=== PATIENT | female | born 1955 | race Caucasian/White ===

== ENCOUNTER 2017-10-01 10:22 | Emergency (ER) | payer OTHER ==
[~2017-10-01] VITALS: Ht 152.4 cm; Wt 68.2 kg
[~2017-10-01 10:22] MED LIST: ALBUAER2 INH; AMOX500C3 PO; GLC500 PO; HYDROCODONE HOMATROPINE PO; LEVO25TA PO
[2017-10-01 10:28] VITALS: TEMP 37.5; Ht 152.4 cm; Wt 68.2 kg
[2017-10-01] MEDS ORDERED: GLC850 PO (10:50)
[2017-10-01] MEDS ORDERED: ATOR10TA82 PO (10:50)
[2017-10-01] MEDS ORDERED: LEVO25TA5 PO (10:50)
[2017-10-01] MEDS ORDERED: KETOROLAC TROMETHAMINE 30 MG/ML VIAL IV STA (11:02)
[2017-10-01] MEDS ORDERED: ALBUTEROL 0.083% NEBU SOLN 3 ML VIAL INH STA (11:02)
--- NOTE | 2017-10-01 11:18 | EMERGENCY ROOM VISIT NOTE ---
History Report prepared by Paul: Jade Soni Under the Supervision of: Dr. Mj Smith M.D. First contact with patient: 10:42 Chief Complaint: FLU LIKE SX Stated Complaint: CHILLS, VOMITING, DAVIS, EXCESSIVE COUGHING History of Present Illness The patient is a 62 year old female who presents to the Emergency Room with complaints of a persistent cough that began night. She also notes that she has a bad headache, chills, URI congestion, and has vomited a couple of times. She describes this as "the worst headache of her life" but it does not hurt her to put her chin to her chest. The patient denies any abdominal pain or muscle aches. She has taken throat spray and Advil and has drank "a little bit of water and ingris anni." The patient states that she had a little bit of juice this morning but she is very thirsty for water. Source of History: patient Onset: 2 days ago Position: chest (respiratory ) Quality: other (cough ) Timing: other (persistent) Associated Symptoms: + headache (worst headache of her life), No abdominal pain Note: Denies muscle aches. Review of Systems See HPI for pertinent positives & negatives. A total of 10 systems reviewed and were otherwise negative. Past Medical & Surgical Medical Problems: (1) Diab Stefanie Wo Compl, Type Ii Or Unspec Type, Not Uncntrld (2) Hypothyroidism (3) Strain of right Achilles tendon Surgical Problems: (1) Hx of dilation and curettage (2) Hx of tonsillectomy Family History Heart disease Social History Smoking Status: Never Smoker Alcohol Use: none Marital Status: Housing Status: lives with family Current/Historical Medications Scheduled Atorvastatin (Lipitor), 10 MG PO DAILY Levothyroxine Sodium (Levothyroxine Sodium), 25 MCG PO DAILY Metformin HCl (Metformin HCl), 850 MG PO DAILY Oseltamivir Phosphate (Tamiflu), 75 MG PO BID Allergies Coded Allergies: Azithromycin (Unverified Allergy, Mild, 02/01/15) Physical Exam Vital Signs Date Time Temp Pulse Resp B/P (MAP) Pulse Ox O2 Delivery O2 Flow Rate FiO2 10/01/17 12:21 108 17 126/64 96 10/01/17 11:48 96 Room Air 10/01/17 11:48 94 Room Air 10/01/17 11:48 108 17 126/64 96 Room Air 10/01/17 10:45 109 10/01/17 10:28 37.5 115 18 138/83 96 Physical Exam GENERAL: Patient is a healthy-appearing well-nourished female HEAD: Normocephalic atraumatic EYES: Ocular movements intact pupils equal and react to light OROPHARYNX mucous membranes are moist no exudates present no erythema or edema present NECK: Supple no nuchal rigidity. No evidence of meningitis encephalitis on exam. CHEST: Good equal expansion LUNGS: Clear and equal to auscultation CARDIAC: Normal S1 and S2 ABDOMEN: Soft nontender no guarding BACK: No CVA tenderness EXTREMITIES: No pain upon palpation normal muscle strength in all groups no clubbing cyanosis or edema NEURO: Patient is following commands and answering questions appropriately. Alert and oriented x3 Cranial Nerves 2-12 grossly intact Medical Decision & Procedures ER Provider Diagnostic Interpretation: Radiology results as stated below per my review and radiologist interpretation: SINGLE VIEW CHEST CLINICAL HISTORY: Dyspnea. FINDINGS: An AP, portable, upright chest radiograph is compared to study dated 02/01/2015. The examination is mildly degraded by portable technique and patient rotation. The cardiomediastinal silhouette is unremarkable. There is mild atherosclerotic calcification of the thoracic aorta. Chronic interstitial thickening is similar to previous. The lungs and pleural spaces are clear. No pneumothorax is seen. The skeletal structures are osteopenic. The bony thorax is grossly intact. Calcific tendinopathy is noted in the left shoulder. IMPRESSION: No active disease in the chest. Electronically signed by: Tobi Lyons M.D. 10/01/2017 11:26 AM Dictated Date/Time: 10/01/2017 11:25 AM Laboratory Results 10/01/17 11:10 Red Blood Count 4.58, Mean Corpuscular Volume 82.5, Mean Corpuscular Hemoglobin 28.6, Mean Corpuscular Hemoglobin Concent 34.7, Mean Platelet Volume 10.3, Neutrophils (%) (Auto) 78.8, Lymphocytes (%) (Auto) 9.1, Monocytes (%) (Auto) 11.6, Eosinophils (%) (Auto) 0.1, Basophils (%) (Auto) 0.1, Neutrophils # (Auto ) 6.09, Lymphocytes # (Auto) 0.70, Monocytes # (Auto) 0.90, Eosinophils # (Auto ) 0.01, Basophils # (Auto) 0.01 10/01/17 11:10 Test 10/01/17 10:40 10/01/17 11:10 Influenza Type A Antigen POS for Influ A (NEG) Influenza Type B Antigen Neg for Influ B (NEG) White Blood Count 7.73 K/uL (4.8-10.8) Red Blood Count 4.58 M/uL (4.2-5.4) Hemoglobin 13.1 g/dL (12.0-16.0) Hematocrit 37.8 % (37-47) Mean Corpuscular Volume 82.5 fL (80-100) Mean Corpuscular Hemoglobin 28.6 pg (25-34) Mean Corpuscular Hemoglobin Concent 34.7 g/dl (32-36) Platelet Count 209 K/uL (130-400) Mean Platelet Volume 10.3 fL (7.4-10.4) Neutrophils (%) (Auto) 78.8 % Lymphocytes (%) (Auto) 9.1 % Monocytes (%) (Auto) 11.6 % Eosinophils (%) (Auto) 0.1 % Basophils (%) (Auto) 0.1 % Neutrophils # (Auto) 6.09 K/uL (1.4-6.5) Lymphocytes # (Auto) 0.70 K/uL (1.2-3.4) Monocytes # (Auto) 0.90 K/uL (0.11-0.59) Eosinophils # (Auto) 0.01 K/uL (0-0.5) Basophils # (Auto) 0.01 K/uL (0-0.2) RDW Standard Deviation 37.3 fL (36.4-46.3) RDW Coefficient of Variation 12.4 % (11.5-14.5) Immature Granulocyte % (Auto) 0.3 % Immature Granulocyte # (Auto) 0.02 K/uL (0.00-0.02) Anion Gap 10.0 mmol/L (3-11) Est Creatinine Clear Calc Drug Dose 77.5 ml/min Estimated GFR () 110.1 Estimated GFR (Non- 95.0 BUN/Creatinine Ratio 20.4 (10-20) Calcium Level 8.8 mg/dl (8.5-10.1) Total Bilirubin 0.6 mg/dl (0.2-1) Aspartate Amino Transf (AST/SGOT) 18 U/L (15-37) Alanine Aminotransferase (ALT/SGPT) 23 U/L (12-78) Alkaline Phosphatase 120 U/L (45-117) Total Protein 7.2 gm/dl (6.4-8.2) Albumin 3.6 gm/dl (3.4-5.0) Globulin 3.6 gm/dl (2.5-4.0) Albumin/Globulin Ratio 1.0 (0.9-2) Labs reviewed by ED physician. Medications Administered Medications (Trade) Dose Ordered Sig/Ian Route Start Time Stop Time Status Last Admin Dose Admin Albuterol Sulfate (Ventolin 0.083% 2.5MG/3ML Neb) 2.5 mg NOW STAT INH 10/01/17 11:02 10/01/17 11:04 DC 10/01/17 11:19 2.5 MG Ketorolac Tromethamine (Toradol Inj) 30 mg NOW STAT IV 10/01/17 11:02 10/01/17 11:04 DC 10/01/17 11:19 30 MG Oseltamivir Phosphate (Tamiflu Cap) 75 mg NOW STAT PO 10/01/17 11:26 10/01/17 11:27 DC 10/01/17 11:48 75 MG Acetaminophen (Tylenol Tab) 1,000 mg NOW STAT PO 10/01/17 11:59 10/01/17 12:00 DC 10/01/17 12:16 1,000 MG ECG Indication: other (Fever) Rate (beats per minute): 103 Rhythm: sinus tachycardia Findings: no acute ischemic change, no ectopy ED Course 1102: Ordered Toradol 30 mg IV, Albuterol Sulfate 2.5 mg INH 1115: Past medical records reviewed. The patient was evaluated in room B6. A complete history and physical examination was performed. 1126 Ordered Tamiflu 75 mg PO. 1159: Ordered Tylenol 1000 mg PO. 1239: Upon reexamination the patient is resting in bed. I discussed results and treatment plan with the patient. She verbalizes agreement and understanding. The patient is ready for discharge. Medical Decision Differential diagnosis: Etiologies such as viral syndrome, otitis, pharyngitis, pneumonia, influenza, meningitis, urinary tract infection, sepsis, bacteremia, as well as others were entertained. -Us is a 62-year-old feel who presents emergency department complaining of headache along with muscle aches and pains. She is positive for the flu. She was given Toradol, seen and Benadryl here in the emergency department. Repeat examination revealed much improvement the patient's symptoms. I do feel that the patient as well as to be discharged home and gave her the pros and cons of starting Tamiflu. The patient wishes to start the Tamiflu using shared medical decision-making and will follow-up with her primary care physician. Blood Pressure Screening Patient's blood pressure: Normal blood pressure Impression Primary Impression: Influenza A Scribe Attestation The scribe's documentation has been prepared under my direction and personally reviewed by me in its entirety. I confirm that the note above accurately reflects all work, treatment, procedures, and medical decision making performed by me. Departure Information Dispostion Home / Self-Care Prescriptions Oseltamivir Phosphate (Tamiflu) 75 Mg Cap 75 MG PO BID, #10 CAP Prov: Mj Smith MD 10/01/17 Referrals Vivi Pena M.D. (PCP) Forms HOME CARE DOCUMENTATION FORM, IMPORTANT VISIT INFORMATION Patient Instructions My [facility] Additional Instructions You have been examined and treated today on an emergency basis only. This is not a substitute for, or an effort to provide, complete comprehensive medical care. It is impossible to recognize and treat all injuries or illnesses in a single emergency department visit. It is therefore important that you follow up closely with DR Pena. Call as soon as possible for an appointment. Thank you for your time and consideration. I look forward to speaking with you again soon. Please don't hesitate to call us if you have any questions.
[2017-10-01 11:23] LABS: INFLUENZA B ANTIGEN Neg for Influ B (NEG)
[2017-10-01] MEDS ORDERED: OSELTAMIVIR PHOSPHATE 75 MG CAP PO STA (11:26)
--- NOTE | 2017-10-01 11:27 | DIAGNOSTIC IMAGING REPORT ---
SINGLE VIEW CHEST CLINICAL HISTORY: Dyspnea. FINDINGS: An AP, portable, upright chest radiograph is compared to study dated 02/01/2015. The examination is mildly degraded by portable technique and patient rotation. The cardiomediastinal silhouette is unremarkable. There is mild atherosclerotic calcification of the thoracic aorta. Chronic interstitial thickening is similar to previous. The lungs and pleural spaces are clear. No pneumothorax is seen. The skeletal structures are osteopenic. The bony thorax is grossly intact. Calcific tendinopathy is noted in the left shoulder. IMPRESSION: No active disease in the chest. Electronically signed by: Tobi Lyons M.D. 10/01/2017 11:26 AM Dictated Date/Time: 10/01/2017 11:25 AM
[2017-10-01 11:47] LABS: BASO % 0.1 %; BASO ABS # 0.01 K/uL (0-0.2); EOS % 0.1 %; EOS ABS # 0.01 K/uL (0-0.5); HEMATOCRIT 37.8 % (37-47); HEMOGLOBIN 13.1 g/dL (12.0-16.0); IG# 0.02 K/uL (0.00-0.02); LYMPH % 9.1 %; MEAN CELL VOLUME 82.5 fL (80-100); MEAN CORPUSCULAR HEMOGLOBIN 28.6 pg (25-34); MEAN CORPUSCULAR HGB CONC 34.7 g/dl (32-36); MEAN PLATELET VOLUME 10.3 fL (7.4-10.4); MONO % 11.6 %; NEUT % 78.8 %; NEUT ABS # 6.09 K/uL (1.4-6.5); PLATELET COUNT 209 K/uL (130-400); RED CELL DISTRIBUTION WIDTH CV 12.4 % (11.5-14.5); RED CELL DISTRIBUTION WIDTH SD 37.3 fL (36.4-46.3); WHITE BLOOD COUNT 7.73 K/uL (4.8-10.8)
[2017-10-01 11:48] VITALS: O2SAT 96
[2017-10-01 11:53] LABS: ALBUMIN 3.6 gm/dl (3.4-5.0); CALCIUM 8.8 mg/dl (8.5-10.1); CREATININE 0.64 mg/dl (0.60-1.20); POTASSIUM 3.8 mmol/L (3.5-5.1)
[2017-10-01 11:56] LABS: TOTAL PROTEIN 7.2 gm/dl (6.4-8.2)
[2017-10-01] MEDS ORDERED: ACETAMINOPHEN 500 MG TAB PO STA (11:59)
[2017-10-01] MEDS ORDERED: OSEL75CA23 PO (12:02)
[2017-10-01 12:21] VITALS: BP 126/64; PULSE 108; O2SAT 96
== END 2017-10-01 12:22 | disposition home or self-care (01) ==
LOC: C.EDB 10:23
DX: J09.X2 Influenza due to identified novel influenza A virus with other respiratory manifestations (principal); E11.9 Type 2 diabetes mellitus without complications; E03.9 Hypothyroidism, unspecified; Z82.49 Family history of ischemic heart disease and other diseases of the circulatory system

== ENCOUNTER 2024-08-25 11:21 | Observation (INO) ==
--- NOTE | 2024-08-25 11:52 | Emergency Department Note ---
Impression & Plan CHF (congestive heart failure), Acute flank pain, Pleural effusion ED Provider Note NAME: JOSEPH BELL AGE: 69 SEX: F : 1955 ARRIVES VIA: Walk-In INFORMANT: Patient ED PROVIDER(S): Sergo De La Cruz DO CHIEF COMPLAINT: Left flank pain HPI: Patient is a 69-year-old female who presents ER for left flank pain. She notes this has been coming going for the past 6 weeks. She denies any headache or change in vision. No chest pain or shortness of breath. No nausea, vomiting, or diarrhea. No dysuria, urgency, or frequency. She was treated for UTI but notes that nothing has changed. She cannot figure out what causes the pain to come and go. Does come and go several times a day. She denies any weakness or numbness in the arms or legs. Pain has been controlled with Motrin and Tylenol. ADDITIONAL HISTORY OBTAINED: Per HPI Chronic Medical/Social Conditions Affecting Care: Per HPI PAST MEDICAL HISTORY:See Below PAST SURGICAL HISTORY:See Below FAMILY HISTORY:See Below SOCIAL HISTORY:See Below HOME MEDICATIONS:See Below ALLERGIES:See Below VITALS:See Below PHYSICAL EXAMINATION: GENERAL: Sitting up in bed, alert, well appearing, well nourished, no distress, non-toxic EYE EXAM: normal conjunctiva. OROPHARYNX: no exudate, no erythema, lips, buccal mucosa, and tongue normal and mucous membranes are moist NECK: supple, no nuchal rigidity, no adenopathy, non-tender LUNGS: Clear to auscultation. Normal chest wall mechanics HEART: no murmurs, S1 normal and S2 normal ABDOMEN: abdomen soft, non-tender, normo-active bowel sounds, no masses, no rebound or guarding. BACK: Back is symmetrical on inspection and there is no deformity, no midline tenderness, no CVA tenderness. SKIN: no rashes and no bruising UPPER EXTREMITIES: upper extremities are grossly normal. LOWER EXTREMITIES: No pitting edema. NEURO EXAM: Normal sensorium, cranial nerves II-XII grossly intact, normal speech, no gross weakness of arms, no gross weakness of legs. Ambulates without difficulty MEDICAL DECISION MAKING: Patient is a 69-year-old female who presents to the ER for the above-stated complaint. IV was established and blood work was obtained. Labs show no significant leukocytosis. Mild anemia 10.6. BMP with a potassium of 3.4. LFTs bilirubin was unremarkable. Troponin was mildly up at 9018. Lipase normal. UA was clean. Chest x-ray with bilateral pleural effusions and CT abdomen pelvis showed large effusions. Patient has no history of CHF. Patient was updated bedside discussed with the hospitalist admitted for further workup. Consults/Care Managements Discussions: Per MDM Triage Nursing notes reviewed. Limited review of prior medical records performed Vital Signs: reviewed and remarkable for HTN Differential diagnosis: Differential diagnoses includes but is not limited to gastritis, peptic ulcer disease, GERD, gallbladder disease, pancreatitis, small bowel obstruction, appendicitis, diverticulitis, hernia, urinary tract infection, torsion, perforation, trauma, infectious. ER treatment provided: See below Diagnostics interpreted by me include EKG and cardiac monitoring as listed below: -Cardiac Monitoring: An order was placed for continuous cardiac monitoring. The monitor shows a rate of 90 with sinus rhythm. -ECG: Sinus rhythm rate of 93 Normal axis No PVCs QTc 450 -Laboratory studies:Interpreted by me as stated above in MDM and shown below. Imaging studies: Xrays: As interpreted by me: Portable AP upright 1 view of the chest shows bilateral effusions CTs show: CT abdomen pelvis shows pleural effusions Procedures:none Critical Care: None Past Med/Surg History Problem List (Updated 08/25/24 @ 17:11 by Sergo De La Cruz DO) Pleural effusion (Acute) Acute flank pain (Acute) CHF (congestive heart failure) (Acute) Upper respiratory infection (Acute) Loose body in knee (Acute) Knee pain, right (Acute) Medical History Arthritis Prediabetes "Not taking anything - PCP monitoring" Surgical History Hx of left cataract extraction Hx of wisdom tooth extraction Hx of colonoscopy "Unsure when" Social History Smoking Status: Never smoker Second Hand Exposure: No; Do You Dip or Chew Tobacco: No; Hx Alcohol Use: Yes Alcohol type: wine Hx Substance Use: No Preferred Language: Albanian Communication Ability: Effective 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 Beliefs That Will Affect Care: None Current Living Situation: Alone Feels Safe at Home: Yes Assistive Devices: Glasses Allergies Allergies Allergy/AdvReac Type Severity Reaction Status Date / Time azithromycin Allergy Mild Unknown Verified 08/25/24 15:17 garlic Allergy Diarrhea Verified 08/25/24 15:17 onion Allergy Diarrhea Verified 08/25/24 15:17 Home Meds Home Medications Medication Instructions Recorded Confirmed acetaminophen 325 mg tablet 325 mg PO QID PRN Pain 08/25/24 08/25/24 benzonatate 200 mg capsule 200 mg PO Q12H 08/25/24 08/25/24 esomeprazole magnesium 40 mg 40 mg PO DAILY 08/25/24 08/25/24 capsule,delayed release ibuprofen 200 mg tablet 200 mg PO Q6H PRN Pain 08/25/24 08/25/24 Results & Data (ED) Vital Signs Vital Signs - 24 hr 08/25/24 11:35 08/25/24 11:51 08/25/24 13:20 Temperature 36.5 C Temperature Source Oral Pulse Rate 95 H 97 H Pulse Rate [Left Finger] 89 Respiratory Rate 15 16 Respiratory Effort / Characteristics Non-Labored Spontaneous Respiratory Depth Normal Respiratory Pattern Regular Blood Pressure 165/82 H Blood Pressure [Left Arm] 155/72 H Blood Pressure Mean 109 Blood Pressure Mean [Left Arm] 99 Pulse Oximetry 98 98 Oxygen Delivery Method Room Air Room Air Sepsis Recent Fever Within 48 Hours No Sepsis New/Unexplained Change in Mental Status N/A Sepsis Action Taken by Nursing No Action Required 08/25/24 14:03 08/25/24 15:28 08/25/24 15:28 Temperature Temperature Source Pulse Rate Pulse Rate [Left Finger] 95 H 92 H Respiratory Rate 16 20 Respiratory Effort / Characteristics Respiratory Depth Respiratory Pattern Blood Pressure Blood Pressure [Left Arm] 176/97 H 191/105 H Blood Pressure Mean Blood Pressure Mean [Left Arm] 123 133 Pulse Oximetry 94 96 96 Oxygen Delivery Method Room Air Sepsis Recent Fever Within 48 Hours Sepsis New/Unexplained Change in Mental Status Sepsis Action Taken by Nursing Laboratory Data 08/25/24 11:57 08/25/24 11:57 Lab Results 08/25/24 08/25/24 08/25/24 Range/Units 11:46 11:57 15:34 WBC 8.27 (4.8-10.8) K/ul RBC 3.71 L (4.20-5.40) M/uL Hgb 10.7 L (12.0-16.0) g/dl Hct 31.4 L (37.0-47.0) % MCV 84.6 (80.0-100.0) fL MCH 28.8 (25.0-34.0) pg MCHC 34.1 (32.0-36.0) g/dL RDW Std Deviation 37.7 (36.4-46.3) fL RDW Coeff of Linette 12.3 (11.5-14.5) % Plt Count 294 (130-400) K/uL MPV 10.2 (9.4-12.4) fL Immature Gran % (Auto) 0.2 % Neut % (Auto) 70.5 % Lymph % (Auto) 21.2 % [place] % (Auto) 5.4 % Eos % (Auto) 2.2 % Baso % (Auto) 0.5 % Neut # (Auto) 5.83 (1.40-6.50) K/uL Lymph # (Auto) 1.75 (1.20-3.40) K/uL [place] # (Auto) 0.45 (0.11-0.59) K/uL Eos # (Auto) 0.18 (0.00-0.50) K/uL Baso # (Auto) 0.04 (0.00-0.20) K/uL Immature Gran # (Auto) 0.02 (0.01-0.20) K/uL Sodium 143 (136-145) mmol/L Potassium 3.4 L (3.5-5.1) mmol/L Chloride 106 (98-107) mmol/L Carbon Dioxide 28 (21-32) mmol/L Anion Gap 9 (3-11) BUN 18 (6-23) mg/dl Creatinine 0.71 (0.6-1.2) mg/dl Est Cr Clr Drug Dosing 63.5 ml/min eGFR 91.41 BUN/Creatinine Ratio 25.4 H (10-20) Glucose 257 H (70-99(Fasting)) mg/dl Estimat Average Glucose 272 mg/dl Hemoglobin A1c 11.1 H (4.5-5.6) % Calcium 9.1 (8.6-10.3) mg/dl Total Bilirubin 0.6 (0.2-1.0) mg/dl AST 14 (13-39) U/L ALT 17 (7-52) U/L Alkaline Phosphatase 94 (34-104) U/L Troponin I High Sens 19.3 H (0-14) pg/ml B-Natriuretic Peptide 703 H (0-100) pg/ml Total Protein 7.1 (6.0-8.3) gm/dl Albumin 4.2 (3.4-5.0) gm/dl Globulin 2.9 (2.5-4.0) gm/dl Albumin/Globulin Ratio 1.4 (0.9-2) Lipase 9 L (11-82) U/L Urine Color Yellow Urine Appearance Clear (Clear) Urine pH 5.5 (4.5-7.5) Ur Specific [place] 1.034 H (1.000-1.030) Urine Protein 4+ H (Negative) Urine Glucose (UA) 3+ H (Negative) Urine Ketones Trace H (Negative) Urine Blood 1+ H (Negative) Urine Nitrite Negative (Negative) Urine Bilirubin Negative (Negative) Urine Urobilinogen Negative (Negative) Ur Leukocyte Esterase Negative (Negative) Urine WBC (Auto) 11-20 H (0-5) /hpf Urine RBC (Auto) 0-2 (0-2) /hpf U Hyaline Cast (Auto) 11-20 H (0-2) /lpf U Epithel Cells (Auto) 6-10 H (0-2) /hpf Urine Bacteria (Auto) None Seen (None Seen) Hyaline Casts Present A (None Presnt) /lpf Administered Medications Discontinued Medications Sodium Chloride (Nss) 1,000 mls @ 999 mls/hr IV .Q1H1M ONE Stop: 08/25/24 12:50 Last Infusion: 08/25/24 13:07 Dose: Infused Documented By: Admin: 08/25/24 12:06 Dose: 999 mls/hr Documented By: RUCHI Ioversol (Optiray 320 100ml) 94 ml IV ONCE ONE Stop: 08/25/24 12:51 Last Admin: 08/25/24 12:50 Dose: 94 ml Documented By: LEAH Imaging Data Radiologist's Impression: Abdomen/Pelvis CT 08/25/24 11:50 CT OF THE ABDOMEN AND PELVIS WITH CONTRAST CLINICAL HISTORY: Left flank pain. COMPARISON STUDY: CT of the abdomen and pelvis July 27, 2024. TECHNIQUE: Following IV administration of 94 mL of Optiray, axial images of the abdomen and pelvis were obtained from the lung bases to the proximal femurs. Images were reviewed in the axial, sagittal, and coronal planes. IV contrast was administered without complication. Automated exposure control was utilized for the study. A dose lowering technique was utilized adhering to the principles of ALARA. CT DOSE: 1027.41 mGy.cm FINDINGS: Moderate to large right and moderate left pleural effusions are partially imaged. These have developed since CT of July 27, 2024. Ground glass opacities with interlobular septal thickening are present. Subpleural opacities favor atelectasis. No pneumatosis, free air or portal venous gas is present liver, spleen, adrenal glands, right kidney and pancreas are unremarkable. Water attenuation 2.3 cm left renal lesion favors a cyst. A few subcentimeter left renal lesions are too small to characterize. There is no biliary or pancreatic ductal dilatation. There are no urinary calculi and there is no hydronephrosis. There is no evidence for a bowel obstruction. The appendix is normal. The caliber and wall thickness of small and large bowel are normal. Intrauterine device is in place. Several fibroids are incidentally noted. IMPRESSION: 1. No acute process within the abdomen or pelvis. 2. No bowel obstruction. No bowel wall thickening. 3. No urinary calculi or hydronephrosis. 4. Interval development of moderate to large right and moderate left pleural effusions with pulmonary edema since CT of July 27, 2024. ACT 112: Negative or not required by law. Electronically signed by: Russ Ferraro M.D. 08/25/2024 2:10 PM Chest X-Ray 08/25/24 14:16 EXAM: Radiograph of the Chest 1 View INDICATION: Shortness of breath. TECHNIQUE: Frontal view of the chest. COMPARISON: No relevant prior studies available. FINDINGS: Lungs and pleural spaces: Family aeration with generalized increased interstitial markings and perihilar and basilar atelectasis. Small pleural effusions present. No pneumothorax.. Heart: Prominent cardiac shadow partially accentuated by technique. Mediastinum: Normal contour. Bones/joints: No fracture, erosion or dislocation. Soft tissues: No abnormality noted. No radiopaque foreign body noted. Upper abdomen: No abnormality noted. IMPRESSION: Abnormalities identified most concerning for CHF. ACT 112: Negative or not required by law. Electronically signed by Karla Cheney 08-25-2024 2:43 PM Discharge Plan Visit Data Chief Complaint: Flank Pain Stated Complaint: PAIN ALONG L SIDE ED Provider: Sergo De La Cruz Discharge Problem: CHF (congestive heart failure), Acute flank pain, Pleural effusion Forms Stand Alone Forms: My [facility] [employer] Prescriptions Prescriptions: No Action acetaminophen 325 mg Tablet 325 mg PO QID PRN (Reason: Pain) benzonatate 200 mg capsule 200 mg PO Q12H esomeprazole magnesium 40 mg capsule,delayed release(DR/EC) 40 mg PO DAILY ibuprofen 200 mg Tablet 200 mg PO Q6H PRN (Reason: Pain) Referrals Referrals: Shelli العراقي MD [Primary Care Provider] - Discharge Problem: CHF (congestive heart failure) Qualifiers: Heart failure type: unspecified Heart failure chronicity: unspecified Qualified Code(s): I50.9 - Heart failure, unspecified
[2024-08-25] MEDS: SODIUM CHLORIDE 0.9% 1,000 ML IV ONE (12:06)
[2024-08-25 12:16] LABS: Appearance Urine Clear (Clear); Bacteria Urine Automated None Seen (None Seen); Bilirubin Urine Negative (Negative); Blood Urine 1+ (Negative); Color Urine Yellow; Glucose Urine UA 3+ (Negative); Hyaline Casts Urine Present /lpf (None Presnt); Ketones Urine Trace (Negative); Leukocyte Esterase Urine Negative (Negative); Nitrite Urine Negative (Negative); Protein Urine 4+ (Negative); RBC Urine Automated 0-2 /hpf (0-2); Specific Gravity Urine 1.034 (1.000-1.030); Urobilinogen Urine Negative (Negative); pH Urine 5.5 (4.5-7.5)
[2024-08-25 12:20] LABS: Basophils # (auto) 0.04 K/uL (0.00-0.20); Basophils % (auto) 0.5 %; Eosinophils # (auto) 0.18 K/uL (0.00-0.50); Eosinophils % (auto) 2.2 %; Hematocrit (blood only) 31.4 % (37.0-47.0); Hemoglobin 10.7 g/dl (12.0-16.0); Immature Granulocytes # (auto) 0.02 K/uL (0.01-0.20); Immature Granulocytes % (auto) 0.2 %; Lymphocytes # (auto) 1.75 K/uL (1.20-3.40); Lymphocytes % (auto) 21.2 %; Mean Corpuscular Hemoglobin 28.8 pg (25.0-34.0); Mean Corpuscular Hgb Conc 34.1 g/dL (32.0-36.0); Mean Corpuscular Volume 84.6 fL (80.0-100.0); Mean Platelet Volume 10.2 fL (9.4-12.4); Monocytes # (auto) 0.45 K/uL (0.11-0.59); Monocytes % (auto) 5.4 %; Neutrophils # (auto) 5.83 K/uL (1.40-6.50); Neutrophils % (auto) 70.5 %; Platelet Count 294 K/uL (130-400); RDW Coefficient of Variation 12.3 % (11.5-14.5); RDW Standard Deviation 37.7 fL (36.4-46.3); Red Blood Count 3.71 M/uL (4.20-5.40); White Blood Count 8.27 K/ul (4.8-10.8)
[2024-08-25 12:33] LABS: Albumin Globulin Ratio 1.4 (0.9-2); Albumin Level 4.2 gm/dl (3.4-5.0); BUN Creatinine Ratio 25.4 (10-20); Bilirubin,Total 0.6 mg/dl (0.2-1.0); Calcium 9.1 mg/dl (8.6-10.3); Creatinine Clr Calc Pharmacy 63.5 ml/min; Globulin 2.9 gm/dl (2.5-4.0); Potassium 3.4 mmol/L (3.5-5.1); Total Protein 7.1 gm/dl (6.0-8.3)
[2024-08-25] MEDS: OPTIRAY 320 100ml IV ONE (12:50)
--- NOTE | 2024-08-25 14:13 | CT Scan Report ---
CT OF THE ABDOMEN AND PELVIS WITH CONTRAST CLINICAL HISTORY: Left flank pain. COMPARISON STUDY: CT of the abdomen and pelvis July 27, 2024. TECHNIQUE: Following IV administration of 94 mL of Optiray, axial images of the abdomen and pelvis we re obtained from the lung bases to the proximal femurs. Images were reviewed in the axial, sagittal, and coronal planes. IV contrast was administered without complication. Automated exposure control wa s utilized for the study. A dose lowering technique was utilized adhering to the principles of ALARA . CT DOSE: 1027.41 mGy.cm FINDINGS: Moderate to large right and moderate left pleural effusions are partially imaged. These hav e developed since CT of July 27, 2024. Ground glass opacities with interlobular septal thickening are present. Subpleural opacities favor atelectasis. No pneumatosis, free air or portal venous gas i s present liver, spleen, adrenal glands, right kidney and pancreas are unremarkable. Water attenuatio n 2.3 cm left renal lesion favors a cyst. A few subcentimeter left renal lesions are too small to je racterize. There is no biliary or pancreatic ductal dilatation. There are no urinary calculi and ther e is no hydronephrosis. There is no evidence for a bowel obstruction. The appendix is normal. The maritza iber and wall thickness of small and large bowel are normal. Intrauterine device is in place. Several fibroids are incidentally noted. IMPRESSION: 1. No acute process within the abdomen or pelvis. 2. No bowel obstruction. No bowel wall thickening. 3. No urinary calculi or hydronephrosis. 4. Interval development of moderate to large right and moderate left pleural effusions with pulmonary edema since CT of July 27, 2024. ACT 112: Negative or not required by law. Electronically signed by: Russ Ferraro M.D. 08/25/2024 2:10 PM
--- NOTE | 2024-08-25 14:43 | XRay Report ---
EXAM: Radiograph of the Chest 1 View INDICATION: Shortness of breath. TECHNIQUE: Frontal view of the chest. COMPARISON: No relevant prior studies available. FINDINGS: Lungs and pleural spaces: Family aeration with generalized increased interstitial markings and perihilar and basilar atelectasis. Small pleural effusions present. No pneumothorax.. Heart: Prominent cardiac shadow partially accentuated by technique. Mediastinum: Normal contour. Bones/joints: No fracture, erosion or dislocation. Soft tissues: No abnormality noted. No radiopaque foreign body noted. Upper abdomen: No abnormality noted. IMPRESSION: Abnormalities identified most concerning for CHF. ACT 112: Negative or not required by law. Electronically signed by Karla Cheney 08-25-2024 2:43 PM
[2024-08-25 14:55] LABS: Troponin I High Sensitivity 19.3 pg/ml (0-14)
--- NOTE | 2024-08-25 16:47 | Discharge Summary ---
Date of Service August 25, 2024 Admission HPI Per Admitting Provider 69 yo female PMHx T2DM on metformin and subclinical hypothyroidism presents with 4-6 weeks of recurrent LUQ abdominal/flank pain. States that it comes and goes, comes on suddenly, and is like a punch to her side. She was seen for the same one month ago in the ED and was thought to have a UTI at the time, was treated with a course of cefpodoxime. The pain has not changed in the interval. Imaging done during that visit was unremarkable. She does note that she had what seems to have been a viral URI around the time the pain started. More recently she describes some dyspnea on exertion when walking that does not seem related to the pain in her abdomen/flank. At present, she denies Discharge Data Allergies Allergy/AdvReac Type Severity Reaction Status Date / Time azithromycin Allergy Mild Unknown Verified 08/25/24 15:17 garlic Allergy Diarrhea Verified 08/25/24 15:17 onion Allergy Diarrhea Verified 08/25/24 15:17 Consultations 08/25/24 14:40 ED Decision to Admit Stat Ordered Studies 08/25/24 11:50 CT abd pelvis IV con only Stat Discharge Plan Forms Stand Alone Forms: [facility] Prescriptions Prescriptions: No Action acetaminophen 325 mg Tablet 325 mg PO QID PRN (Reason: Pain) benzonatate 200 mg capsule 200 mg PO Q12H esomeprazole magnesium 40 mg capsule,delayed release(DR/EC) 40 mg PO DAILY ibuprofen 200 mg Tablet 200 mg PO Q6H PRN (Reason: Pain) Referrals Referrals: Shelli العراقي MD [Primary Care Provider] -
[2024-08-25 16:53] LABS: Estimated Average Glucose 272 mg/dl; Hemoglobin A1C 11.1 % (4.5-5.6)
--- NOTE | 2024-08-25 17:01 | History & Physical Report ---
Date of Service August 25, 2024 Assessment & Plan (1) Pleural effusion: Plan: Etiology unclear Demonstrated on CTAP as moderate to large on right, moderate on left Associated with pulmonary edema Pulm consulted to evaluate for thoracentesis (2) CHF (congestive heart failure): Plan: No history of CHF/CAD BNP 703, Troponin unremarkable Recheck troponin in am Echo ordered Lasix 40mg IV x1 (3) HTN (hypertension): Plan: No past diagnosis Significantly hypertensive since admission No changes in vision, CP, SOB, abdominal pain, LE edema Will start olmesartan in the setting of T2DM PRN Lopressor for systolic >200 Will give one dose of hydralazine 10mg PO (4) T2DM (type 2 diabetes mellitus): Plan: No documented A1c in [place] or [facility] system A1c ordered Continue metformin 500mg BID (5) Subclinical hypothyroidism: Plan: No treatment in outpatient setting will check TSH (6) GERD (gastroesophageal reflux disease): Plan: Continue PPI Plan FENGI: DM2 Code status: full DVT prophylaxis: lovenox Isolation: none Disposition: med tele History of Present Illness Primary Care Provider: Shelli العراقي MD 69 yo female PMHx T2DM on metformin and subclinical hypothyroidism presents with 4-6 weeks of recurrent LUQ abdominal/flank pain. States that it comes and goes, comes on suddenly, and is like a punch to her side. She was seen for the same one month ago in the ED and was thought to have a UTI at the time, was treated with a course of cefpodoxime. The pain has not changed in the interval. Imaging done during that visit was unremarkable. She does note that she had what seems to have been a viral URI around the time the pain started. More recently she describes some dyspnea on exertion when walking that does not seem related to the pain in her abdomen/flank. At present, she denies CP, SOB, abdominal pain, nausea, vomiting, lightheadedness, dizziness, and diarrhea. Allergies Allergy/AdvReac Type Severity Reaction Status Date / Time azithromycin Allergy Mild Unknown Verified 08/25/24 15:17 garlic Allergy Diarrhea Verified 08/25/24 15:17 onion Allergy Diarrhea Verified 08/25/24 15:17 Home Medications Medication Instructions Recorded Confirmed Type acetaminophen 325 mg tablet 325 mg PO QID PRN Pain 08/25/24 08/25/24 History benzonatate 200 mg capsule 200 mg PO Q12H 08/25/24 08/25/24 History esomeprazole magnesium 40 mg 40 mg PO DAILY 08/25/24 08/25/24 History capsule,delayed release ibuprofen 200 mg tablet 200 mg PO Q6H PRN Pain 08/25/24 08/25/24 History Past Med/Surg History Problem List (Updated 08/25/24 @ 17:25 by Yuniel Williamson DO) GERD (gastroesophageal reflux disease) Subclinical hypothyroidism HTN (hypertension) T2DM (type 2 diabetes mellitus) Pleural effusion (Acute) Acute flank pain (Acute) CHF (congestive heart failure) (Acute) Upper respiratory infection (Acute) Loose body in knee (Acute) Knee pain, right (Acute) Medical History Arthritis Prediabetes "Not taking anything - PCP monitoring" Surgical History Hx of left cataract extraction Hx of wisdom tooth extraction Hx of colonoscopy "Unsure when" Social History Smoking Status: Never smoker Second Hand Exposure: No; Do You Dip or Chew Tobacco: No; Hx Alcohol Use: Yes Alcohol type: wine Hx Substance Use: No Preferred Language: Kenyan Communication Ability: Effective Energy And Conservation Technician Required: No Beliefs That Will Affect Care: None Current Living Situation: Alone Feels Safe at Home: Yes Assistive Devices: Glasses Review of Systems Review of Systems: reviewed, per HPI Physical Exam Physical Exam: Constitutional: well-appearing, no acute distress HEENT: NCAT, no conjunctival injection CV: regular rhythm, no murmur appreciated, extremities well-perfused, no LE edema Resp: breath sounds diminished in b/l lower lung fink R>L GI: nondistended MSK: no gross deformities appreciated Skin: warm, dry, no rash appreciated Neuro: alert, oriented, no focal neurologic deficit appreciated Results & Data Results & Data Vital Signs (Past 12 Hours) Vital Signs Temp Pulse Pulse Resp BP BP Pulse Ox 08/25/24 15:28 92 H 20 191/105 H 96 08/25/24 15:28 96 08/25/24 14:03 95 H 16 176/97 H 94 08/25/24 13:20 89 16 155/72 H 98 08/25/24 11:51 97 H 08/25/24 11:35 36.5 C 95 H 15 165/82 H 98 O2 Del Method 08/25/24 15:28 Room Air 08/25/24 15:28 08/25/24 14:03 08/25/24 13:20 Room Air 08/25/24 11:51 08/25/24 11:35 Room Air Code Status & VTE Plan VTE Prophylaxis Plan VTE Prophylaxis will be ordered: Yes Supervising Physician Co-Signing Physician Notes Attending Physician Supervision Note: I independently interviewed and examined the patient and verified the guerra history and physical, reviewed labs and image studies and agree with findings and care plan noted above. 69 y/o F here with worsening left flank pain over 6 weeks. In the ED she has noted to have moderate to large left pleural effusion. Denied any shortness of breath or substernal chest pain. Did have some flulike symptoms after flu shot but it resolved quickly. She was treated for UTI during this duration. Vitals noted, sitting comfortably in the chair, very emotional about being sick, JVD +, RRR, mild bilateral leg edema , left base decreased breath sounds, a bdomen soft Acute CHF -undifferentiated, likely etiology for pleural effusion. -BNP -700. Check echocardiogram -IV Lasix 40 mg dose now. -Monitor fluid balance, renal function -Mild increase in troponin likely from demand ischemia -EKG reviewed. will do serial checks. Moderate to large left pleural effusion -likely secondary to fluid overload. -Pulse ox 95% on room air. -Anticipate improvement with diuresis -Consider diagnostic thoracentesis on Tuesday based on all testing. Hypertension -reports blood pressure being normal at home. -Readings have been consistently high here since arrival to the ER -Add benicar. DM -recent new diagnosis -A1c ordered -11%. -Blood sugar checks AC at bedtime. -On metformin 500 mg daily at home -Add 10 units Lantus daily. Anemia - Hb 1 mth ago 12. Monitor h/h. -Will need to gather information about colon cancer screening. Grief - Recent of . -consult behavior health liaison UA with 4+ protein - Urine very concentrated. Serum protein level normal. -[facility] reche[facility] Res[facility] Activity Tracking Resident Involvement: Resident Care Provided Care Provided: Adult Hospital Medicine (2) CHF (congestive heart failure) Heart failure chronicity: unspecified Heart failure type: unspecified Qualified Code(s): I50.9 - Heart failure, unspecified
[2024-08-25] MEDS: FUROSEMIDE 40 MG/4 ML VIAL IV ONE (17:55)
[2024-08-25] MEDS: hydrALAZINE 10 MG TAB PO ONE ×2 (18:25→21:14)
[2024-08-25] MEDS: IBUPROFEN 600 MG TAB PO STA (18:25)
[2024-08-25] MEDS ORDERED: METOPROLOL TARTRATE 1 MG/ML VIAL IV PRN (21:12)
[2024-08-25] MEDS ORDERED: ALUMINUM/MAGNESIUM SUSP 30 ML UDC PO PRN (21:12)
[2024-08-25] MEDS ORDERED: MAGNESIUM HYDROXIDE SUSP 30 ML UDC PO PRN (21:12)
[2024-08-25] MEDS ORDERED: POLYETHYLENE (MIRALAX) 17 GM PACK PO PRN (21:12)
[2024-08-25] MEDS ORDERED: MELATONIN 3 MG TAB PO PRN (21:12)
[2024-08-25] MEDS: ENOXAPARIN INJ 40 MG/0.4 ML SYR SQ SCH (22:06)
[2024-08-25] MEDS: LANTUS PER UNIT CHARGE SQ SCH (22:06)
[2024-08-25] MEDS ORDERED: PHARMACY GLYCEMIC MGMT CONSULT PRN (22:44)
[2024-08-25] MEDS: INSULIN ASPART PER UNIT CHARGE SC SCH (23:20)
[2024-08-26 03:38] LABS: Basophils # (auto) 0.04 K/uL (0.00-0.20); Basophils % (auto) 0.5 %; Eosinophils # (auto) 0.22 K/uL (0.00-0.50); Eosinophils % (auto) 2.8 %; Hematocrit (blood only) 27.2 % (37.0-47.0); Hemoglobin 9.3 g/dl (12.0-16.0); Immature Granulocytes # (auto) 0.01 K/uL (0.01-0.20); Immature Granulocytes % (auto) 0.1 %; Lymphocytes # (auto) 2.09 K/uL (1.20-3.40); Lymphocytes % (auto) 26.6 %; Mean Corpuscular Hemoglobin 28.7 pg (25.0-34.0); Mean Corpuscular Hgb Conc 34.2 g/dL (32.0-36.0); Mean Platelet Volume 9.9 fL (9.4-12.4); Monocytes # (auto) 0.59 K/uL (0.11-0.59); Monocytes % (auto) 7.5 %; Neutrophils # (auto) 4.91 K/uL (1.40-6.50); Neutrophils % (auto) 62.5 %; Platelet Count 235 K/uL (130-400); RDW Coefficient of Variation 12.5 % (11.5-14.5); RDW Standard Deviation 38.3 fL (36.4-46.3); Red Blood Count 3.24 M/uL (4.20-5.40); White Blood Count 7.86 K/ul (4.8-10.8)
[2024-08-26 03:56] LABS: Albumin Globulin Ratio 1.5 (0.9-2); Albumin Level 3.4 gm/dl (3.4-5.0); BUN Creatinine Ratio 26.5 (10-20); Bilirubin,Total 0.3 mg/dl (0.2-1.0); Calcium 8.2 mg/dl (8.6-10.3); Creatinine Clr Calc Pharmacy 66.5 ml/min; Globulin 2.3 gm/dl (2.5-4.0); Potassium 3.2 mmol/L (3.5-5.1); Total Protein 5.7 gm/dl (6.0-8.3)
[2024-08-26 04:11] LABS: Thyroid Stimulating Hormone 5.66 uIu/ml (0.300-4.500)
[2024-08-26 04:47] LABS: T4 Free Thyroxine 0.87 ng/dl (0.61-1.60)
[2024-08-26] MEDS: INSULIN ASPART PER UNIT CHARGE SC SCH (05:21)
[2024-08-26] MEDS: metFORMIN HCL 500 MG TAB PO SCH (07:58)
--- NOTE | 2024-08-26 08:03 | Hospitalist Progress Note ---
Date of Service August 26, 2024 Assessment & Plan (1) Pleural effusion: Plan: Etiology unclear - may be cardiac related Demonstrated on CTAP as moderate to large on right, moderate on left Associated with pulmonary edema Consider pulm consult for thoracentesis (2) CHF (congestive heart failure): Plan: No history of CHF/CAD BNP 703 on admission, Troponin unremarkable Echo done - no read yet Daily standing weights Lasix as needed (3) HTN (hypertension): Plan: No past diagnosis BP improving Olmesartan 20mg daily PRN Lopressor for systolic >200 (4) T2DM (type 2 diabetes mellitus): Plan: No documented A1c in [place] or [facility] system A1c this visit 11.1 Previously only on metformin 500mg BID Pharmacy glycemic consult Currently: Lantus 20U daily, NovoLog Would consider rechecking UA in setting of proteinuria and low total serum protein once better glucose control is achieved (5) Hypokalemia: Plan: Low on admission Follow BMP Replete as indicated (6) Anemia: Plan: Appears to be new H&H stable, no signs of bleeding Iron studies ordered, follow up (7) Subclinical hypothyroidism: Plan: TSH 5.66 Free T4 0.87 No need for management in the acute setting, follow up outpatient (8) GERD (gastroesophageal reflux disease): Plan: Continue PPI Plan FENGI: DM2 Code status: full DVT prophylaxis: lovenox Isolation: none Disposition: med tele Admission and Anticipated Discharge Date Admission Date: August 25, 2024 Supervising Physician Co-Signing Physician Notes Attending Physician Supervision Note: I independently interviewed and examined the patient and verified the guerra history and physical, reviewed labs and image studies and agree with findings and care plan noted above. 69 y/o F here with worsening left flank pain over 6 weeks. In the ED she has noted to have moderate to large left pleural effusion. Denied any shortness of breath or substernal chest pain. Feeling comfortable this am. denied any chest pain, shortness of breath. Urinated a lot of receiving lasix. Vitals noted, comfortable in bed, mood better today, JVD +, RRR, bilateral leg edema better, left base decreased breath sounds, abdomen soft Acute HFmrEF - -BNP -700. Echo 40-45% - global hypokinesis. Mild LVH, Left atrial dilation, Mild Pul HTN (likely from fluid overload) -Will need ischemic evaluation. -Lipid profile check in am -Continue diuresis. -Monitor fluid balance, renal function -Add beta ilan. -Add spironolactone to help with BP control as well. -Add Entresto Mild Pul HTN - could be due to fluid overload. -denied snoring but considering mild LVH and atrial dilation - consider sleep study as outpatient. Mild increase in troponin likely from demand ischemia -EKG reviewed. will do serial checks. Moderate to large left pleural effusion -likely secondary to fluid overload. -Pulse ox 95% on room air. -Anticipate improvement with diuresis -Could consider diagnostic thoracentesis on Tuesday. Hypertension -reports blood pressure being normal at home. Possibly fluctuating BP -Readings have been consistently high here since arrival to the ER -Adding entresto, spironolactone, beta ilan -For possible fluctuating BP - Would benefit from counselling/daily mindfulness technique incorporation. DM -recent new diagnosis -A1c ordered -11%. -On metformin 500 mg daily at home -Pharmacy consulted. Anemia - Hb 1 mth ago 12. Monitor h/h. -Anemia workup - retic count, iron studies, b12, folate level. -Will need to gather information about colon cancer screening. Grief - Recent of . -consult [employer]. UA with 4+ protein with pleural and pericardial effusion - Urine very concentrated on admission. Serum protein level lower today. -recheck ordered to be done in am. Michelle Physical Exam Physical Exam: Constitutional: well-appearing, no acute distress HEENT: NCAT, no conjunctival injection CV: regular rhythm, no murmur appreciated, extremities well-perfused, no LE edema Resp: breath sounds diminished in b/l lower lung fink R>L GI: nondistended MSK: no gross deformities appreciated Skin: warm, dry, no rash appreciated Neuro: alert, oriented, no focal neurologic deficit appreciated Results & Data Results & Data Vital Signs (Past 12 Hours) Vital Signs Temp Pulse Pulse Resp BP Pulse Ox O2 Del Method 08/26/24 07:26 89 08/26/24 02:52 36.4 C L 83 18 144/80 H 93 Room Air 08/25/24 22:46 36.3 C L 86 18 160/85 H 94 Room Air 08/25/24 21:45 85 08/25/24 20:25 Room Air 08/25/24 20:25 36.5 C 99 H 17 178/89 H 96 Room Air 08/25/24 20:17 92 H Resident Activity Tracking Resident Involvement: Resident Care Provided Care Provided: Adult Hospital Medicine (2) CHF (congestive heart failure) Heart failure chronicity: unspecified Heart failure type: unspecified Qualified Code(s): I50.9 - Heart failure, unspecified
[2024-08-26] MEDS: POTASSIUM CHLORIDE CRTAB 20 MEQ TABCR PO STA ×2 (08:09→19:30)
--- OUTSIDE RECORDS SUMMARY | 2024-08-26 10:17 | External Medical Summary | Continuity of Care Document ---
Author Name Unknown Organization [facility] [id number] [place] [phone] Care Team Providers Care Lease Operator Name Role Phone JoseMirna pedro Farnaz Primary Care Physician [phone] [id number] Date(s): 08/02/24 - 08/02/24 [facility] [address] [facility] [address] [address] [place] [phone] Encounter Diagnosis Body mass index [BMI] 27.0-27.9, adult(Discharge Diagnosis) - 08/02/24 Left upper quadrant abdominal pain(Discharge Diagnosis) - 08/02/24 Cough(Discharge Diagnosis) - 08/02/24 Discharge Disposition: Home or Self Care Attending Physician: MD Dulce Maria, Shelli Burns Allergies, Adverse Reactions, Alerts Substance Criticality Severity Reaction Reaction Severity Status garlic stomach upset Active onions stomach upset Active Immunizations Given and Recorded Vaccine Date Status Refusal Reason influenza virus vaccine, inactivated 07/02/24 Misael rded influenza virus vaccine, inactivated 1 10/27/23 Gi traci influenza virus vaccine, inactivated 06/15/21 Give n 1Early/Late Reason: Early/Late Reason: Other : N/A Medications Astelin 137 mcg/inh nasal spray Start: 07/17/24 1:53:00 PM EST, 1 spray, each nostril, bid, Disp# 30 mL, PRN: as needed for allergy symptoms, Pharmacy: [facility]/pharmacy #[id number] Start Date: 07/17/24 Stop Date: 08/16/24 Status: Ordered cefpodoxime 200 mg oral tablet TAKE 1 TABLET BY MOUTH TWICE A DAY FOR 7 DAYS MUST ADMINISTER WITH A MEAL/FOOD Start Date: 08/02/24 Status: Ordered clobetasol 0.05% topical ointment Start: 06/11/24 3:19:00 PM EDT, 1 appl, topical, bid, Disp# 60 g, Refills: 1, apply a thin layer to vulva, [id number] Start Date: 06/11/24 Stop Date: 08/10/24 Status: Ordered clotrimazole 1% topical cream Start: 07/17/24 2:03:00 PM EST, 1 appl, topical, bid, Disp# 60 g, apply to external vaginal and groin, Pharmacy: [facility] #[id number] Start Date: 07/17/24 Stop Date: 07/24/24 Status: Ordered Flonase 50 mcg/inh nasal spray Start: 06/09/23 9:08:00 AM EDT, 2 spray, each nostril, Daily, Disp# 16 g, Refills: 1, [id number] Start Date: 06/09/23 Stop Date: 08/08/23 Status: Ordered fluconazole 150 mg oral tablet Start: 07/17/24 2:01:00 PM EST, 1 tab, PO, ONCE, Disp# 2 tab, Repeat dose in 3 days, [id number] Start Date: 07/17/24 Status: Ordered metFORMIN 500 mg oral tablet Start: 08/02/24 11:11:00 AM EST, 1 tab, PO, bid, Disp# 60 tab, Refills: 0, Pharmacy: [facility] #[id number] Start Date: 08/02/24 Status: Ordered NexIUM 40 mg oral delayed release capsule Start: 08/02/24 11:06:00 AM EST, 1 cap, PO, Daily, Disp# 30 cap, Refills: 0, Pharmacy: [facility]/pharmacy#[id number] Start Date: 08/02/24 Status: Ordered Tessalon 200 mg oral capsule Start: 08/02/24 11:08:00 AM EST, 1 cap, PO, q12h, Disp# 30 cap, Refills: 1, Pharmacy: [facility]/pharmacy #[id number] Start Date: 08/02/24 Status: Ordered Mental Status 08/02/24 Barriers to Learning one year None evide nt Mandatory Health Literacy Documentation Yes Health Literacy Communication Barriers N ever Primary Language Slovenian Problem List Condition Confirmation Course Effective Dates Status H ealth Status Informant Acute allergic rhinitis Confirmed Active Vaginitis, atrophic Confirmed Active Chronic insomnia Confirmed Active Generalized OA Confirmed Active Dysfunction of eustachian tube Confirmed Active Grief reaction Confirmed Active Adult hypothyroidism Confirmed Active Type 2 diabetes, HbA1c goal < 7% Confirmed Active Diagnosis Diagnosis Type Effective Dates Health Status Cl inical Service Informant Left upper quadrant abdominal pain Discharge Diagnosis 08/02/24 Non-Specified Cough Discharge Diagnosis 08/02/24 Non-Specified Body mass index [BMI] 27.0-27.9, adult Discharge Diagnosis 08/02/24 Non-Specified Procedures Procedure Date Related Diagnosis Body Site Status Fecal occult blood: negative 1 06/28/23 Completed Chest x-ray 2 06/09/23 Completed Mammogram 3 07/16/21 Completed Colonoscopy 04/15/21 Completed D&C - Dilatation and curettage Completed History of tonsillectomy Completed 1cologuard neg [address] [place] [address] Impression: 1. No active chest disease 3No mammographic evidence of malignancy. 1 year screening is recommended. Vital Signs Most recent to oldest [Reference Range]: 1 Height 153.5 cm (08/02/24 10:00 AM) Patient Weight 65.8 kg (08/02/24 10:00 AM) Body Mass Index 27.93 kg/m2 (08/02/24 10:00 AM) Temperature [36.5-37.9 DegC] 36.7 DegC (08/02/24 10:00 AM) Heart Rate 87 bpm (08/02/24 10:00 AM) Respiratory Rate 12 br/min (08/02/24 10:00 AM) Blood Pressure 184/80mmHg (08/02/24 10:00 AM) Cuff Pulse Pressure 104 mmHg (08/02/24 10:00 AM) Social History Social History Type Response Smoking Status Never smoked cigaret maren Sex Female Sex Representation Female (finding) Patient Care team information Care Team Personnel Name: AMALIA Anderson, Mirna Osei Position: Physician Asst Exmpt - Family Med Member Role: Primary Care Provider Address: [address] [place] [id number]
[2024-08-26] MEDS: LOSARTAN POTASSIUM 50 MG TAB PO SCH (10:20)
[2024-08-26] MEDS: PANTOprazole 40 MG TAB PO SCH (10:20)
[2024-08-26] MEDS: FUROSEMIDE 40 MG/4 ML VIAL IV ONE ×2 (10:34→19:30)
[2024-08-26] MEDS: LANTUS PER UNIT CHARGE SQ SCH (13:23)
--- NOTE | 2024-08-26 13:53 | Pharmacy Report ---
Pharmacy Glycemic Short Note 2 - Date of Service August 26, 2024 - Glycemic Short BSG Results (Last 24 hours): 08/25/24 08/26/24 08/26/24 21:18 03:16 04:36 Glucose 247 H POC Glucose 301 H* 241 H 08/26/24 08/26/24 08:56 11:59 Glucose POC Glucose 106 H 266 H OUTPATIENT ANTIDIABETIC REGIMEN: * metformin 500mg BID * HbA1c 11.1 (08/25/24) ASSESSMENT: * Dinora is a 69 YOF admitted with left flank pain and a history of type 2 diabetes mellitus. Pharmacy has been consulted to assist with glycemic management. * BSGs upon admission not well controlled, trended down overnight with a small dose of Lantus, but back up again at lunch. Will increase Lantus dose to a littlemore than a weight based stress of 2 and give once daily starting now. * NovoLog initiated at a weight based stress of 2, no changes at this time. PLAN FOR INPATIENT GLYCEMIC CONTROL: * Hold outpatient oral diabetes medications * Basal insulin * Lantus 20 units SQ daily * Bolus insulin * NovoLog per scale ACHS or Q6hrs while NPO * Goal Range: Low 110 mg/dL - High 140 mg/dL * Correction Factor: 35 mg/dL/unit * Nutritional / Prandial insulin per carb ratio of 1 unit per 11 grams CHO consumed
[2024-08-26] MEDS: ACETAMINOPHEN 325 MG TAB PO PRN (15:45)
--- NOTE | 2024-08-26 17:26 | XCELERA ---
[id number]
[2024-08-26] MEDS: VALSARTAN/SACUBITRIL 26/24MG TAB PO SCH (20:15)
[2024-08-26] MEDS: IBUPROFEN 600 MG TAB PO PRN (22:10)
--- NOTE | 2024-08-27 06:08 | Electrocardiogram Report ---
Test Reason : Blood Pressure : */* mmHG Vent. Rate : 93 BPM Atrial Rate : 93 BPM P-R Int : 150 ms QRS Dur : 90 ms QT Int : 362 ms P-R-T Axes : 62 67 108 degrees QTcB Int : 450 ms Normal sinus rhythm Possible Anterior infarct , age undetermined Abnormal ECG When compared with ECG of 01-Oct-2017 11:24, No significant change was found Confirmed by Ronan Davis ([id number]) on 08/27/2024 6:08:38 AM Referred By: REFERRED SELF Confirmed By: Ronan Davis
[2024-08-27 06:44] LABS: Reticulocyte % 2.14 % (0.50-2.00); Reticulocytes # 0.08 10^6/uL (0.020-0.100)
--- NOTE | 2024-08-27 06:58 | Hospitalist Progress Note ---
Date of Service August 27, 2024 Assessment & Plan (1) Pleural effusion: Plan: Etiology - may be cardiac related Demonstrated on CTAP as moderate to large on right, moderate on left Associated with pulmonary edema Consider pulm consult for thoracentesis (2) CHF (congestive heart failure): Plan: No history of CHF/CAD BNP 703 on admission, Troponin unremarkable Echo done. Shows global hypokinesis. Ejection fraction of 40 to 45%. Mild left ventricular hypertrophy. Daily standing weights Lasix as needed Cardiac Catheterization planned (3) HTN (hypertension): Plan: No past diagnosis BP improving Olmesartan 20mg daily PRN Lopressor for systolic >200 (4) T2DM (type 2 diabetes mellitus): Plan: No documented A1c in [place] or [facility] system A1c this visit 11.1 Previously only on metformin 500mg BID Pharmacy glycemic consult Currently: Lantus 20U daily, SS NovoLog Would consider rechecking UA in setting of proteinuria and low total serum protein once better glucose control is achieved (5) Hypokalemia: Plan: Low on admission Follow BMP Replete as indicated (6) Anemia: Plan: Appears to be new H&H stable, no signs of bleeding Iron studies ordered, follow up (7) Subclinical hypothyroidism: Plan: TSH 5.66 Free T4 0.87 No need for management in the acute setting, follow up outpatient (8) GERD (gastroesophageal reflux disease): Plan: Continue PPI (9) Left flank pain: Plan: She has been having on and off left flank pain since 6 weeks . Pain is aggravated on coughing. CT abdomen and Pelvis with contrast doesn't show any abnormalities. Pain is most likely musculoskeletal in origin. Plan FENGI: DM2 Code status: full DVT prophylaxis: lovenox Isolation: none Disposition: med tele Admission and Anticipated Discharge Date Admission Date: August 25, 2024 Supervising Physician Co-Signing Physician Notes I personally examined the patient and verified all guerra points of history and exam, discussed case, and agree with decision making with Dr Monika Burns lower rib/flank pain ongoing for about 6wks. hurts like being punched, not always there, sometimes seems to come on spontaneously but definitely triggered by coughing as well vitals noted nad heent nc at mmm breathing unlabored no accessory muscles good effort skin no rashes no pallor or icterus L sided ribs exhaled and paraspinals high tone - balanced ligamentous tension and direct myofascial done with some improvement in tissue texture pt tolerated well L flank pain - exhaled ribs from cough. OMT. voltaren gel. taught stretches chronic cough - ?post nasal drip. already takes flonase daily - increase to bid, give therapeutic trial to afrin x 3 days to look for improvement (and if so then probably need to escalate chronic PND treatment) Acute HFmrEF - -BNP -700. Echo 40-45% - global hypokinesis. Mild LVH, Left atrial dilation, Mild Pul HTN (likely from fluid overload) -Will need ischemic evaluation. appreciate cardiology input -Continue diuresis. -Monitor fluid balance, renal function - beta ilan. -spironolactone to help with BP control as well. -Entresto Mild Pul HTN - could be due to fluid overload. -denied snoring but considering mild LVH and atrial dilation - consider sleep study as outpatient. Mild increase in troponin likely from demand ischemia Moderate to large left pleural effusion -likely secondary to fluid overload. -Pulse ox 95% on room air. -can do diagnostic thoracentesis - fortunately stable - strongly suspect fluid is due to CHF Hypertension -reports blood pressure being normal at home. Possibly fluctuating BP -continue current meds DM -recent new diagnosis -A1c ordered -11%. -On metformin 500 mg daily at home -Pharmacy consulted. -follow sugars Anemia - Hb 1 mth ago 12. Monitor h/h. -Anemia workup - retic count, iron studies, b12, folate level. -Will need to gather information about colon cancer screening. Grief - Recent of . -consulted Comp Field Case Manager. UA with 4+ protein with pleural and pericardial effusion - Urine very concentrated on admission. Lovenox Subjective Seen resting comfortably in bed, No acute events overnight. Still having left flank pain on and off. No dyspnea, No chest pain, feels edema is at baseline Review of Systems Review of Systems: reviewed, per HPI Physical Exam Physical Exam: Constitutional: well-appearing, no acute distress HEENT: NCAT, no conjunctival injection CV: regular rhythm, no murmur appreciated, extremities well-perfused, no LE edema Resp: breath sounds diminished in b/l lower lung fink R>L GI: nondistended MSK: no gross deformities appreciated Skin: warm, dry, no rash appreciated Neuro: alert, oriented, no focal neurologic deficit appreciated Results & Data Results & Data Vital Signs (Past 12 Hours) Vital Signs Temp Pulse Pulse Resp BP Pulse Ox O2 Del Method 08/27/24 02:55 36.6 C 84 16 161/88 H 94 Room Air 08/26/24 22:44 Room Air 08/26/24 22:05 83 08/26/24 21:52 36.5 C 85 18 156/87 H 94 Room Air 08/26/24 19:11 36.8 C 91 H 16 149/81 H 94 Room Air Resident Activity Tracking Resident Involvement: Resident Care Provided Care Provided: Adult Hospital Medicine (2) CHF (congestive heart failure) Heart failure chronicity: unspecified Heart failure type: unspecified Qualified Code(s): I50.9 - Heart failure, unspecified
[2024-08-27 07:04] LABS: BUN Creatinine Ratio 32.1 (10-20); Calcium 8.6 mg/dl (8.6-10.3); Creatinine Clr Calc Pharmacy 57.1 ml/min; Potassium 3.6 mmol/L (3.5-5.1)
[2024-08-27 07:24] LABS: Ferritin 389.3 ng/ml (8-388)
[2024-08-27 07:25] LABS: Folate (Folic Acid),Ser orPlas 17.88 ng/ml (>5.38)
[2024-08-27] MEDS: METOPROLOL SUCC 25MG EXT REL TAB PO SCH (08:06)
[2024-08-27] MEDS: SPIRONOLACTONE 25 MG TAB PO SCH (08:07)
[2024-08-27] MEDS: FUROSEMIDE 40 MG/4 ML VIAL IV SCH (08:14)
[2024-08-27] MEDS: ASPIRIN 81 MG CHEW PO SCH (08:14)
--- NOTE | 2024-08-27 08:21 | Cardiology Consultation ---
Date of Consultation August 27, 2024 Assessment & Plan (1) Heart failure with mildly reduced ejection fraction (HFmrEF, 41-49%): (2) Cardiomyopathy: (3) Dyslipidemia: (4) HTN (hypertension): (5) Pericardial effusion: (6) Pulmonary hypertension: (7) Pleural effusion: Plan ASSESSMENT/PLAN: 1. Cardiomyopathy: Etiology uncertain. Could possibly be related to myocarditis given recent URI. She has multiple risk factors for coronary disease, including uncontrolled diabetes and dyslipidemia. Recommend cardiac catheterization to evaluate for CAD. Risks and benefits of cardiac catheterization were discussed with her in detail. She was made aware that CT surgery is not available at this facility. She was agreeable to proceed. Anticipate cardiac catheterization on 08/28/2024, but not urgently indicated. She has been placed on medical therapy by primary hospitalist service. 2. Heart failure with mildly reduced EF: Had edema and has pleural effusions, with mild pulmonary hypertension on echo. She received intravenous Lasix today with the hospitalist service. Strict I's and O's. Daily weights. Low-sodium diet, less than 2000 mg daily. Avoid NSAIDs. Filling pressures can be evaluated during cardiac catheterization. She is now on mineralocorticoid receptor antagonist, ARNI, beta-ilan. Will consider SGLT2 inhibitor as well. 3. Pulmonary hypertension: Will consider right heart catheterization. 4. Pleural effusion: As per primary hospitalist service. Can consider thoracentesis. 5. Dyslipidemia: Recommend high intensity statin therapy. 6. Type 2 diabetes: Poorly controlled. New diagnosis per patient. Considering SGLT2 inhibitor for her cardiac issues as above later this hospital stay. 7. Flank/abdominal pain: As per primary hospitalist service. 8. Hypertension: Blood pressure had been elevated but better controlled today. Continue medical therapy. 9. Anemia: Seems new compared to 07/27/2024. Per primary hospitalist service. 10. Pericardial effusion: Her effusion does not appear to be hemodynamically significant. It is small. Will monitor with repeat echo, likely later this hospital stay. May be related to recent URI. 11. Disposition: Cardiology will continue to follow. N.p.o. after midnight. Highly complex medical issues. Thank you for allowing me to participate in the care of your patient. Please call for any other questions or concerns. Sincerely, Jovanni Davis M.D. History of Present Illness Reason for Consultation: "small pericardial effusion" Requesting Physician: Dr. Dwyer Attending Physician: Sergo Jackson DO History of Present Illness Ms. Ko is a very pleasant 69-year-old female with a history significant for cardiomyopathy, heart failure, type 2 diabetes, hypertension, and dyslipidemia. She was admitted on 08/25/2024 after presenting with recurrent left upper quadrant abdominal/flank pain. She has had the following studies/procedures: 1. Echo 08/26/2024 [facility]: Top normal LV size. LVEF 40-45%. Global hypokinesis. Mild LVH. Normal RV size and systolic function. Severe left atrial dilation. Mild MR. RVSP 44. Small pericardial effusion without echocardiographic evidence of tamponade physiology. She states that she had a flu shot approximately 6 weeks ago and this was followed by upper respiratory infection. She has been experiencing recurrent left flank/abdominal discomfort without trigger. She noted a cough that was initially productive when experiencing her URI. She has had mild edema noted here by providers and admits that she noted that her boots were not fitting well prior to presentation. She denies chest pain, syncope, near syncope, palpitations, melena, hematochezia, or hematuria. She denies fevers, chills, nausea, or vomiting. While here, she was noted to have pleural effusion and reduced LV systolic f unction. She has been diagnosed with diabetes with her A1c during this visit elevated at 11.1 and her lipid profile demonstrated significantly elevated LDL of 169. When she walked at the mall last week, she felt sluggish but denies shortness of breath. Review of systems: As above. Family history: Mother had ND at the age of 77. Social history: She denies tobacco, alcohol, or drug abuse. Her . She lives alone. She has a daughter in [place]. 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 She was unaccompanied. Allergies Allergy/AdvReac Type Severity Reaction Status Date / Time azithromycin Allergy Mild Unknown Verified 08/25/24 15:17 garlic Allergy Diarrhea Verified 08/25/24 15:17 onion Allergy Diarrhea Verified 08/25/24 15:17 Home Medications Medication Instructions Recorded Confirmed Type acetaminophen 325 mg tablet 325 mg PO QID PRN Pain 08/25/24 08/25/24 History benzonatate 200 mg capsule 200 mg PO Q12H 08/25/24 08/25/24 History esomeprazole magnesium 40 mg 40 mg PO DAILY 08/25/24 08/25/24 History capsule,delayed release ibuprofen 200 mg tablet 200 mg PO Q6H PRN Pain 08/25/24 08/25/24 History Problem List (Updated 08/27/24 @ 22:53 by Ronan Davis MD) Pulmonary hypertension Pericardial effusion Dyslipidemia Cardiomyopathy Heart failure with mildly reduced ejection fraction (HFmrEF, 41-49%) Left flank pain Anemia Hypokalemia GERD (gastroesophageal reflux disease) Subclinical hypothyroidism HTN (hypertension) T2DM (type 2 diabetes mellitus) Pleural effusion (Acute) Acute flank pain (Acute) CHF (congestive heart failure) (Acute) Upper respiratory infection (Acute) Loose body in knee (Acute) Knee pain, right (Acute) Patient History Medical History Arthritis Surgical History Hx of left cataract extraction Hx of wisdom tooth extraction Hx of colonoscopy "Unsure when" Social History Smoking Status: Never smoker Second Hand Exposure: No; Do You Dip or Chew Tobacco: No; Tobacco Cessation Education Requested by Patient: No Hx Alcohol Use: No Hx Substance Use: No Preferred Language: Tajik Communication Ability: Effective Recreation Facility Attendant Required: No Beliefs That Will Affect Care: None Current Living Situation: Alone Current Living Situation Comment: lives home alone Other Information That Helps Us Care for You: No Feels Safe at Home: Yes Assistive Devices: None Physical Exam Physical Exam: Gen.: No acute distress. Alert and oriented. HEENT: Anicteric sclera. Neck: No JVD. No bruits. Normal carotid upstrokes bilaterally. Cardiac: Regular. Normal S1-S2. No murmurs, rubs, or gallops. Pulmonary: Decreased breath sounds at the bases, involving the left more so than the right, otherwise clear to auscultation bilaterally without wheezes, rales, or rhonchi. Abdomen: Soft, nontender, nondistended, with normoactive bowel sounds. No bruits noted. Extremities: 2+ radial pulses bilaterally. 2+ posterior tibialis pulses bilaterally. No edema or cyanosis. Results & Data Vital Signs (Past 12 Hours) Vital Signs Temp Pulse Pulse Resp BP Pulse Ox O2 Del Method 08/27/24 07:27 94 H 08/27/24 02:55 36.6 C 84 16 161/88 H 94 Room Air 08/26/24 22:44 Room Air 08/26/24 22:05 83 08/26/24 21:52 36.5 C 85 18 156/87 H 94 Room Air Intake & Output 08/25/24 08/26/24 08/27/24 08/28/24 06:59 06:59 06:59 06:59 Intake Total 1000 / 1000 1320 / 1320 Output Total 400 / 400 801 / 801 Balance 600 / 600 519 / 519 Weight 151 lb 0.266 oz 146 lb 9.718 oz Laboratory Results Laboratory Results - last 24 hr 08/26/24 08/26/24 08/26/24 08:54 08:56 11:59 Reticulocyte % (Auto) Reticulocyte # Sodium Potassium Chloride Carbon Dioxide Anion Gap BUN Creatinine Est Cr Clr Drug Dosing eGFR BUN/Creatinine Ratio Glucose POC Glucose 106 H 266 H Calcium Iron Transferrin Ferritin Troponin I High Sens 17.9 H Triglycerides Cholesterol LDL Cholesterol, Calc VLDL Cholesterol, Calc HDL Cholesterol Cholesterol/HDL Ratio Vitamin B12 Folate 08/26/24 08/26/24 08/26/24 15:19 17:12 17:57 Reticulocyte % (Auto) Reticulocyte # Sodium Potassium Chloride Carbon Dioxide Anion Gap BUN Creatinine Est Cr Clr Drug Dosing eGFR BUN/Creatinine Ratio Glucose POC Glucose 94 110 H Calcium Iron Transferrin Ferritin Troponin I High Sens 15.5 H Triglycerides Cholesterol LDL Cholesterol, Calc VLDL Cholesterol, Calc HDL Cholesterol Cholesterol/HDL Ratio Vitamin B12 Folate 08/26/24 08/27/24 08/27/24 20:07 06:00 07:57 Reticulocyte % (Auto) 2.14 H Reticulocyte # 0.080 Sodium 141 Potassium 3.6 Chloride 104 Carbon Dioxide 30 Anion Gap 7 BUN 25 H Creatinine 0.78 Est Cr Clr Drug Dosing 57.1 eGFR 81.66 BUN/Creatinine Ratio 32.1 H Glucose 131 H POC Glucose 177 H 125 H Calcium 8.6 Iron 51 Transferrin 174 L Ferritin 389.3 H Troponin I High Sens Triglycerides 236 H Cholesterol 259 H LDL Cholesterol, Calc 169 VLDL Cholesterol, Calc 47 H HDL Cholesterol 43 Cholesterol/HDL Ratio 6.0 H Vitamin B12 219 Folate 17.88 Diagnostic Findings Labs reviewed and notable for elevated BNP, minimally elevated high-sensitivity troponin peaking at 20.7, normal potassium, normal renal function, significantly elevated A1c, nonelevated transaminase levels, elevated TSH, elevated LDL, anemia. Chest x-ray 08/25/2024: Increased interstitial markings. Small pleural effusions. Per radiology. Chest x-ray image personally reviewed and agreeable for increased vascular markings. No obvious infiltrate. CT abdomen/pelvis 08/25/2024: No acute process within the abdomen or pelvis per radiology. Moderate to large right and moderate left pleural effusions with pulmonary edema new since 07/27/2024 study per radiology. Echo 08/26/2024 report reviewed as per HPI. ECG personally reviewed 08/25/2024: Sinus rhythm 93 bpm. Possible anterior infarct. History and physical report reviewed. Telemetry personally reviewed: Sinus rhythm. No arrhythmia. Medications Administered Current Inpatient Medications Acetaminophen (Acetaminophen 325 Mg Tab) 650 mg PO Q4H PRN PRN Reason: pain/fever Stop: 09/24/24 21:11 Last Admin: 08/27/24 03:00 Dose: 650 mg Al Hydrox/Mg Hydrox/Simethicone (Aluminum/Magnesium Susp 30 Ml Udc) 30 ml PO Q6H PRN PRN Reason: Dyspepsia Stop: 09/24/24 21:11 Aspirin (Aspirin 81 Mg Chew) 81 mg PO DAILY TANYA Stop: 09/26/24 08:59 Last Admin: 08/27/24 08:14 Dose: 81 mg Enoxaparin Sodium (Enoxaparin Inj 40 Mg/0.4 Ml Syr) 40 mg SQ Q24H TANYA Stop: 09/24/24 21:29 Last Admin: 08/26/24 20:11 Dose: 40 mg Furosemide (Furosemide 40 Mg/4 Ml Vial) 40 mg IV DAILY TANYA Stop: 09/26/24 08:59 Last Admin: 08/27/24 08:14 Dose: 40 mg Ibuprofen (Ibuprofen 600 Mg Tab) 600 mg PO Q8H PRN PRN Reason: Pain Stop: 09/25/24 15:14 Last Admin: 08/26/24 22:10 Dose: 600 mg Insulin Aspart (Insulin Aspart Per Unit Charge) 0 units SC ACHS [facility] Stop: 09/24/24 22:44 Last Admin: 08/26/24 20:11 Dose: 2 units Insulin Glargine (Lantus Per Unit Charge) 20 units SQ DAILY TANYA Stop: 09/25/24 13:14 Last Admin: 08/26/24 13:23 Dose: 20 units Magnesium Hydroxide (Magnesium Hydroxide Susp 30 Ml Udc) 30 ml PO Q6H PRN PRN Reason: Constipation Stop: 09/24/24 21:11 Melatonin (Melatonin 3 Mg Tab) 3 mg PO HS PRN PRN Reason: Insomnia Stop: 09/24/24 21:11 Metoprolol Succinate (Metoprolol Succ 25mg Ext Rel Tab) 25 mg PO QAM [facility] Stop: 09/26/24 08:59 Last Admin: 08/27/24 08:06 Dose: 25 mg Metoprolol Tartrate (Metoprolol Tartrate 1 Mg/Ml Vial) 5 mg IV Q5M PRN PRN Reason: Blood Pressure systolic >200 Stop: 09/24/24 21:11 Miscellaneous Information (Pharmacy Glycemic Mgmt Consult) 1 each N/A UD PRN; Protocol PRN Reason: Consult Stop: 09/24/24 22:43 Ondansetron HCl (Ondansetron Inj 2 Mg/Ml 2 Ml Vial) 4 mg IV Q6H PRN PRN Reason: Nausea Stop: 09/24/24 21:11 Pantoprazole Sodium (Pantoprazole 40 Mg Tab) 40 mg PO DAILY [facility] Stop: 09/25/24 08:59 Last Admin: 08/27/24 08:07 Dose: 40 mg Polyethylene Glycol (Polyethylene (Miralax) 17 Gm Pack) 17 gm PO DAILY PRN PRN Reason: Constipation Stop: 09/24/24 21:11 Sacubitril/Valsartan (Valsartan/Sacubitril 26/24mg Tab) 1 tab PO BID [facility] Stop: 09/25/24 20:59 Last Admin: 08/27/24 08:06 Dose: 1 tab Spironolactone (Spironolactone 25 Mg Tab) 25 mg PO QAM [facility] Stop: 09/26/24 08:59 Last Admin: 08/27/24 08:07 Dose: 25 mg PG Care Time/CCT Total # of Minutes Spent Total Time Spent with Patient: Total time spent is greater than 50% in coordination of care (as documented) at patient's floor/unit and/or counseling patient: Coding Level of Care Code 87023 INT INP/OBS CARE 3/75MIN Diagnoses Heart failure with mildly reduced ejection fraction (HFmrEF, 41-49%) I50.20 Cardiomyopathy I42.9 Dyslipidemia E78.5 HTN (hypertension) I10 Pericardial effusion I31.39 Pulmonary hypertension I27.20 Pleural effusion J90
--- NOTE | 2024-08-27 09:40 | Hospitalist Progress Note ---
Date of Service August 27, 2024 Assessment & Plan Admission and Anticipated Discharge Date Admission Date: August 25, 2024 Subjective Seen resting comfortably in bed, No acute events overnight. No dyspnea, No chest pain, feels edema is at baseline Review of Systems Review of Systems: reviewed, per HPI Physical Exam Physical Exam: Constitutional: well-appearing, no acute distress HEENT: NCAT, no conjunctival injection CV: regular rhythm, no murmur appreciated, extremities well-perfused, no LE edema Resp: breath sounds diminished in b/l lower lung fink R>L GI: nondistended MSK: no gross deformities appreciated Skin: warm, dry, no rash appreciated Neuro: alert, oriented, no focal neurologic deficit appreciated Results & Data Results & Data Vital Signs (Past 12 Hours) Vital Signs Temp Pulse Pulse Resp BP Pulse Ox O2 Del Method 08/27/24 08:30 36.6 C 87 20 147/81 H 90 Room Air 08/27/24 07:27 94 H 08/27/24 02:55 36.6 C 84 16 161/88 H 94 Room Air 08/26/24 22:44 Room Air 08/26/24 22:05 83 08/26/24 21:52 36.5 C 85 18 156/87 H 94 Room Air
--- NOTE | 2024-08-27 10:47 | Pharmacy Report ---
Pharmacy Glycemic Short Note 2 - Date of Service August 27, 2024 - Glycemic Short BSG Results (Last 24 hours): 08/26/24 08/26/24 08/26/24 11:59 17:12 17:57 Glucose POC Glucose 266 H 94 110 H 08/26/24 08/27/24 08/27/24 20:07 06:00 07:57 Glucose 131 H POC Glucose 177 H 125 H OUTPATIENT ANTIDIABETIC REGIMEN: * metformin 500mg BID * HbA1c 11.1 (08/25/24) ASSESSMENT: 08/27/24 * Patient received 34 units of insulin yesterday, 20 units basal. Fasting BG at goal. No changes in Lantus at this time. * BG improved yesterday and this morning, (breakfast was not covered with NovoLog yesterday resulting in BG of 266mg/dL), continue NovoLog parameters at this time. 08/26/24 * Dinora is a 69 YOF admitted with left flank pain and a history of type 2 diabetes mellitus. Pharmacy has been consulted to assist with glycemic management. * BSGs upon admission not well controlled, trended down overnight with a small dose of Lantus, but back up again at lunch. Will increase Lantus dose to a lit tlemore than a weight based stress of 2 and give once daily starting now. * NovoLog initiated at a weight based stress of 2, no changes at this time. PLAN FOR INPATIENT GLYCEMIC CONTROL: * Hold outpatient oral diabetes medications * Basal insulin * Lantus 20 units SQ daily * Bolus insulin * NovoLog per scale ACHS or Q6hrs while NPO * Goal Range: Low 110 mg/dL - High 140 mg/dL * Correction Factor: 35 mg/dL/unit * Nutritional / Prandial insulin per carb ratio of 1 unit per 11 grams CHO consumed
--- NOTE | 2024-08-27 16:40 | Billing Data ---
Date of Service August 27, 2024 Coding Level of Care Code 99772 SUB INP/OBS CARE MIN
[2024-08-27] MEDS: DICLOFENAC SOD 1% GEL 100 GM TUBE EXT SCH (17:30)
[2024-08-27] MEDS: OXYMETAZOLINE 0.05% 30 ML BTL SCH (20:15)
[2024-08-27] MEDS: FLUTICASONE PROPIONATE NA SPR 16 GM BTL SCH (20:15)
[2024-08-28 08:47] LABS: Hematocrit (blood only) 32.5 % (37.0-47.0); Hemoglobin 10.9 g/dl (12.0-16.0); Mean Corpuscular Hemoglobin 28.2 pg (25.0-34.0); Mean Corpuscular Hgb Conc 33.5 g/dL (32.0-36.0); Mean Corpuscular Volume 84.2 fL (80.0-100.0); Platelet Count 297 K/uL (130-400); RDW Coefficient of Variation 12.4 % (11.5-14.5); RDW Standard Deviation 37.5 fL (36.4-46.3); Red Blood Count 3.86 M/uL (4.20-5.40); White Blood Count 7.61 K/ul (4.8-10.8)
[2024-08-28 09:03] LABS: BUN Creatinine Ratio 36.7 (10-20); Calcium 8.4 mg/dl (8.6-10.3); Creatinine Clr Calc Pharmacy 56.4 ml/min; Potassium 3.5 mmol/L (3.5-5.1)
--- NOTE | 2024-08-28 10:09 | Hospitalist Progress Note ---
Date of Service August 28, 2024 Assessment & Plan (1) Pleural effusion: Plan: Etiology - Most probably due to Congestive Heart Failure Demonstrated on CTAP as moderate to large on right, moderate on left Associated with pulmonary edema Consider thoracentesis if effusion doesn't resolve on it own or she has symptoms of difficulty breathing, increased cough and chest pain. (2) CHF (congestive heart failure): Plan: No history of CHF/CAD BNP 703 on admission, Troponin unremarkable Echo done. Shows global hypokinesis. Ejection fraction of 40 to 45%. Mild left ventricular hypertrophy, left Atrial Dilation Daily standing weights Lasix as needed Cardiac Catheterization performed today. Patient is doing well post catheterization. Plan for discharge tomorrow if there is no any new concerns. (3) HTN (hypertension): Plan: No past diagnosis BP improving Olmesartan 20mg daily PRN Lopressor for systolic >200 (4) T2DM (type 2 diabetes mellitus): Plan: No documented A1c in [place] or [facility] system A1c this visit 11.1 Previously only on metformin 500mg BID Pharmacy glycemic consult Currently: Lantus 20U daily, NovoLog Counseled the patient on the benefits of exercise for insulin resistance. Would consider rechecking UA in setting of proteinuria and low total serum protein once better glucose control is achieved (5) Hypokalemia: Plan: Low on admission Follow BMP Potassium today is 3.5 (6) Anemia: Plan: Appears to be new H&H stable, no signs of bleeding Iron studies done. Reports are Normal. (7) Subclinical hypothyroidism: Plan: TSH 5.66 Free T4 0.87 No need for management in the acute setting, follow up outpatient (8) GERD (gastroesophageal reflux disease): Plan: Continue PPI (9) Left flank pain: Plan: Musculoskeletal in origin Pain is better with Voltaren gel and some stretching. Plan FENGI: DM2 Code status: full DVT prophylaxis: lovenox Isolation: none Disposition: med tele Admission and Anticipated Discharge Date Admission Date: August 25, 2024 Supervising Physician Co-Signing Physician Notes I personally examined the patient and verified all guerra points of history and exam, discussed case, and agree with decision making with Dr Frank Cardiology input appreciated. Extensive discussion with patient in regards to coronary disease, diabetes, etc. vitals noted nad heent nc at mmm breathing unlabored no accessory muscles good effort skin no rashes no pallor or icterus L sided ribs exhaled and paraspinals high tone - balanced ligamentous tension and direct myofascial done with some improvement in tissue texture pt tolerated well L flank pain - exhaled ribs from cough. OMT done very briefly again today. continue voltaren gel. taught stretches chronic cough - ?post nasal drip. already takes flonase daily - increased to bid, give therapeutic trial to afrin x 3 days to look for improvement (and if so then probably need to escalate chronic PND treatment) Acute HFmrEF - and coronary artery disease -BNP -700. Echo 40-45% - global hypokinesis. Mild LVH, Left atrial dilation, Mild Pul HTN (likely from fluid overload) - continue med management, secondary risk reduction, close follow-up in regards to her CHF and coronary disease Mild Pul HTN - could be due to fluid overload. -denied snoring but considering mild LVH and atrial dilation - consider sleep study as outpatient. Mild increase in troponin likely from demand ischemia Moderate to large left pleural effusion -likely secondary to fluid overload. -Pulse ox 95% on room air. -can do diagnostic thoracentesis - fortunately stable - strongly suspect fluid is due to CHF Hypertension -reports blood pressure being normal at home. Possibly fluctuating BP -continue current meds DM -recent new diagnosis -A1c ordered -11%. - extensive discussion on lifestyle as it interfaces with diabetes, and the critical importance of glycemic control in regards to vascular disease Anemia - Hb 1 mth ago 12. Monitor h/h. -Anemia workup - retic count, iron studies, b12, folate level. B12 somewhat lowreplace -Will need to follow-up with PCP about colon cancer screening. Grief - Recent of . -consulted Division Chief. UA with 4+ protein with pleural and pericardial effusion - Urine very concentrated on admission. Lovenox hopefully home tomorrow Subjective Seen resting comfortably in bed, No acute events overnight. Her flank pain is better now. No dyspnea, No chest pain, feels edema is at baseline Review of Systems Review of Systems: reviewed, per HPI Physical Exam Physical Exam: Gen.: No acute distress. Alert and oriented. HEENT: Anicteric sclera. Neck: No JVD. No bruits. Normal carotid upstrokes bilaterally. Cardiac: Regular. Normal S1-S2. No murmurs, rubs, or gallops. Pulmonary: Decreased breath sounds at the bases, involving the left more so than the right, otherwise clear to auscultation bilaterally without wheezes, rales, or rhonchi. Abdomen: Soft, nontender, nondistended, with normoactive bowel sounds. No bruits noted. Extremities: 2+ radial pulses bilaterally. 2+ posterior tibialis pulses bilaterally. No edema or cyanosis. Results & Data Results & Data Vital Signs (Past 12 Hours) Vital Signs Temp Pulse Pulse Resp BP Pulse Ox O2 Del Method 08/28/24 08:30 36.3 C L 72 20 120/84 92 Room Air 08/28/24 07:14 79 08/28/24 02:58 36.5 C 76 18 144/82 H 98 Room Air 08/27/24 22:24 36.3 C L 84 18 136/75 94 Room Air (2) CHF (congestive heart failure) Heart failure chronicity: unspecified Heart failure type: unspecified Qualified Code(s): I50.9 - Heart failure, unspecified
[2024-08-28] MEDS: niCARdipine 2,000 MCG/20 ML SYR ONE (11:45)
[2024-08-28] MEDS: LIDOCAINE 1% LOCAL 20 ML VIAL ONE (11:45)
[2024-08-28 11:49] LABS: iSTAT Arterial Blood Gas HCO3 30 meg/L (19-24); iSTAT Arterial Blood Gas pCO2 50 mmHg (35-46); iSTAT Arterial Blood Gas pH 7.38 (7.35-7.45); iSTAT Arterial Blood Gas pO2 34 mmHg (80-95); iSTAT Carbon Dioxide 31 mmol/L (24-31); iSTAT Hematocrit 30 % (37-47); iSTAT Hemoglobin 10.2 g/dl (12.0-16.0); iSTAT Potassium 3.7 mmol/L (3.3-5.0); iSTAT Sodium 140 mmol/L (135-144)
[2024-08-28] MEDS: OPTIRAY 350 ONE (12:42)
[2024-08-28] MEDS: HEPARIN (PORCINE) 1000 UNIT/ML 10 ML (CATH LAB USE ONLY) ONE (12:42)
[2024-08-28] MEDS: fentaNYL citrate PF 100 MCG/2 ML VIAL ONE (12:42)
[2024-08-28] MEDS: MIDAZOLAM HCL 1 MG/ML 2ML VIAL ONE (12:42)
[2024-08-28] MEDS: NITROGLYCERIN/D5W 100MCG/ML 20ML SYR ONE (12:43)
--- NOTE | 2024-08-28 12:50 | Post Operative Brief Note ---
Cardiology Brief Post Op Date of Surgery August 28, 2024 Pre & Post Diagnosis Operation Date: 08/28/24 10:30 <No data on this case meets the specified criteria> Procedure right and left heart cath with cor angio Ski Patrol Officer Ronan Davis MD Powerhouse Mechanic Apprentice Showers Estimated Blood Loss 25 Findings See Below See full report for details: Severe CAD of the LAD and RCA PL.
--- NOTE | 2024-08-28 13:09 | Post Anesthesia Assessment ---
Date of Service August 28, 2024 Post Sedation Assessment Vital Signs Temp Pulse Pulse Pulse Resp BP Pulse Ox 08/28/24 12:40 08/28/24 10:39 78 14 143/83 H 98 08/28/24 08:30 36.3 C L 72 20 120/84 92 08/28/24 07:14 79 08/28/24 02:58 36.5 C 76 18 144/82 H 98 08/27/24 22:24 36.3 C L 84 18 136/75 94 08/27/24 20:45 08/27/24 19:22 36.6 C 79 18 112/69 90 08/27/24 15:15 36.8 C 73 18 125/76 92 08/27/24 14:08 78 O2 Del Method 08/28/24 12:40 Room Air 08/28/24 10:39 Room Air 08/28/24 08:30 Room Air 08/28/24 07:14 08/28/24 02:58 Room Air 08/27/24 22:24 Room Air 08/27/24 20:45 Room Air 08/27/24 19:22 Room Air 08/27/24 15:15 Room Air 08/27/24 14:08 Recovery Score Activity: Moves 4 extremities Respiration: Deep Breath/Cough Circulation: +/-20% PreAnes Value Consciousness: Fully Awake Oxygen Saturation: > 92% On Room Air Discharge Sedation Level of Care: Fast Track Phase II Post Sedation Plan On clinical assessment, the patient appears to have tolerated the sedation without complications. Patient is recovering as anticipated. Patient will continue to be monitored by nursing and may be discharged when sedation discharge criteria are met per below protocol. Upon Completions of procedure up to 15 minutes continue every 5 minute vital signs and the P.A.R. score; then discharge to a Phase I or Fast Track to Phase II per the following guidelines: * Discharge Patient to appropriate Phase II area if PAR is 8 or greater or return to pre- procedure baseline. The post - procedure orders will be as directed. * If PAR score is less than 8 or not return to pre-procedure baseline then patient will follow Phase I monitoring till PAR is reached for Phase II. The Phase I may be done in procedure room or may call to secure a Phase I area. * If naloxone or flumazenil are used for reversal, hold in Phase I for continued monitoring from when last reversal dose was given for a minimum of 60 minutes or longer pending the nurse and/or physician discretion of patient condition before discharge to Phase II. Please call the Sedation Physician to re-evaluate and complete post-note for discharge to Phase II area. Do NOT discharge from procedure sedation or Phase 1 until post- sedation evaluation note is complete by procedure /sedation MD Sedation Discharge Instructions to be given to the patient at discharge to home.
[2024-08-28 13:43] LABS: iSTAT Arterial Blood Gas HCO3 28 meg/L (19-24); iSTAT Arterial Blood Gas pCO2 49 mmHg (35-46); iSTAT Arterial Blood Gas pH 7.37 (7.35-7.45); iSTAT Arterial Blood Gas pO2 71 mmHg (80-95); iSTAT Carbon Dioxide 30 mmol/L (24-31); iSTAT Hematocrit 29 % (37-47); iSTAT Hemoglobin 9.9 g/dl (12.0-16.0); iSTAT Potassium 3.4 mmol/L (3.3-5.0); iSTAT Sodium 141 mmol/L (135-144)
[2024-08-28 14:03] LABS: iSTAT Arterial Blood Gas HCO3 29 meg/L (19-24); iSTAT Arterial Blood Gas pCO2 50 mmHg (35-46); iSTAT Arterial Blood Gas pH 7.37 (7.35-7.45); iSTAT Arterial Blood Gas pO2 39 mmHg (80-95); iSTAT Carbon Dioxide 31 mmol/L (24-31); iSTAT Hematocrit 30 % (37-47); iSTAT Hemoglobin 10.2 g/dl (12.0-16.0); iSTAT Potassium 3.6 mmol/L (3.3-5.0); iSTAT Sodium 140 mmol/L (135-144)
--- NOTE | 2024-08-28 18:03 | Billing Data ---
Date of Service August 28, 2024 Coding Level of Care Code 00515 SUB INP/OBS CARE MIN
[2024-08-28] MEDS: ATORVASTATIN 40 MG TAB PO SCH (21:28)
[2024-08-28] MEDS: ONDANSETRON INJ 2 MG/ML 2 ML VIAL IV PRN (21:28)
--- NOTE | 2024-08-28 22:13 | Cardiac Catheterization ---
[facility] Data: Seeing Eye Dog Trainer Cardiac Status Clinical evaluation leading to the procedure CAD Presenation: No Sxs, No angina Anginal Classification: No Symptoms Heart Failure: NYHA Class: CCS III Cardiogenic Shock within 24 Hours: No Cardiac Arrest within 24 Hours: No Imaging Studies Past 6 Months: Yes Stress Studies Past 6 Months: No Coronary Anatomy Dominant: Right Diagnostic Physicians Name: Ronan Davis MD Status: Elective Closure Device Percutaneous Entry Location: Radial Closure Device: Radial Band Recommendations: Management Recommendatons Cardiac Cath Procedure Full Procedure Date August 28, 2024 Pre-Procedure Diagnosis Pre-Procedure Diagnosis: CHF and Cardiomyopathy AUC Score AUC Score: 7 Post-Procedure Diagnosis Post-Procedure Diagnosis: Severe CAD Procedure(s) Performed Procedure(s) Performed: Coronary Angiography, Left Heart Cath and Right Heart Cath Product Test Specialist Ronan Davis MD Car Dumper Operator(s) Showers Estimated Blood Loss Estimated Blood Loss: < 30 Medication(s) Medication(s): Fentanyl, Heparin, Lidocaine 1%, Nicardipine and Versed Summary of Findings Procedures: 1. Coronary angiography 2. Left heart catheterization 3. Right heart catheterization 4. Radial artery angiography 5. Moderate sedation Indication: Ms. Ko is a pleasant 69-year-old female with a history significant for cardiomyopathy, heart failure with mildly reduced EF, type 2 diabetes, hypertension, dyslipidemia, and pulmonary hypertension suggested on echo. Coronary angiography: 1. Left main: No significant CAD. 2. Left anterior descending: Significant calcifications noted in the proximal to mid LAD. Ostial to proximal LAD 50-70%. Mid LAD 50-60%. Late mid LAD longer segment of 80% followed by a shorter segment of 80% stenosis. Distally, small caliber vessel. FLY-3 flow. Small D1 with mild CAD diffusely. Medium caliber D2. 3. Circumflex: Proximal circumflex 30%. Mid circumflex diffuse mild CAD. OM 1 very small caliber. OM 2 without significant CAD. 4. Right coronary artery: Large and dominant vessel. Calcifications noted within the proximal RCA. Proximal RCA diffuse mild CAD. Mid PL branch 70-80%. PDA without significant CAD. FLY-3 flow. Left heart catheterization: 1. Left ventriculography was not performed. 2. LVEDP 16 mmHg. 3. No aortic stenosis. Right heart catheterization: 1. Pulmonary capillary wedge pressure: V wave 8; mean 7 mmHg. 2. Pulmonary artery pressure: 20/3 with a mean of 9 mmHg. 3. Right ventricular pressure: 15/0 with RVEDP 2 mmHg. 4. Right atrial pressure: A wave 3; V wave 1; mean 1 mmHg. 5. Cardiac output via thermodilution was 3.6 L/min with a cardiac index of 2.2 L/min/m. 6. PVR 0.6 Wood units. Radial artery angiography: 1. J-tip wire was unable to be advanced throughout the right radial artery. Angiography demonstrated that the catheter and wire wire and a small caliber artery that would have to traverse a full loop to enter central circulation. Decision was made to use the left radial artery. 2. J-tip wire did not advance within the left radial artery. Angiography demonstrated again a small caliber left radial artery with less tortuosity. A Glidewire was successfully advanced through the left radial artery. Moderate sedation: 1. Sedation start time: 11:23 AM 2. Sedation end time: 12:40 PM Impression: 1. Severe CAD involving LAD and PL branch. 2. Otherwise nonobstructive CAD. 3. No aortic stenosis. 4. Nonelevated left-sided filling pressures. 5. No pulmonary hypertension. Plan: 1. Images were reviewed with Dr. Pizano of interventional cardiology. Mid LAD PCI seemed possible but no symptoms to suggest angina. Given findings of LAD with extensive CAD, can pursue nonurgent, outpatient CT surgery evaluation to discuss possibilities. 2. Risk factor modification. 3. Continue GDMT for heart failure with mildly reduced EF. Hemodynamics Rest Ao:: 109/47 Final Ao: 125/52 LV: 126/6/16 Recommendations Recommendations: Management Recommendatons Specimens Specimens: None Radiation Exposure (mGy) 849 mGy. Fluoro time 15.2 min. Contrast (mls) 40 Procedural Complication(s) None Disposition PCU I attest to the content of the Intraoperative Record and any orders documented therein. Any exceptions are noted below. Blink for iPhone and Android Card Cath Procedure Codes Cardiac Catheterization Procedure 1: Cardiovascular Cath Procedures: 63682 Coronaries & LHC (+/-LV) & RHC Moderate Sedation Procedure 1: Sedation/Anesthesia: 98660 Mod Sedation by the same physician;Init15 Min Child Age 5 & Up Procedure 2: Sedation/Anesthesia: 16266 Mod Sedation by the same physician; Ea Additi [id number] Minutes Procedure 3: Sedation/Anesthesia: 61739 Mod Sedation by the same physician; Ea [id number] Minutes Procedure 4: Sedation/Anesthesia: 73330 Mod Sedation by the same physician; Ea [id number] Minutes Procedure 5: Sedation/Anesthesia: 67479 Mod Sedation by the same physician; Ea [id number] Minutes Procedure 6: Sedation/Anesthesia: 43219 Mod Sedation by the same physician; Ea [id number] Minutes PG Care Time/CCT Total # of Minutes Spent Total Time Spent with Patient: Total time spent is greater than 50% in coordination of care (as documented) at patient's floor/unit and/or counseling patient:
--- NOTE | 2024-08-28 22:44 | Cardiology Progress Note ---
Date of Service August 28, 2024 Assessment & Plan (1) CAD (coronary artery disease): (2) Heart failure with mildly reduced ejection fraction (HFmrEF, 41-49%): (3) Cardiomyopathy: (4) Dyslipidemia: (5) HTN (hypertension): (6) Pericardial effusion: (7) Pulmonary hypertension: (8) Pleural effusion: Plan ASSESSMENT/PLAN: 1. CAD: Interventional cardiology recommends evaluation by CT surgery to consider options. This can be done in the outpatient setting nonurgently. She has no angina. Could consider PCI of LAD or PL for angina. Continue antiplatelet therapy, high intensity statin therapy. Risk factor modification. 2. Cardiomyopathy: Etiology uncertain. Could possibly be related to myocarditis given recent URI. As documented CAD but not clearly ischemic in origin given global hypokinesis and predominantly LAD severe CAD. Continue medical therapy. Monitor with surveillance echoes in the outpatient setting. 3. Heart failure with mildly reduced EF: Had edema and has pleural effusions, with mild pulmonary hypertension on echo. Filling pressures were not elevated during right and left heart catheterization today. PA pressure normal on right heart cath on 08/28/2024. Discontinue intravenous Lasix and can start Lasix 20 mg p.o. once daily tomorrow. Strict I's and O's. Daily weights. Low-sodium diet, less than 2000 mg daily. Avoid NSAIDs. She is now on mineralocorticoid receptor antagonist, ARNI, beta-ilan. Will consider SGLT2 inhibitor as well. If renal function stable, SGLT2 inhibitor can be initiated tomorrow. 4. Pulmonary hypertension: Elevated RVSP on echo but no pulmonary hypertension noted on right heart catheterization on 08/28/2024. 5. Pleural effusion: As per primary hospitalist service. 6. Dyslipidemia: Recommend high intensity statin therapy. 7. Type 2 diabetes: Poorly controlled. New diagnosis per patient. Considering SGLT2 inhibitor for her cardiac issues as above later this hospital stay. 8. Flank/abdominal pain: As per primary hospitalist service. Does not appear to be cardiac in nature. 9. Hypertension: Mildly elevated most of today but due to nausea, did not receive all of her medications. Continue medical therapy. 10. Anemia: Seems new compared to 07/27/2024. Per primary hospitalist service. 11. Pericardial effusion: Her effusion does not appear to be hemodynamically significant. It is small. Repeat echo tomorrow. May be related to recent URI. 12. Disposition: Cardiology will continue to follow. Patient communicated with Dr. Jackson of the primary hospitalist service. Heart failure program. Offered to contact patient's family in regards to cath findings but she declined and wished to do so herself. Admission and Anticipated Discharge Date Admission Date: August 25, 2024 Subjective Patient seen this morning. She underwent cardiac catheterization which demonstrated severe CAD involving the LAD and PL branch. She denies chest pain. Her flank pain has improved and is intermittent. She denies shortness of breath, syncope, near syncope, palpitations. She was unaccompanied. Physical Exam Physical Exam: Gen.: No acute distress. Alert and oriented. HEENT: Anicteric sclera. Neck: No JVD. No hepatojugular reflux. Cardiac: Regular. Normal S1-S2. No murmurs, rubs, or gallops. Pulmonary: Clear to auscultation bilaterally without wheezes, rales, or rhonchi. Abdomen: Soft, nontender, nondistended, with normoactive bowel sounds. No bruits noted. Extremities: 2+ radial pulses bilaterally. 2+ posterior tibialis pulses bilaterally. No edema or cyanosis. Results & Data Vital Signs (Past 12 Hours) Vital Signs Temp Pulse Resp BP BP Pulse Ox O2 Del Method 08/28/24 20:00 36.5 C 95 H 18 131/78 95 Room Air 08/28/24 18:05 75 18 124/71 94 Room Air 08/28/24 17:05 76 18 145/83 H 95 Room Air 08/28/24 16:05 81 18 147/79 H 95 Room Air 08/28/24 15:05 36.4 C L 72 18 158/83 H 95 Room Air 08/28/24 14:05 67 18 144/78 H 94 Room Air 08/28/24 13:35 72 18 154/89 H 95 Room Air 08/28/24 13:15 76 14 178/76 H 98 Room Air 08/28/24 12:50 76 14 150/63 H 98 Room Air 08/28/24 12:40 Room Air 08/28/24 10:39 78 14 143/83 H 98 Room Air Intake & Output 08/26/24 08/27/24 08/28/24 08/29/24 06:59 06:59 06:59 06:59 Intake Total 1000 / 1000 1320 / 1320 480 / 480 250 / 250 Output Total 400 / 400 801 / 801 950 / 950 1 / Balance 600 / 600 519 / 519 -470 / -470 249 / 249 Weight 151 lb 0.266 oz 146 lb 9.718 oz 146 lb 9.718 oz Laboratory Results Laboratory Results - last 24 hr 08/28/24 08/28/24 08/28/24 08:10 08:22 11:35 WBC 7.61 RBC 3.86 L Hgb 10.9 L POC Hgb 10.2 L Hct 32.5 L POC Hct 30 L MCV 84.2 MCH 28.2 MCHC 33.5 RDW Std Deviation 37.5 RDW Coeff of Linette 12.4 Plt Count 297 MPV 10.0 POC pH 7.37 POC pCO2 50 H POC pO2 39 L POC HCO3 29 H POC Total CO2 31 POC Base Excess 4.0 H POC ABG O2 Sat 71.0 L POC Sodium 140 Sodium 139 POC Potassium 3.6 Potassium 3.5 Chloride 103 Carbon Dioxide 31 Anion Gap 5 BUN 29 H Creatinine 0.79 Est Cr Clr Drug Dosing 56.4 eGFR 80.42 BUN/Creatinine Ratio 36.7 H Glucose 162 H POC Glucose 161 H Calcium 8.4 L 08/28/24 08/28/24 08/28/24 11:36 11:39 15:53 WBC RBC Hgb POC Hgb 10.2 L 9.9 L Hct POC Hct 30 L 29 L MCV MCH MCHC RDW Std Deviation RDW Coeff of Linette Plt Count MPV POC pH 7.38 7.37 POC pCO2 50 H 49 H POC pO2 34 L 71 L POC HCO3 30 H 28 H POC Total CO2 31 30 POC Base Excess 5.0 H 3.0 H POC ABG O2 Sat 62.0 L 93.0 POC Sodium 140 141 Sodium POC Potassium 3.7 3.4 Potassium Chloride Carbon Dioxide Anion Gap BUN Creatinine Est Cr Clr Drug Dosing eGFR BUN/Creatinine Ratio Glucose POC Glucose 231 H Calcium 08/28/24 20:53 WBC RBC Hgb POC Hgb Hct POC Hct MCV MCH MCHC RDW Std Deviation RDW Coeff of Linette Plt Count MPV POC pH POC pCO2 POC pO2 POC HCO3 POC Total CO2 POC Base Excess POC ABG O2 Sat POC Sodium Sodium POC Potassium Potassium Chloride Carbon Dioxide Anion Gap BUN Creatinine Est Cr Clr Drug Dosing eGFR BUN/Creatinine Ratio Glucose POC Glucose 87 Calcium Diagnostic Findings Cardiac Cath 08/28/24: Coronary angiography: 1. Left main: No significant CAD. 2. Left anterior descending: Significant calcifications noted in the proximal to mid LAD. Ostial to proximal LAD 50-70%. Mid LAD 50-60%. Late mid LAD longer segment of 80% followed by a shorter segment of 80% stenosis. Distally, small caliber vessel. FLY-3 flow. Small D1 with mild CAD diffusely. Medium caliber D2. 3. Circumflex: Proximal circumflex 30%. Mid circumflex diffuse mild CAD. OM 1 very small caliber. OM 2 without significant CAD. 4. Right coronary artery: Large and dominant vessel. Calcifications noted within the proximal RCA. Proximal RCA diffuse mild CAD. Mid PL branch 70-80%. PDA without significant CAD. FLY-3 flow. Left heart catheterization: 1. Left ventriculography was not performed. 2. LVEDP 16 mmHg. 3. No aortic stenosis. Right heart catheterization: 1. Pulmonary capillary wedge pressure: V wave 8; mean 7 mmHg. 2. Pulmonary artery pressure: 20/3 with a mean of 9 mmHg. 3. Right ventricular pressure: 15/0 with RVEDP 2 mmHg. 4. Right atrial pressure: A wave 3; V wave 1; mean 1 mmHg. 5. Cardiac output via thermodilution was 3.6 L/min with a cardiac index of 2.2 L/min/m. 6. PVR 0.6 Wood units. Telemetry personally reviewed: Sinus rhythm. No arrhythmia. Chart reviewed. Labs reviewed and notable for stable renal function, normal potassium, anemia. Medications Administered Current Inpatient Medications Acetaminophen (Acetaminophen 325 Mg Tab) 650 mg PO Q4H PRN PRN Reason: pain/fever Stop: 09/24/24 21:11 Last Admin: 08/28/24 21:28 Dose: 650 mg Al Hydrox/Mg Hydrox/Simethicone (Aluminum/Magnesium Susp 30 Ml Udc) 30 ml PO Q6H PRN PRN Reason: Dyspepsia Stop: 09/24/24 21:11 Aspirin (Aspirin 81 Mg Chew) 81 mg PO DAILY TANYA Stop: 09/26/24 08:59 Last Admin: 08/28/24 08:16 Dose: Not Given Atorvastatin Calcium (Atorvastatin 40 Mg Tab) 80 mg PO HS TANYA Stop: 09/27/24 20:59 Last Admin: 08/28/24 21:28 Dose: 80 mg Diclofenac Sodium (Diclofenac Sod 1% Gel 100 Gm Tube) 4 gm EXT QID [facility]; Protocol Stop: 09/26/24 16:59 Last Admin: 08/28/24 21:27 Dose: 4 gm Enoxaparin Sodium (Enoxaparin Inj 40 Mg/0.4 Ml Syr) 40 mg SQ Q24H [facility] Stop: 09/24/24 21:29 Last Admin: 08/28/24 21:25 Dose: 40 mg Fluticasone Propionate (Fluticasone Propionate Na Spr 16 Gm Btl) 1 sprays NA BID [facility] Stop: 09/26/24 20:59 Last Admin: 08/28/24 21:26 Dose: 1 sprays Furosemide (Furosemide 40 Mg/4 Ml Vial) 40 mg IV DAILY [facility] Stop: 09/26/24 08:59 Last Admin: 08/28/24 08:18 Dose: Not Given Ibuprofen (Ibuprofen 600 Mg Tab) 600 mg PO Q8H PRN PRN Reason: Pain Stop: 09/25/24 15:14 Last Admin: 08/26/24 22:10 Dose: 600 mg Insulin Aspart (Insulin Aspart Per Unit Charge) 0 units SC ACHS [facility] Stop: 09/24/24 22:44 Last Admin: 08/28/24 21:34 Dose: Not Given Insulin Glargine (Lantus Per Unit Charge) 20 units SQ DAILY [facility] Stop: 09/25/24 13:14 Last Admin: 08/28/24 08:26 Dose: 10 units Magnesium Hydroxide (Magnesium Hydroxide Susp 30 Ml Udc) 30 ml PO Q6H PRN PRN Reason: Constipation Stop: 09/24/24 21:11 Melatonin (Melatonin 3 Mg Tab) 3 mg PO HS PRN PRN Reason: Insomnia Stop: 09/24/24 21:11 Metoprolol Succinate (Metoprolol Succ 25mg Ext Rel Tab) 25 mg PO QAM [facility] Stop: 09/26/24 08:59 Last Admin: 08/28/24 08:27 Dose: 25 mg Metoprolol Tartrate (Metoprolol Tartrate 1 Mg/Ml Vial) 5 mg IV Q5M PRN PRN Reason: Blood Pressure systolic >200 Stop: 09/24/24 21:11 Miscellaneous Information (Pharmacy Glycemic Mgmt Consult) 1 each N/A UD PRN; Protocol PRN Reason: Consult Stop: 09/24/24 22:43 Ondansetron HCl (Ondansetron Inj 2 Mg/Ml 2 Ml Vial) 4 mg IV Q6H PRN PRN Reason: Nausea Stop: 09/24/24 21:11 Last Admin: 08/28/24 21:28 Dose: 4 mg Oxymetazoline HCl (Oxymetazoline 0.05% 30 Ml Btl) 1 sprays NA BID [facility] Stop: 09/26/24 20:59 Last Admin: 08/28/24 21:26 Dose: 1 sprays Pantoprazole Sodium (Pantoprazole 40 Mg Tab) 40 mg PO DAILY [facility] Stop: 09/25/24 08:59 Last Admin: 08/28/24 08:18 Dose: Not Given Polyethylene Glycol (Polyethylene (Miralax) 17 Gm Pack) 17 gm PO DAILY PRN PRN Reason: Constipation Stop: 09/24/24 21:11 Sacubitril/Valsartan (Valsartan/Sacubitril 26/24mg Tab) 1 tab PO BID [facility] Stop: 09/25/24 20:59 Last Admin: 08/28/24 21:28 Dose: 1 tab Spironolactone (Spironolactone 25 Mg Tab) 25 mg PO QAM [facility] Stop: 09/26/24 08:59 Last Admin: 08/28/24 08:27 Dose: 25 mg PG Care Time/CCT Total # of Minutes Spent Total Time Spent with Patient: Total time spent is greater than 50% in coordination of care (as documented) at patient's floor/unit and/or counseling patient: Coding Level of Care Code 37731 SUB INP/OBS CARE 3/50MIN Diagnoses CAD (coronary artery disease) I25.10 Heart failure with mildly reduced ejection fraction (HFmrEF, 41-49%) I50.20 Cardiomyopathy I42.9 Dyslipidemia E78.5 HTN (hypertension) I10 Pericardial effusion I31.39 Pulmonary hypertension I27.20 Pleural effusion J90
[2024-08-29 07:26] VITALS: RESP 18; TEMP 97.5
[2024-08-29] MEDS: FUROSEMIDE 20 MG TAB PO SCH (08:09)
[2024-08-29 08:47] LABS: Basophils # (auto) 0.05 K/uL (0.00-0.20); Basophils % (auto) 0.7 %; Eosinophils # (auto) 0.24 K/uL (0.00-0.50); Eosinophils % (auto) 3.1 %; Hematocrit (blood only) 32.9 % (37.0-47.0); Hemoglobin 11.2 g/dl (12.0-16.0); Immature Granulocytes # (auto) 0.02 K/uL (0.01-0.20); Immature Granulocytes % (auto) 0.3 %; Lymphocytes # (auto) 2.02 K/uL (1.20-3.40); Lymphocytes % (auto) 26.5 %; Mean Corpuscular Hemoglobin 28.9 pg (25.0-34.0); Mean Platelet Volume 10.1 fL (9.4-12.4); Monocytes # (auto) 0.64 K/uL (0.11-0.59); Monocytes % (auto) 8.4 %; Neutrophils # (auto) 4.66 K/uL (1.40-6.50); Platelet Count 277 K/uL (130-400); RDW Coefficient of Variation 12.4 % (11.5-14.5); RDW Standard Deviation 38.2 fL (36.4-46.3); Red Blood Count 3.87 M/uL (4.20-5.40); White Blood Count 7.63 K/ul (4.8-10.8)
[2024-08-29 08:58] LABS: Albumin Globulin Ratio 1.2 (0.9-2); Albumin Level 3.3 gm/dl (3.4-5.0); Bilirubin,Total 0.3 mg/dl (0.2-1.0); Calcium 8.5 mg/dl (8.6-10.3); Globulin 2.7 gm/dl (2.5-4.0); Potassium 4.1 mmol/L (3.5-5.1)
--- NOTE | 2024-08-29 09:58 | Discharge Summary ---
Date of Service August 29, 2024 Admission HPI Per Admitting Provider 69 yo female PMHx T2DM on metformin and subclinical hypothyroidism presents with 4-6 weeks of recurrent LUQ abdominal/flank pain. States that it comes and goes, comes on suddenly, and is like a punch to her side. She was seen for the same one month ago in the ED and was thought to have a UTI at the time, was treated with a course of cefpodoxime. The pain has not changed in the interval. Imaging done during that visit was unremarkable. She does note that she had what seems to have been a viral URI around the time the pain started. More recently she describes some dyspnea on exertion when walking that does not seem related to the pain in her abdomen/flank. At present, she denies CP, SOB, abdominal pain, nausea, vomiting, lightheadedness, dizziness, and diarrhea. Admission Exam Per Admitting Provider Gen.: No acute distress. Alert and oriented. HEENT: Anicteric sclera. Neck: No JVD. No bruits. Normal carotid upstrokes bilaterally. Cardiac: Regular. Normal S1-S2. No murmurs, rubs, or gallops. Pulmonary: Decreased breath sounds at the bases, involving the left more so than the right, otherwise clear to auscultation bilaterally without wheezes, rales, or rhonchi. Abdomen: Soft, nontender, nondistended, with normoactive bowel sounds. No bruits noted. Extremities: 2+ radial pulses bilaterally. 2+ posterior tibialis pulses bilat erally. No edema or cyanosis. Principal Diagnosis 1. Congestive Heart Failure, Pleural Effusions 2. Uncontrolled, Type 2 Diabetes Mellitus (A1c > 10) 3. Hyperlipidemia 4. Hypertension Discharge Exam Gen.: No acute distress. Alert and oriented. HEENT: Anicteric sclera. Neck: No JVD. No bruits. Normal carotid upstrokes bilaterally. Cardiac: Regular. Normal S1-S2. No murmurs, rubs, or gallops. Pulmonary: Decreased breath sounds at the bases, involving the left more so than the right, otherwise clear to auscultation bilaterally without wheezes, rales, or rhonchi. Abdomen: Soft, nontender, nondistended, with normoactive bowel sounds. No bruits noted. Extremities: 2+ radial pulses bilaterally. 2+ posterior tibialis pulses bilaterally. No edema or cyanosis. Discharge Data Allergies Allergy/AdvReac Type Severity Reaction Status Date / Time azithromycin Allergy Mild Unknown Verified 08/25/24 15:17 garlic Allergy Diarrhea Verified 08/25/24 15:17 onion Allergy Diarrhea Verified 08/25/24 15:17 Consultations 08/25/24 14:40 ED Decision to Admit Stat 08/26/24 19:23 Consult Cardiology Routine 08/28/24 14:55 [facility] CHF Program Referral Routine Procedures Performed Operation Date: 08/28/24 10:30 Actual Procedures p Cath, Right and Left Heart - Ronan Davis MD s Cineradiography w/Routine Exam - Ronan Davis MD Ordered Studies 08/25/24 11:50 CT abd pelvis IV con only Stat 08/28/24 10:14 CL Cath Imgs for PACS use only Routine Diabetes Follow up Diabetes Follow-up Needed for HgbA1c >9% Hospital Course (1) Pleural effusion: Etiology - Most probably due to Congestive Heart Failure Demonstrated on CTAP as moderate to large on right, moderate on left Associated with pulmonary edema Consider thoracentesis if effusion doesn't resolve on it own in 1 month or she has symptoms of difficulty breathing, increased cough and chest pain. (2) CHF (congestive heart failure): No history of CHF/CAD BNP 703 on admission, Troponin unremarkable Echo done. Shows global hypokinesis. Ejection fraction of 40 to 45%. Mild left ventricular hypertrophy, left Atrial Dilation Cardiac Catheterization performed on 08/28. Patient is doing well post catheterization. Will be discharged home today. Metoprolol, Spironolactone and Entresto addded. Followup with PCP after a week. Check BNP. (3) HTN (hypertension): No past diagnosis BP improving Olmesartan 20mg daily. Follow up with PCP and regular monitoring of BP needed (4) T2DM (type 2 diabetes mellitus): No documented A1c in [place] or [facility] system A1c this visit 11.1 Previously only on metformin 500mg BID at home Managed with SC Insulin Discharge with Insulin Aspart 3 units per meal &Insulin Glargine 15 units per day (at night) Follow up with PCP after a week. (5) Hypokalemia: Resolved now (6) Anemia: Appears to be new H&H stable, no signs of bleeding Iron studies done. Reports are Normal. (7) Subclinical hypothyroidism: TSH 5.66 Free T4 0.87 No need for management in the acute setting, follow up outpatient (8) GERD (gastroesophageal reflux disease): Continue PPI (9) Left flank pain: Musculoskeletal in origin Pain is better with Voltaren gel and some stretching. Continue Voltaren gel PRN Plan FENGI: DM2 Code status: full Isolation: none Disposition: home Total Time Total Time Spent Total Time Spent (In Minutes): <30 Discharge Plan Discharge Items Patient Disposition: Home - Self-Care Reason For Visit: ABDOMINAL/FLANK PAIN Discharge Diagnosis: 1. Congestive Heart Failure, Pleural Effusions 2. Uncontrolled, Type 2 Diabetes Mellitus (A1c > 10) 3. Hyperlipidemia 4. Hypertension Activity: Per Instructions section Non-emergency contact: Primary Care Provider and Business Dean Call non-emergency contact if: you have any medication questions, your symptoms worsen, your pain is not controlled and your pain is worsening Follow-up/Referrals: Shelli العراقي MD [Primary Care Provider] - 09/10/24 2:30 pm (Hospital follow up already scheduled for September 10 at 2:30) Danitza Jang PA-C [Physician Configuration Management Administrator] - 09/04/24 10:00 am Diet: Heart Healthy Addtl Attending Provider Instructions: You presented to the hospital for evaluation of abdominal/flank pain, which ultimately was determined to be musculoskeletal in origin and improved with osteopathic manipulation and Voltaren gel. During your inpatient evaluation it was found that there are other conditions underlying that require treatment. Your A1c was found to be > 11, which is diagnostic for Type 2 Diabetes Mellitus, your glucose levels were managed inpatient with insulin, and you will be discharged with Insulin Aspart 3 units per meal/Insulin Glargine 15 units per day (at night). Furthermore, you were found to have elevations in both blood pressure and cholesterol levels. You were started on a statin medication (Atorvastain) which will help control your cholesterol levels. Furthermore, you were found to have evidence of congestive heart failure which has lead to the development of pleural effusions (fluid in the lungs space, outside of the lungs). The extra fluid was managed inpatient with a diuretic medication, but in order to manage the underlying congestive heart failure, Metoprolol, Spironolactone, and Entresto (Sacubitril/Valsartan) were added. A diuretic medications (Furosemide) will be sent to your pharmacy. Please continue to take this medication one time daily for one week until follow up with your PCP. You will need to follow up with your PCP for a BMP to check your kidney and electrolyte function within 1 week of discharge. A Diabetes Summary: Uncontrolled Type 2 Diabetes: - Fundamentally the main problem with diabetes is that "high sugar clogs arteries" The higher you run, and the longer you run high, the more you are knocking off blood vessels that you cannot get back - Generally, anyone with an A1c above 7.0 is in the range of "high sugars clogging arteries" and your most recent A1c was 11 - To translate an A1c into "high sugars clog arteries" for day to day management: any time your sugar is above about 160, there will be some degree of small blood vessel clogging/damage going on - While right now the main problem you are running into with high sugars clogging arteries is the serious/concerning [x], actually is far more common for uncontrolled diabetes to lead to heart attacks and strokes; when high sugars clog the arteries to our heart or brain, killing heart muscle or brain tissue. - T2DM is heavily driven by the simple/starchy/sugary carbohydrates that we eat - While many of your instructions will pertain to dosing of insulin, the most critically important part of improving your sugars is to start to identify simple/starchy/sugary carbohydrates you are eating and minimize those, so that you minimize "how diabetic" you are Insulins: - What we are trying to do with insulins is basically mimic normal physiology. - A normal pancreas will have a constant slow smolder of insulin when somebody is in a fasting state, to move a little bit of sugar floating around in the bloodstream from when they last ate/the little bit of sugar their liver is dumping out into the bloodstream into their muscles. - When we eat, our pancreas makes a surge of insulin proportionate to the carbs that we take in, to get the meal out of our bloodstream and into our muscles fairly quickly - So, when trying to mimic normal physiology, it requires a few different types of insulin Given that the insulin cannot really work differently based on what your body is doingthe insulin "works how it works" and you learn to "think like a pancreas" in terms of dosing the insulin/controlling the sugar/following your sugars - You have 2 different types of insulin: Lantus, and Log (Humalog/NovoLog) - Lantus acts as a "basal" insulin (slow smolder insulin): it covers your fasting metabolism. When you inject it, it slowly kicks in over about 2 hrs, never peaks activity, and slowly fades between hours 1824. Your basal insulin dose is 15 units daily. - Log insulin acts as a "bolus" insulin (fast surging insulin): it covers your meals It kicks in 15-30 minutes after you inject it, reaches a peak about 90 minutes later, and wears off over 3-4 hours. - 'Grading your work' You can grade the dose of your Lantus based on your fasting sugar (a reasonable goal being between [id number]) You can grade the dose of your Log insulin based off of the sugar about 2 hours after you have eaten/injected it (with a reasonable goal being between 820977) - The main part of the work with this will be learning to adjust your log insulin dosing at meals. Given that each meal will be a bit different and the carbohydrates in it, the "trick" in dosing log insulin will be to try to match up how much log insulin you give yourself with how many carbohydrates you eat. - Since the log insulin reaches a peak at about 90 minutes after you take it, and when you eat your sugars are usually reaches a peak about an hour after you are done eating, checking sugar 2 hours after you have eaten/given your self log insulin becomes a great time to "grade your work" with a goal sugar of about 865063 Your bolus insulin dose is 3 units per meal, adjusted up and down based on carbs. Carb Counting - There are 2 main methods by which people can learn to adjust their log insulin dosing"hard carb counting" and "soft carb counting" - "Hard carb counting" involves weighing and measuring everything that you eat, figuring out how many grams of carbohydrates are in it, and for yougiving yourself 1 unit of insulin for every 4 g of carbohydrates you eat. - "Soft carb counting" works more on educated trial and error and learning from your body. After talking to you, this seems to be what will be the most doable at home (as it would be for me to, if I were on insulin) - With this method, we will have you "center" on about [3 units of log insulin at each meal]. At first, while you are learning from your body, basically everything you eat you will give yourself [3 units], check your sugar 2 hours later, and learn from the results. When you see sugars that are still too high, you will look at what you just ate, try to identify the carbohydrates in it, and either the next time: Eat less carbohydrate/sugar, or give yourself more insulin. If you see sugars that are too low, when you eat the same type of food, you will give yourself less insulin. - Generally, a good target to shoot for with this method is seeing sugars 2 hours after you eat between [id number]. (This is a little bit arbitrary, but figuring that we do not want to have you "bottom out" if we target no lower than 100, it should protect you from serious lows, and given that sugar higher than about 160 is where we start to see "high sugars clog arteries", this 302976 range keep you pretty safe overall) - At first, write down what you eat, how much insulin you give yourself, and what your sugar is 2 hours later, this will help you sort out things that "do not make sense" because in my experience about 99.9% of the time the answer and a confusing question about sugar ends up being a mismatch between the insulin taken and the carbohydrates eaten. - It is also critical to check the sugar after you eat. Grading your work "by feel" with mealtime insulin is a little like driving without a map and hoping you just end up in the right destination. - Typically, we expect people on insulin to have about 50% of their total insulin on the day be the basal insulin (Lantus), and about 50% of their total insulin on the day being the bolus insulin (the total log insulin you have given yourself in that day). If you start to see things getting way out of balance, talk with your regular doctors to help figure out how to best adjust things back to a 50-50 (more or less). The problem if things get way out of balance is typically harder to figure out/harder to control sugars, or low sugars that seem to be a "surprise". Pending Studies at Discharge: No Stand-Alone Forms: My [facility], Smoking Cessation Medications and DC Order Prescriptions: New cyanocobalamin (vitamin B-12) 1,000 mcg tablet 1,000 mcg PO DAILY Qty: 30 3RF atorvastatin 40 mg Tablet 80 mg PO HS Qty: 30 0RF spironolactone 25 mg Tablet 25 mg PO QAM Qty: 30 0RF aspirin [Children's Aspirin] 81 mg Tablet,Chewable 81 mg PO DAILY Qty: 60 0RF metoprolol succinate 25 mg Tablet Extended Release 24 Hr 25 mg PO QAM Qty: 30 0RF fluticasone propionate 50 mcg/actuation [place],Suspension 1 spray NA BID Qty: 1 0RF diclofenac sodium [Voltaren Arthritis Pain] 1 % Gel 4 g EXT QID Qty: 100 0RF sacubitril-valsartan [Entresto] 24-26 mg Tablet 1 tab PO BID Qty: 60 0RF insulin glargine [Lantus U-100 Insulin] 100 unit/mL Solution 15 unit subcut .qhs 30 Days Qty: 10 0RF insulin aspart U-100 [Novolog U-100 Insulin aspart] 100 unit/mL Solution 3 unit SC ACHS 30 Days Qty: 10 0RF furosemide 20 mg Tablet 20 mg PO QAM 7 Days Qty: 7 0RF Continued acetaminophen 325 mg Tablet 325 mg PO QID PRN (Reason: Pain) benzonatate 200 mg capsule 200 mg PO Q12H esomeprazole magnesium 40 mg capsule,delayed release(DR/EC) 40 mg PO DAILY Discontinued ibuprofen 200 mg Tablet 200 mg PO Q6H PRN (Reason: Pain) Discharge Orders: Discharge Order- CHF (Routine); Ordered 08/29/24 Ordered By: Sabine Carmen Admission Data Admit Date/Time: 08/25/24 16:49 Attending Provider: Sergo Jackson Admit Provider: Yuniel Williamson Primary Care Provider: Shelli العراقي Other Providers: Sergo Jackson; Joseph Phillips; Danitza Jang Other Interventions: Discharge Summary Assessment (RN) Last Done: 08/29/24 12:30 Supervising Physician Co-Signing Physician Notes I personally examined the patient and verified all guerra points of history and exam, discussed case, and agree with decision making with Dr Frank for home today, seen at same time as cardiology, both of us outlined plans and next steps vitals noted nad heent nc at mmm breathing unlabored no accessory muscles good effort skin no rashes no pallor or icterus L flank pain - exhaled ribs from cough. OMT done a few times inpatient - may need ongoing OMT as outpt. continue voltaren gel. taught stretches chronic cough - ?post nasal drip. already takes flonase daily - increased to bid, gave therapeutic trial to afrin x 3 days to look for improvement (and if so then probably need to escalate chronic PND treatment) - ?possibly improved - ongoiong outpt f/u in this regard Acute HFmrEF - and coronary artery disease -BNP -700. Echo 40-45% - global hypokinesis. Mild LVH, Left atrial dilation, Mild Pul HTN (likely from fluid overload) - continue med management, secondary risk reduction, close follow-up in regards to her CHF and coronary disease Mild Pul HTN - could be due to fluid overload. -denied snoring but considering mild LVH and atrial dilation - consider sleep study as outpatient. Mild increase in troponin likely from demand ischemia superimposed on now known CAD Moderate to large left pleural effusion -likely secondary to fluid overload. -Pulse ox 95% on room air. -can do diagnostic thoracentesis - fortunately stable - strongly suspect fluid is due to CHF - at this point would follow clinically - if rate limiting dyspnea - then thoracentesis; repeat CXR in 4-6wks, if fluid persists can consider thoracentesis then too Hypertension -reports blood pressure being normal at home. Possibly fluctuating BP -continue current meds DM -recent new diagnosis -A1c ordered -11%. - extensive discussion on lifestyle as it interfaces with diabetes, and the critical importance of glycemic control in regards to vascular disease -diet changes, med management Anemia - Hb 1 mth ago 12. Monitor h/h. -Anemia workup - retic count, iron studies, b12, folate level. B12 somewhat lowreplace PO f/u levels in ~3-4 months to determine if IM will be required -Will need to follow-up with PCP about colon cancer screening. Lovenox utilized for DVT proph safe/stable for home Resident Activity Tracking Resident Involvement: Resident Care Provided Care Provided: Adult [facility] Medicine
[2024-08-29 10:24] VITALS: O2SAT 99
[2024-08-29 12:32] VITALS: BP 178/76; PULSE 72
--- NOTE | 2024-08-29 13:19 | XCELERA ---
[id number] \\[id number]
--- NOTE | 2024-08-29 13:25 | Cardiology Progress Note ---
Date of Service August 29, 2024 Assessment & Plan (1) CAD (coronary artery disease): (2) Heart failure with mildly reduced ejection fraction (HFmrEF, 41-49%): (3) Cardiomyopathy: (4) Dyslipidemia: (5) HTN (hypertension): (6) Pericardial effusion: (7) Pulmonary hypertension: (8) Pleural effusion: Plan ASSESSMENT/PLAN: 1. CAD: Interventional cardiology recommended evaluation by CT surgery to consider options. This can be done in the outpatient setting nonurgently. If she is agreeable to be referred, referral can be placed at her upcoming heart failure appointment. She has no angina. Could consider PCI of LAD or PL for angina. Continue antiplatelet therapy, high intensity statin therapy. Risk factor modification. 2. Cardiomyopathy: Etiology uncertain. Could possibly be related to myocarditis given recent URI. As documented CAD but not clearly ischemic in origin given global hypokinesis and predominantly LAD severe CAD. Continue medical therapy. Monitor with surveillance echoes in the outpatient setting. 3. Heart failure with mildly reduced EF: Had edema and has pleural effusions, with mild pulmonary hypertension on echo. Filling pressures were not elevated during right and left heart catheterization on 08/28/24. PA pressure normal on right heart cath on 08/28/2024. Intravenous diuretics discontinued 08/28/24. Start Lasix 20 mg p.o. once daily. Monitor labs in the outpatient setting. Strict I's and O's. Daily weights. Low-sodium diet, less than 2000 mg daily. Avoid NSAIDs. She is now on mineralocorticoid receptor antagonist, ARNI, beta- ilan. Recommend SGLT2 inhibitor and discussed with primary hospitalist service. 4. Pulmonary hypertension: Elevated RVSP on echo but no pulmonary hypertension noted on right heart catheterization on 08/28/2024. 5. Pleural effusion: As per primary hospitalist service. 6. Dyslipidemia: Recommend high intensity statin therapy. 7. Type 2 diabetes: Poorly controlled. New diagnosis per patient. Considering SGLT2 inhibitor for her cardiac issues as above. 8. Flank/abdominal pain: As per primary hospitalist service. Does not appear to be cardiac in nature. Appears to be musculoskeletal in origin. 9. Hypertension: Blood pressure mostly normotensive to mildly hypertensive. Most recent blood pressure more elevated. Medical therapy as above. Therapy can be further titrated at upcoming appointment with heart failure program. SGLT2 inhibitor recommended to begin today. 10. Anemia: Seems new compared to 07/27/2024. Per primary hospitalist service. 11. Pericardial effusion: Her effusion does not appear to be hemodynamically significant. It is small. Stable findings on today's limited echo. May be related to recent URI. 12. Disposition: Can be discharged home from a cardiology perspective. Patient discussed with Dr. Jackson of the primary hospitalist service. Heart failure program. Admission and Anticipated Discharge Date Admission Date: August 25, 2024 Subjective Patient seen this morning. Dr. Jackson of the hospitalist service presented to the bedside during the meeting. She denies chest pain. She still has left flank plain at times. She denies any significant pain from her access sites from cardiac catheterization yesterday. She denies shortness of breath, orthopnea, syncope, near syncope, palpitations, edema, or bleeding. Physical Exam Physical Exam: Gen.: No acute distress. Alert and oriented. HEENT: Anicteric sclera. Neck: No JVD. Cardiac: Regular. Normal S1-S2. No murmurs, rubs, or gallops. Pulmonary: Clear to auscultation bilaterally without wheezes, rales, or rhonchi. Abdomen: Soft, nontender, nondistended, with normoactive bowel sounds. No bruits noted. Extremities: 1+ right radial pulse. 2+ left radial pulse. Radial access sites appear clean, dry, and intact without erythema or discharge. No hematoma. 2+ posterior tibialis pulses bilaterally. No edema or cyanosis. Chest: Left lateral chest tender to palpation. Results & Data Vital Signs (Past 12 Hours) Vital Signs Temp Pulse Pulse Resp BP BP Pulse Ox 08/29/24 12:30 36.4 C L 83 72 18 178/76 H 140/84 99 08/29/24 10:23 36.4 C L 83 18 140/84 99 08/29/24 07:25 36.4 C L 76 18 146/77 H 98 08/29/24 03:08 36.5 C 83 17 149/74 H 93 O2 Del Method 08/29/24 12:30 08/29/24 10:23 Room Air 08/29/24 07:25 Room Air 08/29/24 03:08 Room Air Intake & Output 08/27/24 08/28/24 08/29/24 08/30/24 06:59 06:59 06:59 06:59 Intake Total 1320 / 1320 480 / 480 350 / 350 Output Total 801 / 801 950 / 950 2 / 2 Balance 519 / 519 -470 / -470 348 / 348 Weight 146 lb 9.718 oz 146 lb 9.718 oz 146 lb 6.191 oz 146 lb 6.191 oz Laboratory Results Laboratory Results - last 24 hr 08/28/24 08/28/24 08/28/24 11:35 11:39 15:53 WBC RBC Hgb POC Hgb 10.2 L 9.9 L Hct POC Hct 30 L 29 L MCV MCH MCHC RDW Std Deviation RDW Coeff of Linette Plt Count MPV Immature Gran % (Auto) Neut % (Auto) Lymph % (Auto) [place] % (Auto) Eos % (Auto) Baso % (Auto) Neut # (Auto) Lymph # (Auto) [place] # (Auto) Eos # (Auto) Baso # (Auto) Immature Gran # (Auto) POC pH 7.37 7.37 POC pCO2 50 H 49 H POC pO2 39 L 71 L POC HCO3 29 H 28 H POC Total CO2 31 30 POC Base Excess 4.0 H 3.0 H POC ABG O2 Sat 71.0 L 93.0 POC Sodium 140 141 Sodium POC Potassium 3.6 3.4 Potassium Chloride Carbon Dioxide Anion Gap BUN Creatinine Est Cr Clr Drug Dosing eGFR BUN/Creatinine Ratio Glucose POC Glucose 231 H Calcium Total Bilirubin AST ALT Alkaline Phosphatase Total Protein Albumin Globulin Albumin/Globulin Ratio 08/28/24 08/29/24 08/29/24 20:53 07:33 08:18 WBC 7.63 RBC 3.87 L Hgb 11.2 L POC Hgb Hct 32.9 L POC Hct MCV 85.0 MCH 28.9 MCHC 34.0 RDW Std Deviation 38.2 RDW Coeff of Linette 12.4 Plt Count 277 MPV 10.1 Immature Gran % (Auto) 0.3 Neut % (Auto) 61.0 Lymph % (Auto) 26.5 [place] % (Auto) 8.4 Eos % (Auto) 3.1 Baso % (Auto) 0.7 Neut # (Auto) 4.66 Lymph # (Auto) 2.02 [place] # (Auto) 0.64 H Eos # (Auto) 0.24 Baso # (Auto) 0.05 Immature Gran # (Auto) 0.02 POC pH POC pCO2 POC pO2 POC HCO3 POC Total CO2 POC Base Excess POC ABG O2 Sat POC Sodium Sodium 138 POC Potassium Potassium 4.1 Chloride 104 Carbon Dioxide 28 Anion Gap 6 BUN 35 H Creatinine 1.06 Est Cr Clr Drug Dosing 42.0 eGFR 56.51 BUN/Creatinine Ratio 33.0 H Glucose 235 H POC Glucose 87 159 H Calcium 8.5 L Total Bilirubin 0.3 AST 37 ALT 33 Alkaline Phosphatase 80 Total Protein 6.0 Albumin 3.3 L Globulin 2.7 Albumin/Globulin Ratio 1.2 08/29/24 11:35 WBC RBC Hgb POC Hgb Hct POC Hct MCV MCH MCHC RDW Std Deviation RDW Coeff of Linette Plt Count MPV Immature Gran % (Auto) Neut % (Auto) Lymph % (Auto) [place] % (Auto) Eos % (Auto) Baso % (Auto) Neut # (Auto) Lymph # (Auto) [place] # (Auto) Eos # (Auto) Baso # (Auto) Immature Gran # (Auto) POC pH POC pCO2 POC pO2 POC HCO3 POC Total CO2 POC Base Excess POC ABG O2 Sat POC Sodium Sodium POC Potassium Potassium Chloride Carbon Dioxide Anion Gap BUN Creatinine Est Cr Clr Drug Dosing eGFR BUN/Creatinine Ratio Glucose POC Glucose 180 H Calcium Total Bilirubin AST ALT Alkaline Phosphatase Total Protein Albumin Globulin Albumin/Globulin Ratio Diagnostic Findings Telemetry personally reviewed: Sinus rhythm. No arrhythmia. Labs from 08/29/2024 demonstrated: Stable renal function but mildly azotemic, normal potassium, stable mild anemia. Medications Administered Current Inpatient Medications Acetaminophen (Acetaminophen 325 Mg Tab) 650 mg PO Q4H PRN PRN Reason: pain/fever Stop: 09/24/24 21:11 Last Admin: 08/29/24 11:31 Dose: 650 mg Al Hydrox/Mg Hydrox/Simethicone (Aluminum/Magnesium Susp 30 Ml Udc) 30 ml PO Q6H PRN PRN Reason: Dyspepsia Stop: 09/24/24 21:11 Aspirin (Aspirin 81 Mg Chew) 81 mg PO DAILY TANYA Stop: 09/26/24 08:59 Last Admin: 08/29/24 08:08 Dose: 81 mg Atorvastatin Calcium (Atorvastatin 40 Mg Tab) 80 mg PO HS TANYA Stop: 09/27/24 20:59 Last Admin: 08/28/24 21:28 Dose: 80 mg Diclofenac Sodium (Diclofenac Sod 1% Gel 100 Gm Tube) 4 gm EXT QID TANYA; Protocol Stop: 09/26/24 16:59 Last Admin: 08/29/24 08:08 Dose: 4 gm Enoxaparin Sodium (Enoxaparin Inj 40 Mg/0.4 Ml Syr) 40 mg SQ Q24H [facility] Stop: 09/24/24 21:29 Last Admin: 08/28/24 21:25 Dose: 40 mg Fluticasone Propionate (Fluticasone Propionate Na Spr 16 Gm Btl) 1 sprays NA BID [facility] Stop: 09/26/24 20:59 Last Admin: 08/29/24 08:09 Dose: 1 sprays Furosemide (Furosemide 20 Mg Tab) 20 mg PO QAM [facility] Stop: 09/28/24 08:59 Last Admin: 08/29/24 08:09 Dose: 20 mg Insulin Aspart (Insulin Aspart Per Unit Charge) 0 units SC ACHS [facility] Stop: 09/24/24 22:44 Last Admin: 08/29/24 12:04 Dose: 3 units Insulin Glargine (Lantus Per Unit Charge) 20 units SQ DAILY [facility] Stop: 09/25/24 13:14 Last Admin: 08/29/24 08:12 Dose: 20 units Magnesium Hydroxide (Magnesium Hydroxide Susp 30 Ml Udc) 30 ml PO Q6H PRN PRN Reason: Constipation Stop: 09/24/24 21:11 Melatonin (Melatonin 3 Mg Tab) 3 mg PO HS PRN PRN Reason: Insomnia Stop: 09/24/24 21:11 Metoprolol Succinate (Metoprolol Succ 25mg Ext Rel Tab) 25 mg PO [facility] Stop: 09/26/24 08:59 Last Admin: 08/29/24 08:09 Dose: 25 mg Metoprolol Tartrate (Metoprolol Tartrate 1 Mg/Ml Vial) 5 mg IV Q5M PRN PRN Reason: Blood Pressure systolic >200 Stop: 09/24/24 21:11 Miscellaneous Information (Pharmacy Glycemic Mgmt Consult) 1 each N/A UD PRN; Protocol PRN Reason: Consult Stop: 09/24/24 22:43 Ondansetron HCl (Ondansetron Inj 2 Mg/Ml 2 Ml Vial) 4 mg IV Q6H PRN PRN Reason: Nausea Stop: 09/24/24 21:11 Last Admin: 08/28/24 21:28 Dose: 4 mg Oxymetazoline HCl (Oxymetazoline 0.05% 30 Ml Btl) 1 sprays NA BID [facility] Stop: 09/26/24 20:59 Last Admin: 08/29/24 08:09 Dose: 1 sprays Pantoprazole Sodium (Pantoprazole 40 Mg Tab) 40 mg PO DAILY [facility] Stop: 09/25/24 08:59 Last Admin: 08/29/24 08:10 Dose: 40 mg Polyethylene Glycol (Polyethylene (Miralax) 17 Gm Pack) 17 gm PO DAILY PRN PRN Reason: Constipation Stop: 09/24/24 21:11 Sacubitril/Valsartan (Valsartan/Sacubitril 26/24mg Tab) 1 tab PO BID [facility] Stop: 09/25/24 20:59 Last Admin: 08/29/24 08:10 Dose: 1 tab Spironolactone (Spironolactone 25 Mg Tab) 25 mg PO QAM [facility] Stop: 09/26/24 08:59 Last Admin: 08/29/24 08:10 Dose: 25 mg PG Care Time/CCT Total # of Minutes Spent Total Time Spent with Patient: Total time spent is greater than 50% in coordination of care (as documented) at patient's floor/unit and/or counseling patient: Coding Level of Care Code 94394 SUB INP/OBS CARE 3/50MIN Diagnoses CAD (coronary artery disease) I25.10 Heart failure with mildly reduced ejection fraction (HFmrEF, 41-49%) I50.20 Cardiomyopathy I42.9 Dyslipidemia E78.5 HTN (hypertension) I10 Pericardial effusion I31.39 Pulmonary hypertension I27.20 Pleural effusion J90
--- NOTE | 2024-08-29 13:39 | Billing Data ---
Date of Service August 29, 2024 Coding Level of Care Code 55562 IN/OBS DISCH 30 MIN/LESS
== END 2024-08-29 13:00 | disposition home or self-care (01) | DRG 286 ==
LOC: SUATTDRO → ED 11:21 → SUATTDRO 16:49 → 2N 16:49 → INTOOBSV 16:49 → 2N 19:43 → 2S 08-28 13:53
DX: E78.5 Hyperlipidemia, unspecified; I42.9 Cardiomyopathy, unspecified; R09.82 Postnasal drip; D64.9 Anemia, unspecified; Z79.84 Long term (current) use of oral hypoglycemic drugs; I50.21 Acute systolic (congestive) heart failure; I31.39 Other pericardial effusion (noninflammatory); R10.32 Left lower quadrant pain; Z88.1 Allergy status to other antibiotic agents; I11.0 Hypertensive heart disease with heart failure; F43.21 Adjustment disorder with depressed mood; K21.9 Gastro-esophageal reflux disease without esophagitis; E87.6 Hypokalemia; I24.89 Other forms of acute ischemic heart disease; I25.10 Atherosclerotic heart disease of native coronary artery without angina pectoris; Z79.899 Other long term (current) drug therapy; E03.8 Other specified hypothyroidism; E11.65 Type 2 diabetes mellitus with hyperglycemia; I27.20 Pulmonary hypertension, unspecified

== ENCOUNTER 2025-04-06 21:35 | Inpatient (IN) ==
[2025-04-06] MEDS: SODIUM CHLORIDE 0.9% 500 ML IV STA (22:01)
[2025-04-06 22:09] LABS: Hematocrit (blood only) 26.2 % (37.0-47.0); Hemoglobin 8.8 g/dl (12.0-16.0); Immature Granulocytes # (auto) 0.08 K/uL (0.01-0.20); Immature Granulocytes % (auto) 0.5 %; Mean Corpuscular Hemoglobin 29.9 pg (25.0-34.0); Mean Corpuscular Volume 89.1 fL (80.0-100.0); Platelet Count 367 K/uL (130-400); RDW Standard Deviation 42.2 fL (36.4-46.3); Red Blood Count 2.94 M/uL (4.20-5.40); White Blood Count 16.70 K/ul (4.8-10.8)
[2025-04-06] MEDS: METOPROLOL TARTRATE 1 MG/ML VIAL IV STA (22:20)
[2025-04-06 22:29] LABS: Alanine Aminotransferase 38 U/L (7-52); Albumin Globulin Ratio 1.0 (0.9-2); Alkaline Phosphatase 245 U/L (34-104); Anion Gap 10 (3-11); Bilirubin,Total 1.0 mg/dl (0.2-1.0); Blood Urea Nitrogen 21 mg/dl (6-23); Calcium 8.9 mg/dl (8.6-10.3); Carbon Dioxide 27 mmol/L (21-32); Chloride 101 mmol/L (98-107); Creatinine Clr Calc Pharmacy 36.9 ml/min; Globulin 2.9 gm/dl (2.5-4.0); Glucose 250 mg/dl (70-99(Fasting)); Lipase 59 U/L (11-82); Magnesium 1.5 mg/dl (1.7-2.4); Sodium 138 mmol/L (136-145); Total Protein 5.9 gm/dl (6.0-8.3)
[2025-04-06 22:34] LABS: INR 1.0 (0.9-1.1); Prothrombin Time 10.8 Seconds (9.0-12.0)
[2025-04-06 22:41] LABS: Thyroid Stimulating Hormone 11.367 uIu/ml (0.300-4.500)
[2025-04-06] MEDS ORDERED: 0.2 MICRON FILTER SET 1 EACH IV STA (22:41)
[2025-04-06] MEDS ORDERED: AMIODARONE IV BOLUS & DRIP IV STA (22:41)
[2025-04-06] MEDS ORDERED: STAT IV Infusion **Titration per Protocol STA (22:41)
--- NOTE | 2025-04-06 22:45 | Emergency Department Note ---
Impression & Plan Atrial fibrillation with rapid ventricular response, Hypotension, Cardiomyopathy, CAD (coronary artery disease), Hypomagnesemia, Status post coronary artery bypass graft ED Provider Note NAME: JOSEPH BELL AGE: 69 SEX: F : 1955 ARRIVES VIA: Ambulance INFORMANT: Patient ED PROVIDER(S): Nimesh Kay MD CHIEF COMPLAINT: Atrial fibrillation with RVR, hypotension PLAN: Disposition: Admit MEDICAL DECISION MAKING: The patient is a 69-year-old woman with a past medical history of CAD, cardiomyopathy the, pulmonary hypertension who presents to the emergency department via EMS from her acute rehab facility at [facility] in the setting of recent discharge from [facility] where she had a CABG on 03/26 and was transferred to rehab on Tuesday. The patient reports she has been feeling ill for the past several days and developed nausea and vomiting today. She reports a had been treating her with medications to "take off fluid". She has been urinating more. She has any fevers. She has had mild cough with clear sputum. On evaluation the patient is fatigued appearing but no acute distress, afebrile with heart in the 160s in atrial fibrillation and low blood pressure in the 80s-90s/50s-60s with MAP 60 and greater. She exhibits dry mucous membranes despite bilateral lower extremity edema in the setting of her CABG. Initial EKG demonstrated atrial fibrillation with RVR without overt acute ischemia. Chest x-ray with bilateral pleural effusions and airspace opacities suspicious for pulmonary edema. Limited bedside cardiac ultrasound demonstrated no overt clinically significant pericardial effusion. WBC 16.7 K with neutrophilia left shift. H/H 8.8/26.2 decreased from September without more recent for comparison. Platelets within normal limits. Chemistry without metabolic acidosis. Creatinine 1.2 increased from January but similar to prior values in the past. Magnesium 1.5 and electrolytes otherwise without significant abnormality. Initial high-sensitivity troponin 125, nonspecific and in the setting of the patient's RVR and recent CABG. TSH 11 with free T4 within normal limits. UA suspicious for infection with 4+ bacteria and WBCs albeit with epithelial cells present. Empiric treatment treated with IV ceftriaxone. Given the patient's RVR with hypotension trial of 5 mg of Lopressor initiated but without significant improvement in rate or pressure. Subsequently patient was treated with amiodarone bolus and drip for better rate control in the setting of her hypotension. Shortly after receiving the 150 mg bolus the patient did spontaneously cardioverted to sinus rhythm. Blood pressure improved and remained stable. Case was discussed with TAVON Coyle hospitalist, who will evaluate the patient for admission. Further management per admitting team. Triage Nursing notes reviewed and agree them. Prior/external medical records reviewed Vital Signs: reviewed Differential diagnosis: Infection, dehydration, metabolic abnormality, hypo/hyperglycemia, electrolyte disturbance, anemia, hypoxia, cardiac sources, intracerebral event, toxicologic, neurologic, as well as other pathologies. ER treatment provided: See below. Diagnostics interpreted by me: ECG: Atrial fibrillation with RVR, no ectopy, no overt ST elevation or depression. Cardiac Monitoring: An order for continuous cardiac monitoring was placed and demonstrated atrial fibrillation with RVR, no ectopy. Laboratory studies: See below Imaging studies: See below Consultation(s): TAVON Coyle hospitalist. HPI: Per MDM. ROS: See above HPI for pertinent positives & negatives. A total of 10 systems reviewed and were otherwise negative. VITALS:See Below PHYSICAL EXAMINATION: GENERAL: Awake, alert, fatigued-appearing, in no distress HENT: Normocephalic, atraumatic. Oropharynx with dry mucous membranes and otherwise unremarkable. EYES: Normal conjunctiva. Sclera non-icteric. NECK: Supple. No nuchal rigidity. FROM. No JVD. RESPIRATORY: Clear to auscultation. CARDIAC: Tachycardic rate, irregular rhythm. Extremities warm and well perfused. Pulses equal. ABDOMEN: Soft, non-distended. No tenderness to palpation. No rebound or guarding. No masses. MUSCULOSKELETAL: Chest with sternal incision site with areas of light redness without overt erythema. The back is symmetrical on inspection without obvious abnormality. There is no CVA tenderness to palpation. No joint edema. LOWER EXTREMITIES: Calves are equal size bilaterally and non-tender. 1+ bilateral lower extremity edema. No discoloration. NEURO: Normal sensorium. No sensory or motor deficits noted. SKIN: No rash or jaundice noted. ED COURSE: Critical Care: I have personally spent greater than 35minutes of critical care time in the direct management of this patient. This includes bedside care, interpretation of diagnostic studies, and testing, discussion with consultants, patient, and family members, and other required patient management activities. This 35 minutes is in excess of all separately billable procedures. Nimesh Kay MD Past Med/Surg History Problem List (Updated 04/07/25 @ 06:08 by Nimesh Kay MD) Status post coronary artery bypass graft (Acute) Hypomagnesemia (Acute) UTI (urinary tract infection) Hypotension (Acute) Atrial fibrillation with rapid ventricular response (Acute) CAD (coronary artery disease) (Acute) Pulmonary hypertension Pericardial effusion Dyslipidemia Cardiomyopathy (Acute) Heart failure with mildly reduced ejection fraction (HFmrEF, 41-49%) GERD (gastroesophageal reflux disease) Subclinical hypothyroidism HTN (hypertension) T2DM (type 2 diabetes mellitus) Pleural effusion (Acute) CHF (congestive heart failure) (Acute) Upper respiratory infection (Acute) Loose body in knee (Acute) Knee pain, right (Acute) Medical History Left flank pain Anemia Hypokalemia Arthritis Surgical History Hx of left cataract extraction Hx of wisdom tooth extraction Hx of colonoscopy "Unsure when" Social History Smoking Status: Never smoker Second Hand Exposure: No; Do You Dip or Chew Tobacco: No; Hx Alcohol Use: No Hx Substance Use: No Preferred Language: Icelandic Communication Ability: Effective 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 Beliefs That Will Affect Care: None Current Living Situation: Alone Current Living Situation Comment: lives home alone Other Information That Helps Us Care for You: No Feels Safe at Home: Yes Safety Concerns: Feels Safe At This Time Assistive Devices: Glasses Allergies Allergies Allergy/AdvReac Type Severity Reaction Status Date / Time azithromycin Allergy Mild Unknown Verified 12/25/24 08:56 garlic Allergy Diarrhea Verified 12/25/24 08:56 morphine Allergy Rash Verified 04/06/25 22:01 onion Allergy Diarrhea Verified 12/25/24 08:56 Home Meds Home Medications Medication Instructions Recorded Confirmed acetaminophen 325 mg tablet 325 mg PO QID PRN Pain 08/25/24 04/06/25 benzonatate 200 mg capsule 200 mg PO Q12H 08/25/24 04/06/25 esomeprazole magnesium 40 mg 40 mg PO DAILY 08/25/24 04/06/25 capsule,delayed release metformin 500 mg tablet 500 mg PO BID 09/25/24 04/06/25 blood sugar diagnostic (OneTouch 11/13/24 01/14/25 Verio test strips) fluticasone propionate 50 1 spray NA PRN Nasal Congestion 01/14/25 mcg/actuation nasal spray,suspension insulin glargine 100 unit/mL (3 10 unit subcut PM 04/06/25 04/06/25 mL) subcutaneous pen (Lantus Solostar U-100 Insulin) Previous Rx's Medication Instructions Recorded aspirin 81 mg chewable tablet 81 mg PO DAILY #60 tabs 08/28/24 (Children's Aspirin) cyanocobalamin (vitamin B-12) 1,000 mcg PO DAILY #30 tabs 08/28/24 1,000 mcg tablet atorvastatin 80 mg tablet 80 mg PO HS #90 tabs 09/25/24 furosemide 20 mg tablet 20 mg PO DAILY PRN 2-3 lb weight 09/25/24 gain, edema, shortness of breath #30 tabs spironolactone 25 mg tablet 25 mg PO QAM #90 tabs 09/25/24 pen needle, diabetic 32 gauge x #100 ea 11/13/24" (BD Ultra-Fine Eda Pen Needle) metoprolol succinate 200 mg 200 mg PO QAM #90 tabs 12/12/24 tablet,extended release 24 hr sacubitril 97 mg-valsartan 103 mg 1 tab PO BID #180 tabs 12/25/24 tablet (Entresto) blood-glucose meter (OneTouch #2 ea 01/29/25 Verio Flex Meter) semaglutide 0.25 mg or 0.5 mg (2 0.5 mg (0.736 mL) subcut Q7D #3 mL 01/29/25 mg/3 mL) subcutaneous pen injector (Ozempic) Results & Data (ED) Vital Signs Vital Signs - 24 hr 04/06/25 21:39 04/06/25 21:45 04/06/25 21:54 Temperature 36.5 C Temperature Source Oral Pulse Rate 167 H 168 H Pulse Rate [Apical] 167 H Pulse Rhythm [Apical] Respiratory Rate 22 18 Respiratory Effort / Characteristics Respiratory Depth Respiratory Pattern Blood Pressure 93/62 L Blood Pressure [Right Arm] 86/51 L Blood Pressure Mean 72 Blood Pressure Mean [Right Arm] 62 Blood Pressure Position Semi-fowlers Blood Pressure Position [Right Arm] Pulse Oximetry 97 97 Oxygen Delivery Method Room Air Room Air Sepsis Recent Fever Within 48 Hours No Sepsis New/Unexplained Change in Mental Status No Sepsis Action Taken by Nursing No Action Required 04/06/25 21:58 04/06/25 22:00 04/06/25 22:11 Temperature Temperature Source Pulse Rate Pulse Rate [Apical] 169 H 159 H Pulse Rhythm [Apical] Respiratory Rate 18 20 Respiratory Effort / Characteristics Respiratory Depth Respiratory Pattern Blood Pressure Blood Pressure [Right Arm] 89/47 L 94/58 L Blood Pressure Mean Blood Pressure Mean [Right Arm] 61 70 Blood Pressure Position Blood Pressure Position [Right Arm] Pulse Oximetry 98 97 96 Oxygen Delivery Method Room Air Room Air Sepsis Recent Fever Within 48 Hours Sepsis New/Unexplained Change in Mental Status Sepsis Action Taken by Nursing 04/06/25 22:20 04/06/25 22:36 04/06/25 22:36 Temperature Temperature Source Pulse Rate 173 H 134 H Pulse Rate [Apical] 139 H Pulse Rhythm [Apical] Respiratory Rate 22 Respiratory Effort / Characteristics Respiratory Depth Respiratory Pattern Blood Pressure 92/54 L 69/55 L Blood Pressure [Right Arm] 75/48 L Blood Pressure Mean Blood Pressure Mean [Right Arm] 57 Blood Pressure Position Blood Pressure Position [Right Arm] Pulse Oximetry 95 Oxygen Delivery Method Room Air Sepsis Recent Fever Within 48 Hours Sepsis New/Unexplained Change in Mental Status Sepsis Action Taken by Nursing 04/06/25 22:40 04/06/25 22:55 04/06/25 23:05 Temperature Temperature Source Pulse Rate Pulse Rate [Apical] 150 H 146 H 129 H Pulse Rhythm [Apical] Irregular Respiratory Rate 22 21 18 Respiratory Effort / Characteristics Non-Labored Spontaneous Non-Labored Spontaneous Respiratory Depth Normal Normal Respiratory Pattern Regular Blood Pressure Blood Pressure [Right Arm] 95/52 L 89/73 L 96/59 L Blood Pressure Mean Blood Pressure Mean [Right Arm] 66 78 71 Blood Pressure Position Blood Pressure Position [Right Arm] Pulse Oximetry 94 93 92 Oxygen Delivery Method Room Air Room Air Room Air Sepsis Recent Fever Within 48 Hours Sepsis New/Unexplained Change in Mental Status Sepsis Action Taken by Nursing 04/06/25 23:05 04/06/25 23:08 04/06/25 23:12 Temperature Temperature Source Pulse Rate 69 Pulse Rate [Apical] 123 H 70 Pulse Rhythm [Apical] Irregular Respiratory Rate 20 18 Respiratory Effort / Characteristics Non-Labored Spontaneous Non-Labored Spontaneous Respiratory Depth Normal Normal Respiratory Pattern Regular Blood Pressure Blood Pressure [Right Arm] 96/59 L 93/51 L Blood Pressure Mean Blood Pressure Mean [Right Arm] 71 65 Blood Pressure Position Blood Pressure Position [Right Arm] Semi-fowlers Pulse Oximetry 92 92 Oxygen Delivery Method Room Air Room Air Sepsis Recent Fever Within 48 Hours Sepsis New/Unexplained Change in Mental Status Sepsis Action Taken by Nursing 04/06/25 23:30 04/07/25 00:00 Temperature Temperature Source Pulse Rate Pulse Rate [Apical] 74 76 Pulse Rhythm [Apical] Regular Regular Respiratory Rate 20 20 Respiratory Effort / Characteristics Non-Labored Spontaneous Non-Labored Spontaneous Respiratory Depth Normal Normal Respiratory Pattern Regular Regular Blood Pressure Blood Pressure [Right Arm] 99/48 L 100/54 L Blood Pressure Mean Blood Pressure Mean [Right Arm] 65 69 Blood Pressure Position Blood Pressure Position [Right Arm] Semi-fowlers Semi-fowlers Pulse Oximetry 95 95 Oxygen Delivery Method Room Air Room Air Sepsis Recent Fever Within 48 Hours Sepsis New/Unexplained Change in Mental Status Sepsis Action Taken by Nursing Laboratory Data Attestation: I reviewed the patient's lab results. 04/06/25 21:50 04/06/25 22:41 Lab Results 04/06/25 04/06/25 04/06/25 Range/Units 21:50 21:55 22:26 WBC 16.70 H (4.8-10.8) K/ul RBC 2.94 L (4.20-5.40) M/uL Hgb 8.8 L (12.0-16.0) g/dl POC Hgb 8.8 L (12.0-16.0) g/dl Hct 26.2 L (37.0-47.0) % POC Hct 26 L (37-47) % MCV 89.1 (80.0-100.0) fL MCH 29.9 (25.0-34.0) pg MCHC 33.6 (32.0-36.0) g/dL RDW Std Deviation 42.2 (36.4-46.3) fL RDW Coeff of Linette 13.2 (11.5-14.5) % Plt Count 367 (130-400) K/uL MPV 9.1 L (9.4-12.4) fL Immature Gran % (Auto) 0.5 % Neut % (Auto) 86.8 % Lymph % (Auto) 7.6 % [place] % (Auto) 4.1 % Eos % (Auto) 0.7 % Baso % (Auto) 0.3 % Neut # (Auto) 14.50 H (1.40-6.50) K/uL Lymph # (Auto) 1.27 (1.20-3.40) K/uL [place] # (Auto) 0.69 H (0.11-0.59) K/uL Eos # (Auto) 0.11 (0.00-0.50) K/uL Baso # (Auto) 0.05 (0.00-0.20) K/uL Immature Gran # (Auto) 0.08 (0.01-0.20) K/uL PT 10.8 (9.0-12.0) Seconds INR 1.0 (0.9-1.1) POC Sodium 139 (135-144) mmol/L Sodium 138 (136-145) mmol/L POC Potassium 4.5 (3.3-5.0) mmol/L Potassium TNP POC Chloride 100 L (101-112) mmol/L Chloride 101 (98-107) mmol/L Carbon Dioxide 27 (21-32) mmol/L POC Total CO2 26 (24-31) mmol/L Anion Gap 10 (3-11) POC Anion Gap 19.0 (16-25) mmol/L POC BUN 20 H (7-18) mg/dl BUN 21 (6-23) mg/dl Creatinine 1.23 H (0.6-1.2) mg/dl POC Creatinine 1.5 H (0.6-1.3) mg/dl Est Cr Clr Drug Dosing 36.9 ml/min eGFR 47.27 BUN/Creatinine Ratio 17.1 (10-20) Glucose 250 H (70-99(Fasting)) mg/dl POC Glucose (other) 239 H (70-99) mg/dl Calcium 8.9 (8.6-10.3) mg/dl POC Ioniz Calcium Bridgett 1.12 (1.12-1.32) mmol/l Phosphorus 4.0 (2.5-4.9) mg/dl Magnesium 1.5 L (1.7-2.4) mg/dl Total Bilirubin 1.0 (0.2-1.0) mg/dl AST TNP ALT 38 (7-52) U/L Alkaline Phosphatase 245 H (34-104) U/L Troponin I High Sens 125.8 H* (0-14) pg/ml Total Protein 5.9 L (6.0-8.3) gm/dl Albumin 3.0 L (3.4-5.0) gm/dl Globulin 2.9 (2.5-4.0) gm/dl Albumin/Globulin Ratio 1.0 (0.9-2) Lipase 59 (11-82) U/L TSH 11.367 H (0.300-4.500) uIu/ml Free T4 1.16 (0.61-1.60) ng/dl Urine Color Dark Yellow Urine Appearance Turbid A (Clear) Urine pH 5.0 (4.5-7.5) Ur Specific Emmett 1.019 (1.000-1.030) Urine Protein 3+ H (Negative) Urine Glucose (UA) Negative (Negative) Urine Ketones Trace H (Negative) Urine Blood 3+ H (Negative) Urine Nitrite Negative (Negative) Urine Bilirubin 1+ H (Negative) Urine Urobilinogen Negative (Negative) Ur Leukocyte Esterase 3+ H (Negative) Urine WBC (Auto) >50 H (0-5) /hpf Urine RBC (Auto) >20 H (0-2) /hpf U Hyaline Cast (Auto) >20 H (0-2) /lpf U Epithel Cells (Auto) 6-10 H (0-2) /hpf Urine Bacteria (Auto) 4+ H (None Seen) Urine Comment 04/06/25 Range/Units 22:41 WBC (4.8-10.8) K/ul RBC (4.20-5.40) M/uL Hgb (12.0-16.0) g/dl POC Hgb (12.0-16.0) g/dl Hct (37.0-47.0) % POC Hct (37-47) % MCV (80.0-100.0) fL MCH (25.0-34.0) pg MCHC (32.0-36.0) g/dL RDW Std Deviation (36.4-46.3) fL RDW Coeff of Linette (11.5-14.5) % Plt Count (130-400) K/uL MPV (9.4-12.4) fL Immature Gran % (Auto) % Neut % (Auto) % Lymph % (Auto) % [place] % (Auto) % Eos % (Auto) % Baso % (Auto) % Neut # (Auto) (1.40-6.50) K/uL Lymph # (Auto) (1.20-3.40) K/uL [place] # (Auto) (0.11-0.59) K/uL Eos # (Auto) (0.00-0.50) K/uL Baso # (Auto) (0.00-0.20) K/uL Immature Gran # (Auto) (0.01-0.20) K/uL PT (9.0-12.0) Seconds INR (0.9-1.1) POC Sodium (135-144) mmol/L Sodium (136-145) mmol/L POC Potassium (3.3-5.0) mmol/L Potassium 4.5 POC Chloride (101-112) mmol/L Chloride (98-107) mmol/L Carbon Dioxide (21-32) mmol/L POC Total CO2 (24-31) mmol/L Anion Gap (3-11) POC Anion Gap (16-25) mmol/L POC BUN (7-18) mg/dl BUN (6-23) mg/dl Creatinine (0.6-1.2) mg/dl POC Creatinine (0.6-1.3) mg/dl Est Cr Clr Drug Dosing ml/min eGFR BUN/Creatinine Ratio (10-20) Glucose (70-99(Fasting)) mg/dl POC Glucose (other) (70-99) mg/dl Calcium (8.6-10.3) mg/dl POC Ioniz Calcium Bridgett (1.12-1.32) mmol/l Phosphorus (2.5-4.9) mg/dl Magnesium (1.7-2.4) mg/dl Total Bilirubin (0.2-1.0) mg/dl AST 19 ALT (7-52) U/L Alkaline Phosphatase (34-104) U/L Troponin I High Sens 173.0 H* D (0-14) pg/ml Total Protein (6.0-8.3) gm/dl Albumin (3.4-5.0) gm/dl Globulin (2.5-4.0) gm/dl Albumin/Globulin Ratio (0.9-2) Lipase (11-82) U/L TSH (0.300-4.500) uIu/ml Free T4 (0.61-1.60) ng/dl Urine Color Urine Appearance (Clear) Urine pH (4.5-7.5) Ur Specific Emmett (1.000-1.030) Urine Protein (Negative) Urine Glucose (UA) (Negative) Urine Ketones (Negative) Urine Blood (Negative) Urine Nitrite (Negative) Urine Bilirubin (Negative) Urine Urobilinogen (Negative) Ur Leukocyte Esterase (Negative) Urine WBC (Auto) (0-5) /hpf Urine RBC (Auto) (0-2) /hpf U Hyaline Cast (Auto) (0-2) /lpf U Epithel Cells (Auto) (0-2) /hpf Urine Bacteria (Auto) (None Seen) Urine Comment Administered Medications Benzonatate (Benzonatate 100 Mg Capsule) 200 mg PO Q12H PRN PRN Reason: cough Stop: 05/07/25 01:48 Last Admin: 04/07/25 02:11 Dose: 200 mg Documented By: DM Insulin Aspart (Insulin Aspart Per Unit Charge) 0 units SC ACHS TANYA Stop: 05/07/25 01:59 Last Admin: 04/07/25 02:21 Dose: 4 units Documented By: DM Co-signed By: BRITANY Discontinued Medications Acetaminophen (Acetaminophen 325 Mg Tab) 325 mg PO QID PRN PRN Reason: Pain Stop: 05/07/25 01:48 Last Admin: 04/07/25 02:11 Dose: 325 mg Documented By: EMILIA Sodium Chloride (Nss) 500 mls @ 999 mls/hr IV .Q31M STA Stop: 04/06/25 22:14 Last Infusion: 04/06/25 22:36 Dose: Infused Documented By: Admin: 04/06/25 22:01 Dose: 999 mls/hr Documented By: HERIBERTO Amiodarone HCl/Dextrose (Nexterone / D5w) 150 mg in 100 mls @ 600 mls/hr IV NOW STA Stop: 04/06/25 22:50 Last Infusion: 04/06/25 23:04 Dose: Infused Documented By: SKOvidio Co-signed By: DARIEN Admin: 04/06/25 22:51 Dose: 600 mls/hr Documented By: HERIBERTO Co-signed By: SHERIDAN Amiodarone HCl/Dextrose (Nexterone / D5w) 360 mg in 200 mls @ 33.333 mls/hr IV ONE ONE Stop: 04/07/25 04:50 Last Infusion: 04/07/25 05:05 Dose: Infused Documented By: EMILIA Co-signed By: AMANDEEP Admin: 04/06/25 23:04 Dose: 1 mg/min, 33.3 mls/hr Documented By: SKS Co-signed By: DARIEN Sodium Chloride (Nss) 500 mls @ 999 mls/hr IV .Q31M ONE Stop: 04/06/25 23:13 Last Infusion: 04/06/25 23:28 Dose: Infused Documented By: AMANDEEP(2) Admin: 04/06/25 22:57 Dose: 999 mls/hr Documented By: HERIBERTO Ceftriaxone Sodium (Rocephin) 2,000 mg in 50 mls @ 100 mls/hr IV NOW STA Stop: 04/07/25 00:19 Last Infusion: 04/07/25 00:50 Dose: Infused Documented By: AMANDEEP(2) Admin: 04/07/25 00:20 Dose: 100 mls/hr Documented By: AMANDEEP(2) Magnesium Sulfate/Dextrose (Magnesium Sulfate / D5w) 1 gm in 100 mls @ 50 mls/hr IV Q2H TANYA Stop: 04/07/25 05:48 Last Admin: 04/07/25 04:11 Dose: 50 mls/hr Documented By: Infusion: 04/07/25 04:11 Dose: Infused Documented By: Admin: 04/07/25 02:11 Dose: 50 mls/hr Documented By: EMILIA Metoprolol Tartrate (Metoprolol Tartrate 1 Mg/Ml Vial) 5 mg IV NOW STA Stop: 04/06/25 22:18 Last Admin: 04/06/25 22:20 Dose: 5 mg Documented By: HERIBERTO Tramadol HCl (Tramadol Hcl 50 Mg Tablet) 25 mg PO NOW STA Stop: 04/07/25 05:06 Last Admin: 04/07/25 05:13 Dose: 25 mg Documented By: EMILIA Imaging Data Radiologist's Impression: Chest X-Ray 04/06/25 21:44 Exam(s): XR CXR 1 VIEW EXAM: XR Chest, 1 View CLINICAL HISTORY: Chest Pain, nonspecific. TECHNIQUE: Frontal view of the chest. COMPARISON: Chest radiograph 11/13/2024 FINDINGS: Lungs: Bilateral airspace opacities are present. Pleural space: Interval development of moderate left and small right pleural effusions. No pneumothorax. Heart: Cardiomegaly. Mediastinum: Unremarkable. Normal mediastinal contour. Bones/joints: There are degenerative changes of the spine. No acute fracture. IMPRESSION: 1. Interval development of moderate left and small right pleural effusions. 2. Bilateral airspace opacities may represent pulmonary edema and/or atypical infection. 3. Cardiomegaly. Electronically signed by: Yasmin Ga MD 04/07/25 00:17 AM Discharge Plan Visit Data Chief Complaint: Tachycardia Stated Complaint: Rapid Afib ED Provider: Nimesh Kay Discharge Problem: Atrial fibrillation with rapid ventricular response, Hypotension, Cardiomyopathy, CAD (coronary artery disease), Hypomagnesemia, Status post coronary artery bypass graft Patient Disposition: Admitted As Inpatient Condition: Serious Discharge Instructions Interventions: ED Discharge Assessment Last Done: 04/07/25 01:23 Discharge Problem: Hypotension Qualifiers: Hypotension type: unspecified hypotension type Qualified Code(s): I95.9 - Hypotension, unspecified Cardiomyopathy Qualifiers: Cardiomyopathy type: unspecified Qualified Code(s): I42.9 - Cardiomyopathy, unspecified CAD (coronary artery disease) Qualifiers: Coronary Disease-Associated Artery/Lesion type: unspecified vessel or lesion type [place] vs. transplanted heart: [place] heart Associated angina: unspecified whether angina present Qualified Code(s): I25.10 - Atherosclerotic heart disease of [place] coronary artery without angina pectoris
[2025-04-06] MEDS: AMIODARONE / D5W 150 MG/100 ML BAG IV STA (22:51)
[2025-04-06] MEDS: SODIUM CHLORIDE 0.9% 500 ML IV ONE (22:57)
[2025-04-06] MEDS: AMIODARONE / D5W 360 MG/200 ML BAG IV ONE (23:04)
[2025-04-06 23:06] LABS: Appearance Urine Turbid (Clear); Bacteria Urine Automated 4+ (None Seen); Cast Urine Automated >20 /lpf (0-2); Glucose Urine UA Negative (Negative); RBC Urine Automated >20 /hpf (0-2); WBC Urine Automated >50 /hpf (0-5)
[2025-04-06 23:21] LABS: Potassium 4.5 mmol/L (3.5-5.1)
--- NOTE | 2025-04-07 00:17 | XRay Report ---
Exam(s): XR CXR 1 VIEW EXAM: XR Chest, 1 View CLINICAL HISTORY: Chest Pain, nonspecific. TECHNIQUE: Frontal view of the chest. COMPARISON: Chest radiograph 11/13/2024 FINDINGS: Lungs: Bilateral airspace opacities are present. Pleural space: Interval development of moderate left and small right pleural effusions. No pneumothorax. Heart: Cardiomegaly. Mediastinum: Unremarkable. Normal mediastinal contour. Bones/joints: There are degenerative changes of the spine. No acute fracture. IMPRESSION: 1. Interval development of moderate left and small right pleural effusions. 2. Bilateral airspace opacities may represent pulmonary edema and/or atypical infection. 3. Cardiomegaly. Electronically signed by: Yasmin Ga MD 04/07/25 00:17 AM
[2025-04-07] MEDS: cefTRIAXone SODIUM 2,000 MG/50 ML BAG IV STA (00:20)
--- NOTE | 2025-04-07 00:22 | History & Physical Report ---
Date of Service April 07, 2025 Assessment & Plan (1) Atrial fibrillation with rapid ventricular response: (2) CAD (coronary artery disease): (3) HTN (hypertension): (4) Dyslipidemia: (5) T2DM (type 2 diabetes mellitus): (6) UTI (urinary tract infection): Plan 69yo female with history of CAD s/p CABG x 3 on 03/26/2025 presenting with dizziness, palpitations, nausea and vomiting. Found to be in atrial fibrillation with RVR, low blood pressure. #Atrial fibrillation with RVR - no history of prior. Patient has converted to NSR following IV Metoprolol and Amiodarone. Blood pressure has improved. Magnesium is mildly low at 1.5 -Admit to PCU -Magnesium x 2gm IV -Will discontinue Amiodarone for now -Continue Metoprolol 200mg PO daily -Will hold off on anticoagulation for now -Cardiology consultation appreciated #CAD/Elevated troponin - suspect secondary to AF with RVR, low blood pressure -Continue ASA, Atorvastatin, Metoprolol -Trend troponin #UTI - patient with leukocytosis WBC=16.7 -Follow culture sent from the ER -Continue Ceftriaxone #Elevated Cr - -Holding Entresto and Spironolactone -Avoid nephrotoxic agents -Renal dosing where needed -Repeat chemistry in AM #CHF -Hold Entresto and Spironolactone for now -Continue Metoprolol #Hypertension -Continue Metoprolol -Monitor BP #Hyperlipidemia -Continue Atorvastatin #Diabetes - last HgbA1C on 01/14/2025 = 8.1 -Hold Metformin -Lantus 5u BID -Insulin sliding scale History of Present Illness Chief Complaint: Atrial fibrillation Primary Care Provider: Shelli العراقي MD Dinora Ko is a 69yo female with history of DM, HTN, GERD, CAD s/p 3V CABG performed at [facility] [place] on March 26, 2025. Surgery was well tolerated with no complications identified. Patient was discharged to [facility] for rehab one week ago on 04/02/25. She reports doing well at rehab until two nights ago when she developed some nausea and constipation. She was given TUMS and a bowel regimen then developed some diarrhea. She reports having a very bad day and restless night that night. This morning she woke and felt better. She ate some dinner around 17:00. Around 19:00 she developed some dizziness and a headache with nausea and vomiting. She had several episodes of nausea and non-bloody/non-bilious vomiting. She was given an anti-emetic but her nausea persisted so she came to the ER. She has occasional sharp chest pain. Was feeling some palpitations tonight. Otherwise no SOB. No fever. In the ER she was found to be in atrial fibrillation with RVR rate of 167bpm and low blood pressure to 70/50's. She was given IV Metoprolol and started on Amiodarone with conversion to NSR and improvement in blood pressure. To patient's knowledge she has no prior history of atrial fibrillation. No arrhythmia around the time of her surgery. ER Course: NSS x 1L Metoprolol 5mg IV Amiodarone 150mg IV then drip Ceftriaxone 2gm Allergies Allergy/AdvReac Type Severity Reaction Status Date / Time azithromycin Allergy Mild Unknown Verified 12/25/24 08:56 garlic Allergy Diarrhea Verified 12/25/24 08:56 morphine Allergy Rash Verified 04/06/25 22:01 onion Allergy Diarrhea Verified 12/25/24 08:56 Home Medications Medication Instructions Recorded Confirmed Type acetaminophen 325 mg tablet 325 mg PO QID PRN Pain 08/25/24 04/06/25 History benzonatate 200 mg capsule 200 mg PO Q12H 08/25/24 04/06/25 History esomeprazole magnesium 40 mg 40 mg PO DAILY 08/25/24 04/06/25 History capsule,delayed release aspirin 81 mg chewable tablet 81 mg PO DAILY #60 tabs 08/28/24 04/06/25 Rx ([facility]'s Aspirin) cyanocobalamin (vitamin B-12) 1,000 mcg PO DAILY #30 tabs 08/28/24 04/06/25 Rx 1,000 mcg tablet atorvastatin 80 mg tablet 80 mg PO HS #90 tabs 09/25/24 04/06/25 Rx furosemide 20 mg tablet 20 mg PO DAILY PRN 2-3 lb weight 09/25/24 04/06/25 Rx gain, edema, shortness of breath #30 tabs metformin 500 mg tablet 500 mg PO BID 09/25/24 04/06/25 History spironolactone 25 mg tablet 25 mg PO QAM #90 tabs 09/25/24 04/06/25 Rx blood sugar diagnostic (OneTouch 11/13/24 01/14/25 History Verio test strips) pen needle, diabetic 32 gauge x #100 ea 11/13/24 01/14/25 Rx 32" (BD Ultra-Fine Eda Pen Needle) metoprolol succinate 200 mg 200 mg PO QAM #90 tabs 12/12/24 04/06/25 Rx tablet,extended release 24 hr sacubitril 97 mg-valsartan 103 mg 1 tab PO BID #180 tabs 12/25/24 04/06/25 Rx tablet (Entresto) fluticasone propionate 50 1 spray NA PRN Nasal Congestion 01/14/25 History mcg/actuation nasal spray,suspension blood-glucose meter (OneTouch #2 ea 01/29/25 01/29/25 Rx Verio Flex Meter) semaglutide 0.25 mg or 0.5 mg (2 0.5 mg (0.736 mL) subcut Q7D #3 mL 01/29/25 04/06/25 Rx mg/3 mL) subcutaneous pen injector (Ozempic) insulin glargine 100 unit/mL (3 10 unit subcut PM 04/06/25 04/06/25 History mL) subcutaneous pen (Lantus Solostar U-100 Insulin) Past Med/Surg History Problem List (Updated 04/07/25 @ 03:37 by Sirisha Webber DO) UTI (urinary tract infection) Hypotension (Acute) Atrial fibrillation with rapid ventricular response (Acute) CAD (coronary artery disease) Pulmonary hypertension Pericardial effusion Dyslipidemia Cardiomyopathy Heart failure with mildly reduced ejection fraction (HFmrEF, 41-49%) GERD (gastroesophageal reflux disease) Subclinical hypothyroidism HTN (hypertension) T2DM (type 2 diabetes mellitus) Pleural effusion (Acute) CHF (congestive heart failure) (Acute) Upper respiratory infection (Acute) Loose body in knee (Acute) Knee pain, right (Acute) Medical History Left flank pain Anemia Hypokalemia Arthritis Surgical History Hx of left cataract extraction Hx of wisdom tooth extraction Hx of colonoscopy "Unsure when" Social History Smoking Status: Never smoker Second Hand Exposure: No; Do You Dip or Chew Tobacco: No; Hx Alcohol Use: No Hx Substance Use: No Preferred Language: Ghanaian Communication Ability: Effective Yolk Spray Drier Required: No Beliefs That Will Affect Care: None Current Living Situation: Alone Current Living Situation Comment: lives home alone Other Information That Helps Us Care for You: No Feels Safe at Home: Yes Safety Concerns: Feels Safe At This Time Assistive Devices: Glasses Review of Systems Review of Systems: All systems reviewed & are unremarkable except as noted in HPI & below Physical Exam Physical Exam: General: patient resting comfortably, NAD, non-toxic in appearance, AA&O x 4 Skin: warm, dry, intact, no rashes or lesions HEENT: NC/AT, PERRL, EOMI, anicteric sclera, conjunctiva without injection, external ear normal to inspection and nontender, nares patent, moist mucus membranes, dentition intact, no oropharyngeal lesions, neck supple, trachea midline, no LAD, no thyromegaly, no JVD Heart: +S1/S2, regular, no m/r/g, sternotomy incision well approximated with no bleeding/drainage/erythema or dehiscence Lungs: equal air entry bilaterally, no rales/rhonchi/wheezes Abd: +BS, soft, NT/ND, no masses/organomegaly/ascites Ext: warm, 2+ pulses in UE/LE bilaterally, no clubbing/cyanosis or edema Neuro: nonfocal, patient AA&O x 4, speech intact, no facial droop, moving all extremities on command with equal strength 5/5 Results & Data Results & Data Vital Signs (Past 12 Hours) Vital Signs Temp Pulse Pulse Resp BP BP Pulse Ox 04/07/25 00:00 76 20 100/54 L 95 04/06/25 23:30 74 20 99/48 L 95 04/06/25 23:12 70 18 93/51 L 92 04/06/25 23:08 69 04/06/25 23:05 123 H 20 96/59 L 92 04/06/25 23:05 129 H 18 96/59 L 92 04/06/25 22:55 146 H 21 89/73 L 93 04/06/25 22:40 150 H 22 95/52 L 94 04/06/25 22:36 139 H 22 75/48 L 95 04/06/25 22:36 134 H 69/55 L 07/26/25 22:20 173 H 92/54 L 04/06/25 22:11 159 H 20 94/58 L 96 04/06/25 22:00 169 H 18 89/47 L 97 04/06/25 21:58 98 04/06/25 21:54 167 H 18 86/51 L 97 04/06/25 21:45 36.5 C 168 H 22 93/62 L 97 04/06/25 21:39 167 H O2 Del Method 04/07/25 00:00 Room Air 04/06/25 23:30 Room Air 04/06/25 23:12 Room Air 04/06/25 23:08 04/06/25 23:05 Room Air 04/06/25 23:05 Room Air 04/06/25 22:55 Room Air 04/06/25 22:40 Room Air 04/06/25 22:36 Room Air 04/06/25 22:36 04/06/25 22:20 04/06/25 22:11 Room Air 04/06/25 22:00 Room Air 04/06/25 21:58 04/06/25 21:54 Room Air 04/06/25 21:45 Room Air 04/06/25 21:39 Laboratory Results Laboratory Results WBC 16.70 K/ul (4.8-10.8) H 04/06/25 21:50 RBC 2.94 M/uL (4.20-5.40) L 04/06/25 21:50 Hgb 8.8 g/dl (12.0-16.0) L 04/06/25 21:50 POC Hgb 8.8 g/dl (12.0-16.0) L 04/06/25 21:55 Hct 26.2 % (37.0-47.0) L 04/06/25 21:50 POC Hct 26 % (37-47) L 04/06/25 21:55 MCV 89.1 fL (80.0-100.0) 04/06/25 21:50 MCH 29.9 pg (25.0-34.0) 04/06/25 21:50 MCHC 33.6 g/dL (32.0-36.0) 04/06/25 21:50 RDW Std Deviation 42.2 fL (36.4-46.3) 04/06/25 21:50 RDW Coeff of Linette 13.2 % (11.5-14.5) 04/06/25 21:50 Plt Count 367 K/uL (130-400) 04/06/25 21:50 MPV 9.1 fL (9.4-12.4) L 04/06/25 21:50 Immature Gran % (Auto) 0.5 % 04/06/25 21:50 Neut % (Auto) 86.8 % 04/06/25 21:50 Lymph % (Auto) 7.6 % 04/06/25 21:50 [place] % (Auto) 4.1 % 04/06/25 21:50 Eos % (Auto) 0.7 % 04/06/25 21:50 Baso % (Auto) 0.3 % 04/06/25 21:50 Neut # (Auto) 14.50 K/uL (1.40-6.50) H 04/06/25 21:50 Lymph # (Auto) 1.27 K/uL (1.20-3.40) 04/06/25 21:50 [place] # (Auto) 0.69 K/uL (0.11-0.59) H 04/06/25 21:50 Eos # (Auto) 0.11 K/uL (0.00-0.50) 04/06/25 21:50 Baso # (Auto) 0.05 K/uL (0.00-0.20) 04/06/25 21:50 Immature Gran # (Auto) 0.08 K/uL (0.01-0.20) 04/06/25 21:50 PT 10.8 Seconds (9.0-12.0) 04/06/25 21:50 INR 1.0 (0.9-1.1) 04/06/25 21:50 POC Sodium 139 mmol/L (135-144) 04/06/25 21:55 Sodium 138 mmol/L (136-145) 04/06/25 21:50 POC Potassium 4.5 mmol/L (3.3-5.0) 04/06/25 21:55 Potassium 4.5 mmol/L (3.5-5.1) 04/06/25 22:41 POC Chloride 100 mmol/L (101-112) L 04/06/25 21:55 Chloride 101 mmol/L (98-107) 04/06/25 21:50 Carbon Dioxide 27 mmol/L (21-32) 04/06/25 21:50 POC Total CO2 26 mmol/L (24-31) 04/06/25 21:55 Anion Gap 10 (3-11) 04/06/25 21:50 POC Anion Gap 19.0 mmol/L (16-25) 04/06/25 21:55 POC BUN 20 mg/dl (7-18) H 04/06/25 21:55 BUN 21 mg/dl (6-23) 04/06/25 21:50 Creatinine 1.23 mg/dl (0.6-1.2) H 04/06/25 21:50 POC Creatinine 1.5 mg/dl (0.6-1.3) H 04/06/25 21:55 Est Cr Clr Drug Dosing 36.9 ml/min 04/06/25 21:50 eGFR 47.27 04/06/25 21:50 BUN/Creatinine Ratio 17.1 (10-20) 04/06/25 21:50 Glucose 250 mg/dl (70-99(Fasting)) H 04/06/25 21:50 POC Glucose 320 mg/dl (70-99) H* 04/07/25 02:08 POC Glucose (other) 239 mg/dl (70-99) H 04/06/25 21:55 Calcium 8.9 mg/dl (8.6-10.3) 04/06/25 21:50 POC Ioniz Calcium [place] 1.12 mmol/l (1.12-1.32) 04/06/25 21:55 Phosphorus 4.0 mg/dl (2.5-4.9) 04/06/25 21:50 Magnesium 1.5 mg/dl (1.7-2.4) L 04/06/25 21:50 Total Bilirubin 1.0 mg/dl (0.2-1.0) 04/06/25 21:50 AST 19 U/L (13-39) 04/06/25 22:41 ALT 38 U/L (7-52) 04/06/25 21:50 Alkaline Phosphatase 245 U/L (34-104) H 04/06/25 21:50 Troponin I High Sens 173.0 pg/ml (0-14) H* D 04/06/25 22:41 Total Protein 5.9 gm/dl (6.0-8.3) L 04/06/25 21:50 Albumin 3.0 gm/dl (3.4-5.0) L 04/06/25 21:50 Globulin 2.9 gm/dl (2.5-4.0) 04/06/25 21:50 Albumin/Globulin Ratio 1.0 (0.9-2) 04/06/25 21:50 Lipase 59 U/L (11-82) 04/06/25 21:50 TSH 11.367 uIu/ml (0.300-4.500) H 04/06/25 21:50 Free T4 1.16 ng/dl (0.61-1.60) 04/06/25 21:50 Urine Color Dark Yellow 04/06/25 22: Urine Appearance Turbid (Clear) A 04/06/25 22: Urine pH 5.0 (4.5-7.5) 04/06/25: Ur Specific [place] 1.019 (1.000-1.030) 04/06/25 22: Urine Protein 3+ (Negative) H 04/06/25 22: Urine Glucose (UA) Negative (Negative) 04/06/25: Urine Ketones Trace (Negative) H 04/06/25: Urine Blood 3+ (Negative) H 04/06/25: Urine Nitrite Negative (Negative) 04/06/25: Urine Bilirubin 1+ (Negative) H 04/06/25: Urine Urobilinogen Negative (Negative) 04/06/25: Ur Leukocyte Esterase 3+ (Negative) H 04/06/25 22: Urine WBC (Auto) >50 /hpf (0-5) H 04/06/25 22: Urine RBC (Auto) >20 /hpf (0-2) H 04/06/25: U Hyaline Cast (Auto) >20 /lpf (0-2) H 04/06/25 22: U Epithel Cells (Auto) 6-10 /hpf (0-2) H 04/06/25 22: Urine Bacteria (Auto) 4+ (None Seen) H 07/26/25 22:26 Urine Comment 04/06/25 22:26 Impressions Chest X-Ray 04/06/25 21:44 Exam(s): XR CXR 1 VIEW EXAM: XR Chest, 1 View CLINICAL HISTORY: Chest Pain, nonspecific. TECHNIQUE: Frontal view of the chest. COMPARISON: Chest radiograph 11/13/2024 FINDINGS: Lungs: Bilateral airspace opacities are present. Pleural space: Interval development of moderate left and small right pleural effusions. No pneumothorax. Heart: Cardiomegaly. Mediastinum: Unremarkable. Normal mediastinal contour. Bones/joints: There are degenerative changes of the spine. No acute fracture. IMPRESSION: 1. Interval development of moderate left and small right pleural effusions. 2. Bilateral airspace opacities may represent pulmonary edema and/or atypical infection. 3. Cardiomegaly. Electronically signed by: Yasmin Ga MD 04/07/25 00:17 AM ECG Additional Comments: EKG with NSR at 70bpm, no acute ischemic changes Code Status & VTE Plan VTE Prophylaxis Plan VTE Prophylaxis will be ordered: Yes PG Care Time/CCT Total # of Minutes Spent Total Time Spent with Patient: Total time spent is greater than 50% in coordination of care (as documented) at patient's floor/unit and/or counseling patient: Coding Level of Care Code 99157 INT INP/OBS CARE 375MIN Diagnoses Atrial fibrillation with rapid ventricular response I48.91 CAD (coronary artery disease) I25.10 Primary hypertension I10 Hypertension type: primary hypertension Dyslipidemia E78.5 Type 2 diabetes mellitus with other circulatory complication, without long-term current use of insulin E11.59 Diabetes mellitus care home insulin use: without termination clerk use Diabetes mellitus complication status: with circulatory complication Diabetes mellitus complication detail: with other circulatory complications UTI (urinary tract infection) N39.0 (3) HTN (hypertension) Hypertension type: primary hypertension Qualified Code(s): I10 - Essential (primary) hypertension (5) T2DM (type 2 diabetes mellitus) Diabetes mellitus termination clerk insulin use: without care home use Diabetes mellitus complication status: with circulatory complication Diabetes mellitus complication detail: with other circulatory complications Qualified Code(s): E11.59 - Type 2 diabetes mellitus with other circulatory complications
[2025-04-07] MEDS ORDERED: GLUCAGON FOR INJ 1 MG VIAL SQ PRN (01:49)
[2025-04-07] MEDS ORDERED: GLUCOSE 40% GEL 15 GM TUBE PO PRN (01:49)
[2025-04-07] MEDS ORDERED: CARBOHYDRATES FOR HYPOGLYCEMIA PO PRN (01:49)
[2025-04-07] MEDS ORDERED: DEXTROSE 50% 50 ML SYRINGE IV PRN (01:49)
[2025-04-07] MEDS ORDERED: GLUCOSE 10 TAB/TUBE PO PRN (01:49)
[2025-04-07] MEDS: MAGNESIUM SULFATE / D5W 1 GM/100 ML BAG IV SCH (02:11)
[2025-04-07] MEDS: BENZONATATE 100 MG CAPSULE PO PRN (02:11)
[2025-04-07] MEDS: ACETAMINOPHEN 325 MG TAB PO PRN (02:11)
[2025-04-07] MEDS: INSULIN ASPART PER UNIT CHARGE SC SCH (02:21)
[2025-04-07] MEDS ORDERED: AMIODARONE / D5W 360 MG/200 ML BAG IV SCH (04:45)
[2025-04-07] MEDS ORDERED: LIDOCAINE 5% 1 PATCH TD PRN (05:07)
[2025-04-07] MEDS: METOPROLOL SUCC 50MG EXT REL TAB PO SCH (07:54)
[2025-04-07] MEDS: ASPIRIN 81 MG ECTAB PO SCH (07:55)
[2025-04-07] MEDS: LANTUS PER UNIT CHARGE SQ SCH (08:06)
[2025-04-07] MEDS: ACETAMINOPHEN 500 MG TAB PO PRN (09:29)
[2025-04-07] MEDS: ONDANSETRON INJ 2 MG/ML 2 ML VIAL IV PRN (09:39)
--- NOTE | 2025-04-07 10:44 | Hospitalist Progress Note ---
Date of Service April 07, 2025 Assessment & Plan (1) Status post coronary artery bypass graft: (2) UTI (urinary tract infection): (3) Hypotension: (4) Atrial fibrillation with rapid ventricular response: (5) CAD (coronary artery disease): Plan 69yo female with history of CAD s/p CABG x 3 on 03/26/2025 presenting with dizziness, palpitations, nausea and vomiting. Found to be in atrial fibrillation with RVR, low blood pressure. #Atrial fibrillation with RVR - no history of prior. Patient has converted to NSR following IV Metoprolol and Amiodarone. Blood pressure has improved. -Admit to PCU -Will discontinue Amiodarone for now -Continue Metoprolol 200mg PO daily -Hgb 8.8 04/06 --> 7.0 04/07 -CT abdomen/pelvis without contrast to evaluate for bleed, unremarkable -1 unit RBCs transfused 04/07, post-transfusion H&H pending -Will hold off on anticoagulation for now due to low Hgb levels -Cardiology consultation appreciated -GI consult appreciated, possible scope 04/08 AM, NPO at midnight 04/07 -Hemoccult stool study ordered, iron studies show elevated TIBC+transferrin, but total iron and %sat WNL #CAD/Elevated troponin - suspect secondary to AF with RVR, low blood pressure -Continue ASA, Atorvastatin, Metoprolol -Trend troponin (125.8, 173, 430, 411), peaked -ECHO shows EF 45-50%, severe L atrial dilation, mild MR #UTI - patient with leukocytosis WBC=16.7 -Follow culture sent from the ER, pending -Continue Ceftriaxone -UA 3+LE, >50 WBC, >20 RBC, 4+UB #Elevated Cr - -Holding Entresto and Spironolactone -Avoid nephrotoxic agents -Renal dosing where needed -Repeat chemistry in AM #CHF -Hold Entresto and Spironolactone for now -Continue Metoprolol #Hypertension -Continue Metoprolol -Monitor BP #Hyperlipidemia -Continue Atorvastatin #Diabetes - last HgbA1C on 01/14/2025 = 8.1 -Hold Metformin -Lantus 5u BID -Insulin sliding scale Diet: heart healthy, NPO at midnight Code status: full VTE Prophylaxis: compression stockings Dispo: admit Admission and Anticipated Discharge Date Admission Date: April 07, 2025 Marika Ko is a 69yo female with history of DM, HTN, GERD, CAD s/p 3V CABG performed at [facility] [place] on March 26, 2025. Patient denies CP, SOB, N/V, fevers, chills, lightheadedness. States she is having some shooting pain in L leg. Reports fatigue. Last BM was yesterday, denies blood in bowel movement, but states she uses diapers at the rehab center and did not see bowel movement herself. Reports catheter use since her procedure on 03/26. Feels like she has to pee but states she is not able to. No blood thinner use. No other acute concerns. Review of Systems Constitutional: as per Subjective / HPI Physical Exam Constitutional: WD/WN, vitals as above Respiratory: normal respiratory effort, lungs clear to auscultation Cardiovascular: RRR, no murmur, no edema Gastrointestinal (Abdomen): normal bowel sounds, soft, nontender, no hepatosplenomegaly Psychiatric: A+Ox3, euthymic affect Results & Data Results & Data Vital Signs (Past 12 Hours) Vital Signs Temp Pulse Pulse Resp BP Pulse Ox O2 Del Method 04/07/25 07:10 36.8 C 69 18 107/65 94 Room Air 04/07/25 04:00 36.8 C 68 16 98/51 L 95 Room Air 04/07/25 01:54 73 04/07/25 01:30 36.9 C 73 18 104/65 95 Room Air 04/07/25 01:24 72 18 100/50 L 96 Room Air 04/07/25 00:30 77 18 101/68 96 Room Air 04/07/25 00:00 76 20 100/54 L 95 Room Air 04/06/25 23:30 74 20 99/48 L 95 Room Air 04/06/25 23:12 70 18 93/51 L 92 Room Air 04/06/25 23:08 69 04/06/25 23:05 123 H 20 96/59 L 92 Room Air 04/06/25 23:05 129 H 18 96/59 L 92 Room Air 04/06/25 22:55 146 H 21 89/73 L 93 Room Air Resident Activity Tracking Resident Involvement: Resident Care Provided Care Provided: Adult Hospital Medicine (3) Hypotension Hypotension type: unspecified hypotension type Qualified Code(s): I95.9 - Hypotension, unspecified (5) CAD (coronary artery disease) Associated angina: unspecified whether angina present Coronary Disease- Associated Artery/Lesion type: unspecified vessel or lesion type [place] vs. transplanted heart: [place] heart Qualified Code(s): I25.10 - Atherosclerotic heart disease of [place] coronary artery without angina pectoris
--- NOTE | 2025-04-07 11:10 | Cardiology Consultation ---
Date of Consultation April 07, 2025 Assessment & Plan (1) Paroxysmal atrial fibrillation: (2) CAD (coronary artery disease): (3) Status post coronary artery bypass graft: (4) Cardiomyopathy: (5) HTN (hypertension): (6) Anemia: (7) Dyslipidemia: Plan ASSESSMENT/PLAN: 1. Paroxysmal atrial fibrillation: Mildly symptomatic with palpitations however significantly hypotensive while in A-fib with RVR. Converted after IV amiodarone. Will initiate oral amiodarone tomorrow morning after reducing metoprolol succinate from 200 mg to 100 mg daily. Monitor TSH and transaminase levels while on amiodarone. This could still be due to postoperative A-fib from CABG or also related to her acute GI presentation. Would recommend anticoagulation therapy if safe/no contraindication, however her hemoglobin is still trending downward and therefore holding off for now. 2. CAD s/p CABG x 3: No angina. LV systolic function stable. Continue to follow-up with CT surgery at [facility] postoperatively. Cardiac rehab when able from a CT surgery standpoint. Continue aspirin 81 mg daily if no contraindication. Continue high intensity statin therapy and beta-ilan. 3. Heart failure with mildly reduced EF: She appears euvolemic. Resume Entresto (currently held by hospitalist service in the setting of worsening anemia and worsening renal function. Resume spironolactone in the near future, if no contraindication. Has used Lasix 20 mg on an as-needed basis in the outpatient setting and currently euvolemic. Continue metoprolol succinate as above. 4. Cardiomyopathy: Has known ischemic heart disease. Cannot exclude myocarditis with URI weeks before her diagnosis. LV systolic function only mildly reduced. Continue to monitor in the outpatient setting. ICD for primary prevention is not indicated. Continue medical therapy. 5. Dyslipidemia: Continue high intensity statin therapy. 6. Anemia: Hemoglobin continues to trend downward. Initially lower value likely secondary to recent CABG but later trended down to 7 while hospitalized here. Heme check stool. GI consult is pending. 7. Hypertension: Blood pressure is well-controlled but was hypotensive while in afib with RVR. Continue low-sodium diet. Plan as above. 8. Disposition: Cardiology will continue to follow. Plan of care discussed with Dr. Dailey of the primary hospitalist service. Thank you. History of Present Illness Reason for Consultation: atrial fibrillation Requesting Physician: Dr. Eddie Webber Attending Physician: Rommel Dailey History of Present Illness Ms. Ko is a very pleasant 69-year-old female with a history significant for CAD s/p CABG x 3, heart failure with mildly reduced EF, CAD, cardiomyopathy, type 2 diabetes, hypertension, and dyslipidemia. She was admitted on 08/25/2024 after presenting with recurrent left upper quadrant abdominal/flank pain. She was diagnosed with heart failure with mildly reduced EF and underwent cardiac catheterization, demonstrating severe CAD involving the LAD and PL branch. Interventional cardiology recommended CT surgery evaluation in the outpatient setting. She was diuresed and started on GDMT. 6 weeks prior to presentation, she had URI. She has had the following studies/procedures: 1. Echo 08/26/2024 [facility]: Top normal LV size. LVEF 40-45%. Global hypokinesis. Mild LVH. Normal RV size and systolic function. Severe left atrial dilation. Mild MR. RVSP 44. Small pericardial effusion without echocardiographic evidence of tamponade physiology. 2. Cardiac cath 08/28/2024 [facility]: Calcifications noted within the proximal to mid LAD. Ostial to proximal LAD 50-70%. Mid LAD 50 -60%. Late mid LAD longer segment of 80% followed by shorter segment of 80%. Small D1 with mild CAD diffusely. Proximal circumflex 30%. Mid circumflex diffuse mild CAD. Dominant RCA. Calcifications noted within the RCA. Proximal RCA diffuse mild CAD. PL mid 70 to 80%. FLY-3 flow. LVEDP 16. PCWP 7; PA 20/3/9; RV 15/0/2; RAP 1; CO via TD 3.6 with CI 2.2; PVR 0.6. Cath performed via left radial artery (right radial artery with significant tortuosity and also small caliber). 3. Limited echo 08/29/2024 [facility]: Mildly dilated LV. EF 40-45%. Global hypokinesis. No LVH. Mild left atrial dilation. Small pericardial effusion without tamponade physiology. 4. CABG x 3 [facility] 03/26/25: QIU to LAD; SVG to PLB; SVG to diag. 5. ECHO 04/07/25 [facility]: Normal LV size with mildly reduced systolic function. EF 45-50%. Mild global hypokinesis. No LVH. Severe left atrial dilation. Mild MR. Normal RVSP. She was admitted on 04/07/2025 after presenting with nausea and vomiting. She had undergone CABG x 3 at [facility] on 03/26/2025. She was at rehab and notes that 2 days prior to presentation, she had nausea and diarrhea. The day before presentation, she also had dizziness and vomiting. Last evening, she felt jabbing sensation in her feet and legs and mild palpitations. This was the first time that she has felt palpitations. She was noted to be in atrial fibrillation with rapid ventricular response and was also hypotensive at that time in the ER with systolic blood pressures as low as 69 but mostly in the 80s to 90s. According to history and physical report, she received IV metoprolol and amiodarone and she converted to sinus rhythm with improvement of her blood pressure. She has not felt any further palpitations. She has occasional sternotomy pain. She denies shortness of breath, orthopnea, syncope, edema, melena, hematochezia, or hematuria. Review of systems: As above. Family history: Mother had IN at the age of 77. Social history: She denies tobacco, alcohol, or drug abuse. Her . She lives alone. She has a daughter in [place]. 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 She was unaccompanied. Allergies Allergy/AdvReac Type Severity Reaction Status Date / Time azithromycin Allergy Mild Unknown Verified 12/25/24 08:56 garlic Allergy Diarrhea Verified 12/25/24 08:56 morphine Allergy Rash Verified 04/06/25 22:01 onion Allergy Diarrhea Verified 12/25/24 08:56 Home Medications Medication Instructions Recorded Confirmed Type acetaminophen 325 mg tablet 325 mg PO QID PRN Pain 08/25/24 04/06/25 History benzonatate 200 mg capsule 200 mg PO Q12H 08/25/24 04/06/25 History esomeprazole magnesium 40 mg 40 mg PO DAILY 08/25/24 04/06/25 History capsule,delayed release aspirin 81 mg chewable tablet 81 mg PO DAILY #60 tabs 08/28/24 04/06/25 Rx ([facility] Aspirin) cyanocobalamin (vitamin B-12) 1,000 mcg PO DAILY #30 tabs 08/28/24 04/06/25 Rx 1,000 mcg tablet atorvastatin 80 mg tablet 80 mg PO HS #90 tabs 09/25/24 04/06/25 Rx furosemide 20 mg tablet 20 mg PO DAILY PRN 2-3 lb weight 09/25/24 04/06/25 Rx gain, edema, shortness of breath #30 tabs metformin 500 mg tablet 500 mg PO BID 09/25/24 04/06/25 History spironolactone 25 mg tablet 25 mg PO QAM #90 tabs 09/25/24 04/06/25 Rx blood sugar diagnostic (OneTouch 11/13/24 01/14/25 History Verio test strips) pen needle, diabetic 32 gauge x #100 ea 11/13/24 01/14/25 Rx 5/32" (BD Ultra-Fine Eda Pen Needle) metoprolol succinate 200 mg 200 mg PO QAM #90 tabs 12/12/24 04/06/25 Rx tablet,extended release 24 hr sacubitril 97 mg-valsartan 103 mg 1 tab PO BID #180 tabs 12/25/24 04/06/25 Rx tablet (Entresto) fluticasone propionate 50 1 spray NA PRN Nasal Congestion 01/14/25 History mcg/actuation nasal spray,suspension blood-glucose meter (OneTouch #2 ea 01/29/25 01/29/25 Rx Verio Flex Meter) semaglutide 0.25 mg or 0.5 mg (2 0.5 mg (0.736 mL) subcut Q7D #3 mL 01/29/25 04/06/25 Rx mg/3 mL) subcutaneous pen injector (Ozempic) insulin glargine 100 unit/mL (3 10 unit subcut PM 04/06/25 04/06/25 History mL) subcutaneous pen (Lantus Solostar U-100 Insulin) Problem List (Updated 04/07/25 @ 20:52 by Ronan Davis MD) Paroxysmal atrial fibrillation Status post coronary artery bypass graft (Acute) Hypomagnesemia (Acute) UTI (urinary tract infection) Hypotension (Acute) Atrial fibrillation with rapid ventricular response (Acute) CAD (coronary artery disease) (Acute) Pulmonary hypertension Pericardial effusion Dyslipidemia Cardiomyopathy (Acute) Heart failure with mildly reduced ejection fraction (HFmrEF, 41-49%) GERD (gastroesophageal reflux disease) Subclinical hypothyroidism HTN (hypertension) T2DM (type 2 diabetes mellitus) Pleural effusion (Acute) CHF (congestive heart failure) (Acute) Upper respiratory infection (Acute) Loose body in knee (Acute) Knee pain, right (Acute) Patient History Medical History Left flank pain Anemia Hypokalemia Arthritis Surgical History Hx of left cataract extraction Hx of wisdom tooth extraction Hx of colonoscopy "Unsure when" Social History Smoking Status: Never smoker Second Hand Exposure: No; Do You Dip or Chew Tobacco: No; Hx Alcohol Use: No Hx Substance Use: No Preferred Language: Tajik Communication Ability: Effective Home Health Nurse Required: No Beliefs That Will Affect Care: None Current Living Situation: Alone Current Living Situation Comment: lives home alone Other Information That Helps Us Care for You: No Feels Safe at Home: Yes Safety Concerns: Feels Safe At This Time Assistive Devices: Glasses Physical Exam 2 Physical Exam: Gen.: No acute distress. Alert and oriented. HEENT: Anicteric sclera. Neck: No JVD. Cardiac: Regular. Heart rate in the 50s. Normal S1-S2. No murmurs, rubs, or gallops. Pulmonary: Clear to auscultation bilaterally without wheezes, rales, or rhonchi. Abdomen: Soft, nontender, nondistended, with normoactive bowel sounds. No bruits noted. Extremities: Right radial pulse nonpalpable. 2+ left radial pulse. 2+ posterior tibialis pulses bilaterally. No edema or cyanosis. s/p bilateral SVG harvest. Chest: Sternotomy site is clean, dry, and intact without erythema or discharge. Results & Data Vital Signs (Past 12 Hours) Vital Signs Temp Pulse Pulse Resp BP Pulse Ox O2 Del Method 04/07/25 07:10 36.8 C 69 18 107/65 94 Room Air 04/07/25 04:00 36.8 C 68 16 98/51 L 95 Room Air 04/07/25 01:54 73 04/07/25 01:30 36.9 C 73 18 104/65 95 Room Air 04/07/25 01:24 72 18 100/50 L 96 Room Air 04/07/25 00:30 77 18 101/68 96 Room Air 04/07/25 00:00 76 20 100/54 L 95 Room Air 04/06/25 23:30 74 20 99/48 L 95 Room Air 04/06/25 23:12 70 18 93/51 L 92 Room Air 04/06/25 23:08 69 04/06/25 23:05 123 H 20 96/59 L 92 Room Air 04/06/25 23:05 129 H 18 96/59 L 92 Room Air Intake & Output 04/05/25 04/06/25 04/07/25 04/08/25 06:59 06:59 06:59 06:59 Intake Total 2250 / 2250 513 / 513 Output Total 50 / 50 150 / 150 Balance 2200 / 2200 363 / 363 Weight 146 lb 6.191 oz Laboratory Results Laboratory Results - last 24 hr 04/06/25 04/06/25 04/06/25 21:50 21:55 22:26 WBC 16.70 H RBC 2.94 L Hgb 8.8 L POC Hgb 8.8 L Hct 26.2 L POC Hct 26 L MCV 89.1 MCH 29.9 MCHC 33.6 RDW Std Deviation 42.2 RDW Coeff of Linette 13.2 Plt Count 367 MPV 9.1 L Immature Gran % (Auto) 0.5 Neut % (Auto) 86.8 Lymph % (Auto) 7.6 [place] % (Auto) 4.1 Eos % (Auto) 0.7 Baso % (Auto) 0.3 Neut # (Auto) 14.50 H Lymph # (Auto) 1.27 [place] # (Auto) 0.69 H Eos # (Auto) 0.11 Baso # (Auto) 0.05 Immature Gran # (Auto) 0.08 PT 10.8 INR 1.0 POC Sodium 139 Sodium 138 POC Potassium 4.5 Potassium TNP POC Chloride 100 L Chloride 101 Carbon Dioxide 27 POC Total CO2 26 Anion Gap 10 POC Anion Gap 19.0 POC BUN 20 H BUN 21 Creatinine 1.23 H POC Creatinine 1.5 H Est Cr Clr Drug Dosing 36.9 eGFR 47.27 BUN/Creatinine Ratio 17.1 Glucose 250 H POC Glucose POC Glucose (other) 239 H Calcium 8.9 POC Ioniz Calcium Bridgett 1.12 Phosphorus 4.0 Magnesium 1.5 L Total Bilirubin 1.0 AST TNP ALT 38 Alkaline Phosphatase 245 H Troponin I High Sens 125.8 H* Total Protein 5.9 L Albumin 3.0 L Globulin 2.9 Albumin/Globulin Ratio 1.0 Lipase 59 TSH 11.367 H Free T4 1.16 Urine Color Dark Yellow Urine Appearance Turbid A Urine pH 5.0 Ur Specific [place] 1.019 Urine Protein 3+ H Urine Glucose (UA) Negative Urine Ketones Trace H Urine Blood 3+ H Urine Nitrite Negative Urine Bilirubin 1+ H Urine Urobilinogen Negative Ur Leukocyte Esterase 3+ H Urine WBC (Auto) >50 H Urine RBC (Auto) >20 H U Hyaline Cast (Auto) >20 H U Epithel Cells (Auto) 6-10 H Urine Bacteria (Auto) 4+ H Urine Comment 04/06/25 04/07/25 04/07/25 22:41 02:04 02:08 WBC RBC Hgb POC Hgb Hct POC Hct MCV MCH MCHC RDW Std Deviation RDW Coeff of Linette Plt Count MPV Immature Gran % (Auto) Neut % (Auto) Lymph % (Auto) [place] % (Auto) Eos % (Auto) Baso % (Auto) Neut # (Auto) Lymph # (Auto) [place] # (Auto) Eos # (Auto) Baso # (Auto) Immature Gran # (Auto) PT INR POC Sodium Sodium POC Potassium Potassium 4.5 POC Chloride Chloride Carbon Dioxide POC Total CO2 Anion Gap POC Anion Gap POC BUN BUN Creatinine POC Creatinine Est Cr Clr Drug Dosing eGFR BUN/Creatinine Ratio Glucose POC Glucose 329 H* 320 H* POC Glucose (other) Calcium POC Ioniz Calcium [place] Phosphorus Magnesium Total Bilirubin AST 19 ALT Alkaline Phosphatase Troponin I High Sens 173.0 H* D Total Protein Albumin Globulin Albumin/Globulin Ratio Lipase TSH Free T4 Urine Color Urine Appearance Urine pH Ur Specific [place] Urine Protein Urine Glucose (UA) Urine Ketones Urine Blood Urine Nitrite Urine Bilirubin Urine Urobilinogen Ur Leukocyte Esterase Urine WBC (Auto) Urine RBC (Auto) U Hyaline Cast (Auto) U Epithel Cells (Auto) Urine Bacteria (Auto) Urine Comment 04/07/25 04/07/25 04/07/25 06:39 07:09 10:41 WBC RBC Hgb POC Hgb Hct POC Hct MCV MCH MCHC RDW Std Deviation RDW Coeff of Linette Plt Count MPV Immature Gran % (Auto) Neut % (Auto) Lymph % (Auto) [place] % (Auto) Eos % (Auto) Baso % (Auto) Neut # (Auto) Lymph # (Auto) [place] # (Auto) Eos # (Auto) Baso # (Auto) Immature Gran # (Auto) PT INR POC Sodium Sodium POC Potassium Potassium POC Chloride Chloride Carbon Dioxide POC Total CO2 Anion Gap POC Anion Gap POC BUN BUN Creatinine POC Creatinine Est Cr Clr Drug Dosing eGFR BUN/Creatinine Ratio Glucose POC Glucose 214 H POC Glucose (other) Calcium POC Ioniz Calcium Bridgett Phosphorus Magnesium Total Bilirubin AST ALT Alkaline Phosphatase Troponin I High Sens 430.2 H* D Pending Total Protein Albumin Globulin Albumin/Globulin Ratio Lipase TSH Free T4 Urine Color Urine Appearance Urine pH Ur Specific [place] Urine Protein Urine Glucose (UA) Urine Ketones Urine Blood Urine Nitrite Urine Bilirubin Urine Urobilinogen Ur Leukocyte Esterase Urine WBC (Auto) Urine RBC (Auto) U Hyaline Cast (Auto) U Epithel Cells (Auto) Urine Bacteria (Auto) Urine Comment Diagnostic Findings When patient seen today, telemetry was not available for review as she was off the unit. Labs reviewed and notable for peak high-sensitivity troponin of 430, normal potassium, mildly abnormal renal function, normal transaminase levels, mildly elevated TSH, mild leukocytosis but improved, worsening anemia. History and physical report reviewed. CABG operative report reviewed as summarized in HPI. Echo report reviewed as noted above in HPI. ECGs personally reviewed: ECG 04/06/2025 at 2141: A-fib with RVR at [address]/T wave abnormality. ECG 04/06/2025 at 2311: Sinus rhythm [address]/T wave abnormalities resolved. CT abdomen/pelvis 04/07/2025: No acute findings per radiology. No hematoma. Chest x-ray 04/06/2025: Moderate left and small right pleural effusions. Bilateral airspace opacities per radiology. Medications Administered Current Inpatient Medications Acetaminophen (Acetaminophen 500 Mg Tab) 1,000 mg PO TID PRN PRN Reason: Pain Stop: 05/07/25 01:48 Last Admin: 04/07/25 09:29 Dose: 1,000 mg Aspirin (Aspirin 81 Mg Ectab) 81 mg PO DAILY TANYA Stop: 05/07/25 08:59 Last Admin: 04/07/25 07:55 Dose: 81 mg Atorvastatin Calcium (Atorvastatin 40 Mg Tab) 80 mg PO HS TANYA Stop: 05/07/25 20:59 Benzonatate (Benzonatate 100 Mg Capsule) 200 mg PO Q12H PRN PRN Reason: cough Stop: 05/07/25 01:48 Last Admin: 04/07/25 02:11 Dose: 200 mg Dextrose (Dextrose 50% 50 Ml Syringe) 25 - 50 ml IV UD PRN; Protocol PRN Reason: Hypoglycemia Protocol Stop: 05/07/25 01:48 Glucagon (Glucagon For Inj 1 Mg Vial) 1 mg SQ UD PRN; Protocol PRN Reason: Hypoglycemia Protocol Stop: 05/07/25 01:48 Glucose (Glucose 40% Gel 15 Gm Tube) 15 - 30 gm PO UD PRN; Protocol PRN Reason: Hypoglycemia Protocol Stop: 05/07/25 01:48 Glucose (Glucose 10 Tab/Tube) 4 - 8 tab PO UD PRN; Protocol PRN Reason: Hypoglycemia Protocol Stop: 05/07/25 01:48 Ceftriaxone Sodium (Rocephin) 1,000 mg in 50 mls @ 100 mls/hr IV Q24H [facility] Stop: 04/12/25 21:59 Insulin Aspart (Insulin Aspart Per Unit Charge) 0 units SC ACHS [facility] Stop: 05/07/25 01:59 Last Admin: 04/07/25 08:07 Dose: 1 units Insulin Glargine (Lantus Per Unit Charge) 5 units SQ BID [facility] Stop: 05/07/25 08:59 Last Admin: 04/07/25 08:06 Dose: 5 units Lidocaine (Lidocaine 5% 1 Patch) 1 patch TD QAM PRN PRN Reason: lower extremity pain Stop: 05/07/25 08:59 Metoprolol Succinate (Metoprolol Succ 50mg Ext Rel Tab) 200 mg PO QAM [facility] Stop: 05/07/25 08:59 Last Admin: 04/07/25 07:54 Dose: 200 mg Miscellaneous (Carbohydrates For Hypoglycemia ) 15 - 30 gm PO UD PRN PRN Reason: Hypoglycemia Protocol Stop: 05/07/25 01:48 Miscellaneous (Remove Lidoderm Patch) 1 each N/A DAILY@2100 [facility] Stop: 05/07/25 20:59 Ondansetron HCl (Ondansetron Inj 2 Mg/Ml 2 Ml Vial) 4 mg IV Q6H PRN PRN Reason: Nausea And Vomiting Stop: 05/07/25 01:48 Last Admin: 04/07/25 09:39 Dose: 4 mg PG Care Time/CCT Total # of Minutes Spent Total Time Spent with Patient: Total time spent is greater than 50% in coordination of care (as documented) at patient's floor/unit and/or counseling patient: Coding Level of Care Code 84511 INT INP/OBS CARE 3/75MIN Diagnoses Paroxysmal atrial fibrillation I48.0 CAD (coronary artery disease) I25.10 Associated angina: unspecified whether angina present Coronary Disease-Associated Artery/Lesion type: unspecified vessel or lesion type [place] vs. transplanted heart: [place] heart Status post coronary artery bypass graft Z95.1 Cardiomyopathy I42.9 Cardiomyopathy type: unspecified Primary hypertension I10 Hypertension type: primary hypertension Anemia D64.9 Dyslipidemia E78.5 (2) CAD (coronary artery disease) Associated angina: unspecified whether angina present Coronary Disease- Associated Artery/Lesion type: unspecified vessel or lesion type [place] vs. transplanted heart: [place] heart Qualified Code(s): I25.10 - Atherosclerotic heart disease of [place] coronary artery without angina pectoris (4) Cardiomyopathy Cardiomyopathy type: unspecified Qualified Code(s): I42.9 - Cardiomyopathy, unspecified (5) HTN (hypertension) Hypertension type: primary hypertension Qualified Code(s): I10 - Essential (primary) hypertension
[2025-04-07 11:42] LABS: Hematocrit (blood only) 21.5 % (37.0-47.0); Hemoglobin 7.0 g/dl (12.0-16.0); Immature Granulocytes # (auto) 0.04 K/uL (0.01-0.20); Immature Granulocytes % (auto) 0.3 %; Mean Corpuscular Hemoglobin 29.9 pg (25.0-34.0); Mean Corpuscular Volume 91.9 fL (80.0-100.0); Platelet Count 353 K/uL (130-400); RDW Standard Deviation 42.7 fL (36.4-46.3); Red Blood Count 2.34 M/uL (4.20-5.40); White Blood Count 11.56 K/ul (4.8-10.8)
[2025-04-07 11:49] LABS: Anion Gap 7.0 (3-11); Blood Urea Nitrogen 26.0 mg/dl (6-23); Calcium 8.6 mg/dl (8.6-10.3); Carbon Dioxide 28.0 mmol/L (21-32); Chloride 102.0 mmol/L (98-107); Creatinine Clr Calc Pharmacy 28.7 ml/min; Glucose 176.0 mg/dl (70-99(Fasting)); Iron 46.0 mcg/dl (35-150); Potassium 4.3 mmol/L (3.5-5.1); Sodium 137.0 mmol/L (136-145); Total Iron Binding Cap Calc 218.0 mcg/dl (250-450); Transferrin 156.0 mg/dl (200-360); Transferrin (FE) Percent Satur 21.0 % (15-50)
[2025-04-07] MEDS ORDERED: SODIUM CHLORIDE 0.9% 100 ML IV PRN (11:58)
[2025-04-07 12:00] LABS: Polychromasia 1+
[2025-04-07] MEDS ORDERED: PANTOPRAZOLE BOLUS/DRIP IV STA (12:03)
[2025-04-07 12:10] LABS: Ferritin 1046.0 ng/ml (8-388)
--- NOTE | 2025-04-07 13:17 | CT Scan Report ---
ABDOMEN AND PELVIS CT WITHOUT CONTRAST CT DOSE: 1123.42 mGy.cm HISTORY: evaluate for bleed TECHNIQUE: Multiaxial CT images of the abdomen and pelvis were performed without contrast. A dose lo wering technique was utilized adhering to the principles of ALARA. COMPARISON STUDY: 08/25/2024 FINDINGS: There is motion artifact. There are small bilateral pleural effusions with adjacent dependent consolidation in the lower lobes, mildly improved. There are diffuse coronary artery calcifications. ABDOMEN: There is trace ascites. There is a possible small amount of gallbladder sludge. Liver, gallb ladder, spleen, pancreas, and adrenal glands otherwise have an unremarkable noncontrast appearance. T here are a few small cysts at the left kidney. There is no hydronephrosis or calculi bilaterally. The re are scattered atherosclerotic calcifications. No abdominal aortic aneurysm. Pelvis: Stable small calcified uterine fibroid. IUD is present in the endometrial cavity, stable. No adnexal mass. Stephenson catheter is present in the urinary bladder is decompressed. There is mild retaine d stool. There is mild colonic diverticulosis. No acute diverticulitis. No bowel inflammation or obst ruction. No free fluid, free air, or abscess. No hematoma seen. Osseous structures: There is moderate lower lumbar degenerative disc disease. No acute osseous findin gs. IMPRESSION: No acute findings seen at the abdomen or pelvis. No hematoma seen. Otherwise as described . ACT 112: Negative or not required by law. The above report was generated using voice recognition software. It may contain grammatical, syntax o r spelling errors. Electronically signed by: Steve Kang M.D. 04/07/2025 1:14 PM
[2025-04-07] MEDS: PANTOprazole 40 MG in DEXTROSE 5% MINI-B 100 ML IV SCH (13:40)
--- NOTE | 2025-04-07 15:56 | XCELERA ---
[id number]
[2025-04-07] MEDS: ATORVASTATIN 40 MG TAB PO SCH (20:35)
[2025-04-07] MEDS: REMOVE LIDODERM PATCH SCH (20:36)
[2025-04-07] MEDS ORDERED: Nursing to Pharmacy Communication SCH (20:45)
[2025-04-07 20:54] LABS: Hematocrit (blood only) 25.9 % (37.0-47.0); Hemoglobin 8.7 g/dl (12.0-16.0)
[2025-04-07] MEDS: cefTRIAXone SODIUM 1,000 MG/50 ML BAG IV SCH (21:10)
[2025-04-08] MEDS: INSULIN ASPART PER UNIT CHARGE SC SCH ×2 (06:00→20:32)
[2025-04-08 08:22] LABS: Hematocrit (blood only) 28.9 % (37.0-47.0); Hemoglobin 9.4 g/dl (12.0-16.0); Mean Corpuscular Hemoglobin 29.8 pg (25.0-34.0); Mean Corpuscular Volume 91.7 fL (80.0-100.0); Platelet Count 398 K/uL (130-400); RDW Standard Deviation 45.9 fL (36.4-46.3); Red Blood Count 3.15 M/uL (4.20-5.40); White Blood Count 10.28 K/ul (4.8-10.8)
[2025-04-08 08:59] LABS: Alanine Aminotransferase 29.0 U/L (7-52); Alkaline Phosphatase 207.0 U/L (34-104); Anion Gap 5.0 (3-11); Bilirubin,Total 0.5 mg/dl (0.2-1.0); Blood Urea Nitrogen 25.0 mg/dl (6-23); Calcium 9.0 mg/dl (8.6-10.3); Carbon Dioxide 31.0 mmol/L (21-32); Chloride 104.0 mmol/L (98-107); Creatinine Clr Calc Pharmacy 33.1 ml/min; Glucose 144.0 mg/dl (70-99(Fasting)); Potassium 4.3 mmol/L (3.5-5.1); Sodium 140.0 mmol/L (136-145); Total Protein 5.6 gm/dl (6.0-8.3)
--- NOTE | 2025-04-08 09:16 | Hospitalist Progress Note ---
Date of Service April 08, 2025 Assessment & Plan (1) Status post coronary artery bypass graft: (2) UTI (urinary tract infection): (3) Hypotension: (4) Atrial fibrillation with rapid ventricular response: (5) CAD (coronary artery disease): Plan 69yo female with history of CAD s/p CABG x 3 on 03/26/2025 presenting with dizziness, palpitations, nausea and vomiting. Found to be in atrial fibrillation with RVR, low blood pressure. #Atrial fibrillation with RVR - no history of prior. Patient has converted to NSR following IV Metoprolol and Amiodarone. Blood pressure has improved. - Could be related to recent CABG procedure -Admit to PCU -Hgb 8.8 04/06 --> 7.0 04/07 -CT abdomen/pelvis without contrast to evaluate for bleed, unremarkable -1 unit RBCs transfused 04/07, post-transfusion H&H 8.6 -Will hold off on anticoagulation for now due to anemia workup/scope -Cardiology consultation appreciated: advised Metoprolol 100mg and Amio 200mg daily -GI consult appreciated, possible scope, NPO at midnight 04/08 -Hemoccult stool study ordered and pending - Iron studies show elevated TIBC+transferrin, but total iron and %sat WNL -CHADS-VASC score 6, will start anticoagulation once GI workup is completed #CAD/Elevated troponin - suspect secondary to AF with RVR, low blood pressure -Continue ASA, Atorvastatin, Metoprolol -Trend troponin (125.8, 173, 430, 411), peaked -ECHO shows EF 45-50%, severe L atrial dilation, mild MR #UTI - patient with leukocytosis WBC=16.7 -Follow culture sent from the ER, prelim culture shows +Klebsiella pneumoniae and +Citrobacter freundi complex -Switch from Ceftriaxone to Cefepime -UA 3+LE, >50 WBC, >20 RBC, 4+UB -WBC downtrended to 10.28 on 04/08 #Elevated Cr - -Holding Entresto and Spironolactone -Avoid nephrotoxic agents -Renal dosing where needed -Repeat chemistry in AM #CHF -Hold Entresto and Spironolactone for now -Continue Metoprolol #Hypertension -Continue Metoprolol -Monitor BP #Hyperlipidemia -Continue Atorvastatin #Diabetes -last HgbA1C on 01/14/2025 = 8.1 -Hold Metformin -Lantus 5u BID -Insulin sliding scale Diet: heart healthy, NPO at midnight Code status: full VTE Prophylaxis: compression stockings Dispo: admit Admission and Anticipated Discharge Date Admission Date: April 07, 2025 Supervising Physician Co-Signing Physician Notes I personally examined the patient and verified all guerra points of history and exam, discussed case, and agree with decision making with Dr Camacho Feeling okay overall, Acutely. Just very weak. Still feels like she has been run over as it relates to her CABG. Upset with her daughter as her daughter wants her to go to a facility and she wants to go home. Right now she will need to go back to rehab anyway. Vitals noted, in general she is awake and alert pleasant no acute distress does appear fatigued. HEENT normocephalic atraumatic mucous membranes moist. Cardio is now sinus rhythm rate of about 60. Breathing unlabored no accessory muscle use good effort. Skin without rashes pallor or icterus. Neuro without focal deficits. Atrial fibrillation with RVRpotentially postoperative A-fib with RVR, complication of care due to recent CABG, but at the same time she has a lot of left atrial enlargement and plenty of reason to have atrial fibrillation just becauseso more than likely the postoperative state and physiologic stress are more the "why now" rather than the true underlying why she had atrial fibrillation to begin with. Continue metoprolol and amiodarone for now, hopefully will be able to maintain rate control just with metoprolol and we can hopefully DC the amiodarone in the near future. Will need anticoagulationbut definitely want a make sure she does not have active bleeding first. Anemiastatus post 1 unit transfusion of packed red cellshemodynamically stable hemoglobin has risen quite a bit. The "easy answer" would be related to her recent rather massive surgerythe only problem there being that it would be unclear why she dropped after admission, other than simple lab variation. Appreciate GI input. Anticipate endoscopic workupif no active bleeding, then can likely start a DOAC. Subjective Denies angina, shortness of breath, syncope, near syncope, palpitations, or bleeding. She received PRBC x 1 on 04/07/2025. Denies nausea, vomiting, chest pain, lightheadedness. States she slept well last night and is not having any pain. Last BM was yesterday evening, non-bloody. She was seen by GI today with possibility of endoscopy. She was unaccompanied. Review of Systems Constitutional: as per Subjective / HPI Physical Exam Constitutional: WD/WN, vitals as above Respiratory: normal respiratory effort, lungs clear to auscultation Cardiovascular: RRR, no murmur, no edema Gastrointestinal (Abdomen): normal bowel sounds, soft, nontender, no hepatosplenomegaly Skin: no rashes, warm and dry Psychiatric: A+Ox3, euthymic affect Results & Data Results & Data Vital Signs (Past 12 Hours) Vital Signs Temp Pulse Pulse Resp BP Pulse Ox O2 Del Method 04/08/25 07:29 36.7 C 59 L 16 138/65 93 Room Air 04/08/25 02:29 36.8 C 60 14 100/55 L 92 Room Air 04/07/25 23:00 36.7 C 60 18 119/53 L 91 Room Air 04/07/25 21:47 60 Resident Activity Tracking Resident Involvement: Resident Care Provided Care Provided: Adult Hospital Medicine (3) Hypotension Hypotension type: unspecified hypotension type Qualified Code(s): I95.9 - Hypotension, unspecified (5) CAD (coronary artery disease) Associated angina: unspecified whether angina present Coronary Disease- Associated Artery/Lesion type: unspecified vessel or lesion type [place] vs. transplanted heart: [place] heart Qualified Code(s): I25.10 - Atherosclerotic heart disease of [place] coronary artery without angina pectoris
[2025-04-08] MEDS: METOPROLOL SUCC 50MG EXT REL TAB PO SCH (10:02)
--- NOTE | 2025-04-08 10:02 | Gastrointestinal Consultation ---
Date of Consultation April 08, 2025 Assessment & Plan (1) Anemia: 69 year old female w/ history of CAD s/p CABG x 3 on 03/26/2025 presenting with dizziness, palpitations, nausea and vomiting admitted w/ atrial fibrillation with RVR - GI was asked to evaluate for anemia w/o signs of active GI bleeding Follow Hemoccult. We discussed EGD/Colonoscopy at bedside. Will discuss timing w/ attending. May continue NPO for now. Trend H&H. Monitor and document output. Transfuse PRN per primary team. May continue PPI. We appreciate assistance in the management of any serological abnormality and corrections to include: hemoglobin >7, INR <2, platelets >50,000, potassium levels >3.5 but <5.3, and sodium levels within 5 points of the reference range prior to endoscopic evaluation. Supervising Physician Co-Signing Physician Notes I saw and examined this patient with our nurse practitioner and agree with her assessment and plan. No evidence of overt bleeding. Awaiting FOBT. Depending upon results may need endoscopy and colonoscopy which can be done as an outpatient. History of Present Illness Reason for Consultation: possible scope, Hgb 7.0 Requesting Physician: Sergo Jackson DO Attending Physician: Sergo Jackson DO History of Present Illness 69 year old female w/ history of CAD s/p CABG x 3 on 03/26/2025 presenting with dizziness, palpitations, nausea and vomiting admitted w/ atrial fibrillation with RVR - GI was asked to evaluate for anemia. Pt was seen and evaluated, chart reviewed. Suggests she has had intermittent reflux for some time. She was using OTC antacids but was seen by her PCP and started on Nexium which has controlled her symptoms well. She denies abd pain, nausea/vomiting. No reflux/regurgitation. Denies dysphagia. Reports her bowels move every few days. Does have constipation from time to time. No black or bloody stools. She does report weight loss to me over the last few months, she suggests 30 lbs or so. She notes a Cologuard was negative a few years ago Had a colonoscopy in the past but suggests this as quite some time ago. HGB 7 --> 1 unit --> 9.4 Allergies Allergy/AdvReac Type Severity Reaction Status Date / Time azithromycin Allergy Mild Unknown Verified 12/25/24 08:56 garlic Allergy Diarrhea Verified 12/25/24 08:56 morphine Allergy Rash Verified 04/06/25 22:01 onion Allergy Diarrhea Verified 12/25/24 08:56 Home Medications Medication Instructions Recorded Confirmed Type acetaminophen 325 mg tablet 325 mg PO QID PRN Pain 08/25/24 04/06/25 History benzonatate 200 mg capsule 200 mg PO Q12H 08/25/24 04/06/25 History esomeprazole magnesium 40 mg 40 mg PO DAILY 08/25/24 04/06/25 History capsule,delayed release aspirin 81 mg chewable tablet 81 mg PO DAILY #60 tabs 08/28/24 04/06/25 Rx (Children's Aspirin) cyanocobalamin (vitamin B-12) 1,000 mcg PO DAILY #30 tabs 08/28/24 04/06/25 Rx 1,000 mcg tablet atorvastatin 80 mg tablet 80 mg PO HS #90 tabs 09/25/24 04/06/25 Rx furosemide 20 mg tablet 20 mg PO DAILY PRN 2-3 lb weight 09/25/24 04/06/25 Rx gain, edema, shortness of breath #30 tabs metformin 500 mg tablet 500 mg PO BID 09/25/24 04/06/25 History spironolactone 25 mg tablet 25 mg PO QAM #90 tabs 09/25/24 04/06/25 Rx blood sugar diagnostic (OneTouch 11/13/24 01/14/25 History Verio test strips) pen needle, diabetic 32 gauge x #100 ea 11/13/24 01/14/25 Rx 5/32" (BD Ultra-Fine Eda Pen Needle) metoprolol succinate 200 mg 200 mg PO QAM #90 tabs 12/12/24 04/06/25 Rx tablet,extended release 24 hr sacubitril 97 mg-valsartan 103 mg 1 tab PO BID #180 tabs 12/25/24 04/06/25 Rx tablet (Entresto) fluticasone propionate 50 1 spray NA PRN Nasal Congestion 01/14/25 History mcg/actuation nasal spray,suspension blood-glucose meter (OneTouch #2 ea 01/29/25 01/29/25 Rx Verio Flex Meter) semaglutide 0.25 mg or 0.5 mg (2 0.5 mg (0.736 mL) subcut Q7D #3 mL 01/29/25 04/06/25 Rx mg/3 mL) subcutaneous pen injector (Ozempic) insulin glargine 100 unit/mL (3 10 unit subcut PM 04/06/25 04/06/25 History mL) subcutaneous pen (Lantus Solostar U-100 Insulin) Patient History Medical History Left flank pain Anemia Hypokalemia Arthritis Surgical History Hx of left cataract extraction Hx of wisdom tooth extraction Hx of colonoscopy "Unsure when" Social History Smoking Status: Never smoker Second Hand Exposure: No; Do You Dip or Chew Tobacco: No; Hx Alcohol Use: No Hx Substance Use: No Preferred Language: [place] Communication Ability: Effective Certified Medication Aide Required: No Beliefs That Will Affect Care: None Current Living Situation: Alone Current Living Situation Comment: lives home alone Other Information That Helps Us Care for You: No Feels Safe at Home: Yes Safety Concerns: Feels Safe At This Time Assistive Devices: None Review of Systems Review of Systems: All other findings negative except as noted in HPI. Physical Exam Constitutional: WD/WN, vitals as above Respiratory: normal respiratory effort Cardiovascular: Rate/Rhythm: regular rate Gastrointestinal (Abdomen): normal bowel sounds, soft, nontender, no hepatosplenomegaly Skin: no rashes, warm and dry Results & Data Vital Signs (Past 12 Hours) Vital Signs Temp Pulse Resp BP Pulse Ox O2 Del Method 04/08/25 07:29 98.1 F 59 L 16 138/65 93 Room Air 04/08/25 02:29 98.2 F 60 14 100/55 L 92 Room Air 04/07/25 23:00 98.1 F 60 18 119/53 L 91 Room Air Laboratory Results 04/08/25 04/08/25 04/07/25 Range/Units 07:33 06:00 20:45 WBC 10.28 (4.8-10.8) K/ul RBC 3.15 L (4.20-5.40) M/uL Hgb 9.4 L (12.0-16.0) g/dl Hct 28.9 L (37.0-47.0) % MCV 91.7 (80.0-100.0) fL MCH 29.8 (25.0-34.0) pg MCHC 32.5 (32.0-36.0) g/dL RDW Std Deviation 45.9 (36.4-46.3) fL RDW Coeff of Linette 13.7 (11.5-14.5) % Plt Count 398 (130-400) K/uL MPV 9.3 L (9.4-12.4) fL Immature Gran % (Auto) % Neut % (Auto) % Lymph % (Auto) % [place] % (Auto) % Eos % (Auto) % Baso % (Auto) % Neut # (Auto) (1.40-6.50) K/uL Lymph # (Auto) (1.20-3.40) K/uL [place] # (Auto) (0.11-0.59) K/uL Eos # (Auto) (0.00-0.50) K/uL Baso # (Auto) (0.00-0.20) K/uL Immature Gran # (Auto) (0.01-0.20) K/uL Polychromasia Sodium 140 (136-145) mmol/L Potassium 4.3 (3.5-5.1) mmol/L Chloride 104 (98-107) mmol/L Carbon Dioxide 31 (21-32) mmol/L Anion Gap 5 (3-11) BUN 25 H (6-23) mg/dl Creatinine 1.34 H (0.6-1.2) mg/dl Est Cr Clr Drug Dosing 33.1 ml/min eGFR 42.66 BUN/Creatinine Ratio 18.7 (10-20) Glucose 144 H (70-99(Fasting)) mg/dl POC Glucose 147 H 217 H (70-99) mg/dl Calcium 9.0 (8.6-10.3) mg/dl Iron (35-150) mcg/dl TIBC (250-450) mcg/dl Transferrin (200-360) mg/dl Transferrin % Sat (15-50) % Ferritin (8-388) ng/ml Total Bilirubin 0.5 D (0.2-1.0) mg/dl Direct Bilirubin 0.1 (0-0.2) mg/dl AST 17 (13-39) U/L ALT 29 (7-52) U/L Alkaline Phosphatase 207 H (34-104) U/L Troponin I High Sens (0-14) pg/ml Total Protein 5.6 L (6.0-8.3) gm/dl Albumin 3.2 L (3.4-5.0) gm/dl Blood Type Blood Type Recheck Antibody Screen Crossmatch 04/07/25 04/07/25 04/07/25 Range/Units 20:20 16:22 11:36 WBC (4.8-10.8) K/ul RBC (4.20-5.40) M/uL Hgb 8.7 L (12.0-16.0) g/dl Hct 25.9 L (37.0-47.0) % MCV (80.0-100.0) fL MCH (25.0-34.0) pg MCHC (32.0-36.0) g/dL RDW Std Deviation (36.4-46.3) fL RDW Coeff of Linette (11.5-14.5) % Plt Count (130-400) K/uL MPV (9.4-12.4) fL Immature Gran % (Auto) % Neut % (Auto) % Lymph % (Auto) % [place] % (Auto) % Eos % (Auto) % Baso % (Auto) % Neut # (Auto) (1.40-6.50) K/uL Lymph # (Auto) (1.20-3.40) K/uL [place] # (Auto) (0.11-0.59) K/uL Eos # (Auto) (0.00-0.50) K/uL Baso # (Auto) (0.00-0.20) K/uL Immature Gran # (Auto) (0.01-0.20) K/uL Polychromasia Sodium (136-145) mmol/L Potassium (3.5-5.1) mmol/L Chloride (98-107) mmol/L Carbon Dioxide (21-32) mmol/L Anion Gap (3-11) BUN (6-23) mg/dl Creatinine (0.6-1.2) mg/dl Est Cr Clr Drug Dosing ml/min eGFR BUN/Creatinine Ratio (10-20) Glucose (70-99(Fasting)) mg/dl POC Glucose 158 H 175 H (70-99) mg/dl Calcium (8.6-10.3) mg/dl Iron (35-150) mcg/dl TIBC (250-450) mcg/dl Transferrin (200-360) mg/dl Transferrin % Sat (15-50) % Ferritin (8-388) ng/ml Total Bilirubin (0.2-1.0) mg/dl Direct Bilirubin (0-0.2) mg/dl AST (13-39) U/L ALT (7-52) U/L Alkaline Phosphatase (34-104) U/L Troponin I High Sens (0-14) pg/ml Total Protein (6.0-8.3) gm/dl Albumin (3.4-5.0) gm/dl Blood Type Blood Type Recheck Antibody Screen Crossmatch 04/07/25 04/06/25 Range/Units 10:41 21:50 WBC 11.56 H (4.8-10.8) K/ul RBC 2.34 L (4.20-5.40) M/uL Hgb 7.0 L (12.0-16.0) g/dl Hct 21.5 L (37.0-47.0) % MCV 91.9 (80.0-100.0) fL MCH 29.9 (25.0-34.0) pg MCHC 32.6 (32.0-36.0) g/dL RDW Std Deviation 42.7 (36.4-46.3) fL RDW Coeff of Linette 13.2 (11.5-14.5) % Plt Count 353 (130-400) K/uL MPV 9.9 (9.4-12.4) fL Immature Gran % (Auto) 0.3 % Neut % (Auto) 74.0 % Lymph % (Auto) 18.3 % [place] % (Auto) 6.1 % Eos % (Auto) 1.0 % Baso % (Auto) 0.3 % Neut # (Auto) 8.56 H (1.40-6.50) K/uL Lymph # (Auto) 2.11 (1.20-3.40) K/uL [place] # (Auto) 0.70 H (0.11-0.59) K/uL Eos # (Auto) 0.11 (0.00-0.50) K/uL Baso # (Auto) 0.04 (0.00-0.20) K/uL Immature Gran # (Auto) 0.04 (0.01-0.20) K/uL Polychromasia 1+ Sodium 137 (136-145) mmol/L Potassium 4.3 (3.5-5.1) mmol/L Chloride 102 (98-107) mmol/L Carbon Dioxide 28 (21-32) mmol/L Anion Gap 7 (3-11) BUN 26 H (6-23) mg/dl Creatinine 1.55 H D (0.6-1.2) mg/dl Est Cr Clr Drug Dosing 28.7 ml/min eGFR 35.82 BUN/Creatinine Ratio 16.8 (10-20) Glucose 176 H (70-99(Fasting)) mg/dl POC Glucose (70-99) mg/dl Calcium 8.6 (8.6-10.3) mg/dl Iron 46 (35-150) mcg/dl TIBC 218 L (250-450) mcg/dl Transferrin 156 L (200-360) mg/dl Transferrin % Sat 21 (15-50) % Ferritin 1046.0 H (8-388) ng/ml Total Bilirubin (0.2-1.0) mg/dl Direct Bilirubin (0-0.2) mg/dl AST (13-39) U/L ALT (7-52) U/L Alkaline Phosphatase (34-104) U/L Troponin I High Sens 411.9 H* (0-14) pg/ml Total Protein (6.0-8.3) gm/dl Albumin (3.4-5.0) gm/dl Blood Type O Negative Blood Type Recheck O Negative Antibody Screen NEGATIVE Crossmatch See Detail PG Care Time/CCT Total # of Minutes Spent Total Time Spent with Patient: Total time spent is greater than 50% in coordination of care (as documented) at patient's floor/unit and/or counseling patient: Coding Level of Care Code 14494 INT INP/OBS CARE 2/55MIN Diagnoses Anemia D64.9
[2025-04-08] MEDS: AMIODARONE 200 MG TAB PO SCH (10:07)
--- NOTE | 2025-04-08 10:43 | Cardiology Progress Note ---
Date of Service April 08, 2025 Assessment & Plan (1) Paroxysmal atrial fibrillation: (2) CAD (coronary artery disease): (3) Status post coronary artery bypass graft: (4) Cardiomyopathy: (5) HTN (hypertension): (6) Anemia: (7) Dyslipidemia: Plan ASSESSMENT/PLAN: 1. Paroxysmal atrial fibrillation: Mildly symptomatic with palpitations however significantly hypotensive while in A-fib with RVR. Converted after IV amiodarone. Amiodarone 200 mg p.o. daily started on 04/08/2025 after reducing metoprolol succinate from 200 mg to 100 mg daily. Monitor TSH and transaminase levels while on amiodarone. This could still be due to postoperative A-fib from CABG or also related to her acute GI presentation. Would recommend anticoagulation therapy if safe/no contraindication, however she is being evaluated for anemia. 2. CAD s/p CABG x 3: No angina. LV systolic function stable. Continue to follow-up with CT surgery at [facility] postoperatively. Cardiac rehab when able from a CT surgery standpoint. Continue aspirin 81 mg daily if no contraindication. Continue high intensity statin therapy and beta-ilan. 3. Heart failure with mildly reduced EF: She appears euvolemic. Resume Entresto (currently held by hospitalist service in the setting of anemia and acute renal insufficiency). Able, would recommend resuming Entresto. Can start at lower dose and titrate upward as tolerated. Can resume spironolactone in the future, if no contraindication. Has used Lasix 20 mg on an as-needed basis in the outpatient setting and currently euvolemic. Continue metoprolol succinate as above. 4. Cardiomyopathy: Has known ischemic heart disease. Cannot exclude myocardit is with URI weeks before her diagnosis. LV systolic function only mildly reduced. Continue to monitor in the outpatient setting. ICD for primary prevention is not indicated. Continue medical therapy. 5. Dyslipidemia: Continue high intensity statin therapy. 6. Anemia: Received PRBC x 1 on 04/07/2025. GI planning for potential endoscopy. 7. Hypertension: Blood pressure is well-controlled but was hypotensive while in afib with RVR. Continue low-sodium diet. Plan as above. 8. Disposition: Cardiology will continue to follow. Admission and Anticipated Discharge Date Admission Date: April 07, 2025 Subjective Denies angina, shortness of breath, syncope, near syncope, palpitations, or bleeding. She received PRBC x 1 on 04/07/2025. She was seen by GI today with possibility of endoscopy. She was unaccompanied. Physical Exam Physical Exam: Gen.: No acute distress. Alert and oriented. HEENT: Anicteric sclera. Neck: No JVD. No hepatojugular reflux. Cardiac: Regular. Heart rate near 60 bpm. Normal S1-S2. No murmurs, rubs, or gallops. Pulmonary: Clear to auscultation bilaterally without wheezes, rales, or rhonchi. Abdomen: Soft, nontender, nondistended, with normoactive bowel sounds. No bruits noted. Extremities: Right radial pulse nonpalpable. 2+ left radial pulse. 2+ posterior tibialis pulses bilaterally. No edema or cyanosis. s/p bilateral SVG harvest. Results & Data Vital Signs (Past 12 Hours) Vital Signs Temp Pulse Resp BP Pulse Ox O2 Del Method 04/08/25 07:29 36.7 C 59 L 16 138/65 93 Room Air 04/08/25 02:29 36.8 C 60 14 100/55 L 92 Room Air 04/07/25 23:00 36.7 C 60 18 119/53 L 91 Room Air Intake & Output 04/06/25 04/07/25 04/08/25 04/09/25 06:59 06:59 06:59 06:59 Intake Total 2250 / 2250 1088 / 1088 100 / 100 Output Total 50 / 50 1475 / 1475 Balance 2200 / 2200 -387 / -387 100 / 100 Weight 146 lb 6.191 oz 145 lb 1.027 oz Laboratory Results Laboratory Results - last 24 hr 04/06/25 04/07/25 04/07/25 21:50 10:41 11:36 WBC 11.56 H RBC 2.34 L Hgb 7.0 L Hct 21.5 L MCV 91.9 MCH 29.9 MCHC 32.6 RDW Std Deviation 42.7 RDW Coeff of Linette 13.2 Plt Count 353 MPV 9.9 Immature Gran % (Auto) 0.3 Neut % (Auto) 74.0 Lymph % (Auto) 18.3 Edwards % (Auto) 6.1 Eos % (Auto) 1.0 Baso % (Auto) 0.3 Neut # (Auto) 8.56 H Lymph # (Auto) 2.11 Edwards # (Auto) 0.70 H Eos # (Auto) 0.11 Baso # (Auto) 0.04 Immature Gran # (Auto) 0.04 Polychromasia 1+ Sodium 137 Potassium 4.3 Chloride 102 Carbon Dioxide 28 Anion Gap 7 BUN 26 H Creatinine 1.55 H D Est Cr Clr Drug Dosing 28.7 eGFR 35.82 BUN/Creatinine Ratio 16.8 Glucose 176 H POC Glucose 175 H Calcium 8.6 Iron 46 TIBC 218 L Transferrin 156 L Transferrin % Sat 21 Ferritin 1046.0 H Total Bilirubin Direct Bilirubin AST ALT Alkaline Phosphatase Troponin I High Sens 411.9 H* Total Protein Albumin Blood Type O Negative Blood Type Recheck O Negative Antibody Screen NEGATIVE Crossmatch See Detail 04/07/25 04/07/25 04/07/25 16:22 20:20 20:45 WBC RBC Hgb 8.7 L Hct 25.9 L MCV MCH MCHC RDW Std Deviation RDW Coeff of Linette Plt Count MPV Immature Gran % (Auto) Neut % (Auto) Lymph % (Auto) Edwards % (Auto) Eos % (Auto) Baso % (Auto) Neut # (Auto) Lymph # (Auto) Edwards # (Auto) Eos # (Auto) Baso # (Auto) Immature Gran # (Auto) Polychromasia Sodium Potassium Chloride Carbon Dioxide Anion Gap BUN Creatinine Est Cr Clr Drug Dosing eGFR BUN/Creatinine Ratio Glucose POC Glucose 158 H 217 H Calcium Iron TIBC Transferrin Transferrin % Sat Ferritin Total Bilirubin Direct Bilirubin AST ALT Alkaline Phosphatase Troponin I High Sens Total Protein Albumin Blood Type Blood Type Recheck Antibody Screen Crossmatch 04/08/25 04/08/25 06:00 07:33 WBC 10.28 RBC 3.15 L Hgb 9.4 L Hct 28.9 L MCV 91.7 MCH 29.8 MCHC 32.5 RDW Std Deviation 45.9 RDW Coeff of Linette 13.7 Plt Count 398 MPV 9.3 L Immature Gran % (Auto) Neut % (Auto) Lymph % (Auto) Edwards % (Auto) Eos % (Auto) Baso % (Auto) Neut # (Auto) Lymph # (Auto) Edwards # (Auto) Eos # (Auto) Baso # (Auto) Immature Gran # (Auto) Polychromasia Sodium 140 Potassium 4.3 Chloride 104 Carbon Dioxide 31 Anion Gap 5 BUN 25 H Creatinine 1.34 H Est Cr Clr Drug Dosing 33.1 eGFR 42.66 BUN/Creatinine Ratio 18.7 Glucose 144 H POC Glucose 147 H Calcium 9.0 Iron TIBC Transferrin Transferrin % Sat Ferritin Total Bilirubin 0.5 D Direct Bilirubin 0.1 AST 17 ALT 29 Alkaline Phosphatase 207 H Troponin I High Sens Total Protein 5.6 L Albumin 3.2 L Blood Type Blood Type Recheck Antibody Screen Crossmatch Diagnostic Findings Labs reviewed and notable for stable renal function, normal potassium, improved hemoglobin following prbc x 1 transfusion. GI consultation report reviewed. Telemetry personally reviewed: Sinus rhythm near 60 bpm. No arrhythmia. Medications Administered Current Inpatient Medications Acetaminophen (Acetaminophen 500 Mg Tab) 1,000 mg PO TID PRN PRN Reason: Pain Stop: 05/07/25 01:48 Last Admin: 04/07/25 20:35 Dose: 1,000 mg Amiodarone HCl (Amiodarone 200 Mg Tab) 200 mg PO QAM TANYA Stop: 05/08/25 08:59 Last Admin: 04/08/25 10:07 Dose: 200 mg Aspirin (Aspirin 81 Mg Ectab) 81 mg PO DAILY TANYA Stop: 05/07/25 08:59 Last Admin: 04/08/25 09:00 Dose: 81 mg Atorvastatin Calcium (Atorvastatin 40 Mg Tab) 80 mg PO HS TANYA Stop: 05/07/25 20:59 Last Admin: 04/07/25 20:35 Dose: 80 mg Benzonatate (Benzonatate 100 Mg Capsule) 200 mg PO Q12H PRN PRN Reason: cough Stop: 05/07/25 01:48 Last Admin: 04/07/25 20:35 Dose: 200 mg Dextrose (Dextrose 50% 50 Ml Syringe) 25 - 50 ml IV UD PRN; Protocol PRN Reason: Hypoglycemia Protocol Stop: 05/07/25 01:48 Glucagon (Glucagon For Inj 1 Mg Vial) 1 mg SQ UD PRN; Protocol PRN Reason: Hypoglycemia Protocol Stop: 05/07/25 01:48 Glucose (Glucose 40% Gel 15 Gm Tube) 15 - 30 gm PO UD PRN; Protocol PRN Reason: Hypoglycemia Protocol Stop: 05/07/25 01:48 Glucose (Glucose 10 Tab/Tube) 4 - 8 tab PO UD PRN; Protocol PRN Reason: Hypoglycemia Protocol Stop: 05/07/25 01:48 Ceftriaxone Sodium (Rocephin) 1,000 mg in 50 mls @ 100 mls/hr IV Q24H [facility] Stop: 04/12/25 21:59 Last Infusion: 04/07/25 21:37 Dose: Infused Pantoprazole Sodium 40 mg/ (Dextrose) 100 mls @ 20 mls/hr IV Q5H [facility] Stop: 05/07/25 12:29 Last Admin: 04/08/25 10:04 Dose: 8 mg/hr, 20 mls/hr Insulin Aspart (Insulin Aspart Per Unit Charge) 0 units SC Q6 [facility] Stop: 05/08/25 05:59 Last Admin: 04/08/25 06:00 Dose: Not Given Insulin Glargine (Lantus Per Unit Charge) 5 units SQ BID [facility] Stop: 05/07/25 08:59 Last Admin: 04/08/25 09:00 Dose: 5 units Lidocaine (Lidocaine 5% 1 Patch) 1 patch TD QAM PRN PRN Reason: lower extremity pain Stop: 05/07/25 08:59 Metoprolol Succinate (Metoprolol Succ 50mg Ext Rel Tab) 100 mg PO QAM [facility] Stop: 05/08/25 08:59 Last Admin: 04/08/25 10:02 Dose: 100 mg Miscellaneous (Carbohydrates For Hypoglycemia ) 15 - 30 gm PO UD PRN PRN Reason: Hypoglycemia Protocol Stop: 05/07/25 01:48 Miscellaneous (Remove Lidoderm Patch) 1 each N/A DAILY@2100 [facility] Stop: 05/07/25 20:59 Last Admin: 04/07/25 20:36 Dose: 1 each Ondansetron HCl (Ondansetron Inj 2 Mg/Ml 2 Ml Vial) 4 mg IV Q6H PRN PRN Reason: Nausea And Vomiting Stop: 05/07/25 01:48 Last Admin: 04/07/25 09:39 Dose: 4 mg PG Care Time/CCT Total # of Minutes Spent Total Time Spent with Patient: Total time spent is greater than 50% in coordination of care (as documented) at patient's floor/unit and/or counseling patient: Coding Level of Care Code 02182 SUB INP/OBS CARE 3/50MIN Diagnoses Paroxysmal atrial fibrillation I48.0 CAD (coronary artery disease) I25.10 Associated angina: unspecified whether angina present Coronary Disease-Associated Artery/Lesion type: unspecified vessel or lesion type [place] vs. transplanted heart: [place] heart Status post coronary artery bypass graft Z95.1 Cardiomyopathy I42.9 Cardiomyopathy type: unspecified Primary hypertension I10 Hypertension type: primary hypertension Anemia D64.9 Dyslipidemia E78.5 (2) CAD (coronary artery disease) Associated angina: unspecified whether angina present Coronary Disease- Associated Artery/Lesion type: unspecified vessel or lesion type [place] vs. transplanted heart: [place] heart Qualified Code(s): I25.10 - Atherosclerotic heart disease of [place] coronary artery without angina pectoris (4) Cardiomyopathy Cardiomyopathy type: unspecified Qualified Code(s): I42.9 - Cardiomyopathy, unspecified (5) HTN (hypertension) Hypertension type: primary hypertension Qualified Code(s): I10 - Essential (primary) hypertension
--- NOTE | 2025-04-08 16:40 | Billing Data ---
Date of Service April 08, 2025 Coding Level of Care Code 28133 SUB INP/OBS CARE MIN
--- NOTE | 2025-04-08 16:42 | Communication Note ---
Date of Service: April 08, 2025 Called patient's daughter, Cherie Ko ([phone]), discussed concerns with patient returning home. Patient states that she lives in an apartment with 2 stories and lives by herself. Daughter is concerned since, after recent admission to her [facility], she had a SLUMS questionnaire done that revealed a score of 19/30 and was told that her mother may have Alzheimer's dementia. Additionally, nurses from acute rehab facility where patient had been staying also noted the patient having some memory trouble and told the daughter that they believe she should be placed in a nursing facility. Patient evaluated at bedside and deemed to have full capacity for decision making, and she expresses preference to return home after she finishes acute rehab. Discussed with daughter that, since patient had just had a surgical intervention (CABG x 3) a few days before the SLUMS questionnaire was done, and therefore was also on opioid pain medications, that the results of this questionnaire may be skewed by possible underlying delirium in the setting of the beforementioned conditions. Discussed with patient's daughter that ideally, this could be repeated when patient is at her baseline mentation, which will probably happen after she is out of the hospital and following up with her PCP. Patient's daughter concerned since she has noted that her mother's home is full of mold, says that her mother hoards, her bed is broken, and does not believe that she is taking her medications as she is meant to, and believes that she should not be safe to return home. Advised that, since patient has decision-making capacity and she wants to return home, that we cannot send it to a nursing facility if that is not her choice. Discussed other options such as home health, nurse aide to visit patient at home, or situation at home is worrisome could contact office of aging. Patient's daughter expressed understanding of what was discussed. All questions answered.
[2025-04-08] MEDS: CEFEPIME 1000MG 1,000 MG/10 ML SYR IV SCH (18:01)
[2025-04-09] MEDS: INSULIN ASPART PER UNIT CHARGE SC SCH ×2 (05:50→17:03)
--- NOTE | 2025-04-09 06:14 | Electrocardiogram Report ---
Test Reason : Blood Pressure : */* mmHG Vent. Rate : 169 BPM Atrial Rate : * BPM P-R Int : * ms QRS Dur : 90 ms QT Int : 280 ms P-R-T Axes : * 26 182 degrees QTcB Int : 469 ms Atrial fibrillation with rapid ventricular response Low voltage QRS Abnormal ECG When compared with ECG of 25-Aug-2024 14:27, Atrial fibrillation has replaced Sinus rhythm Vent. rate has increased by [address] now depressed in Anterolateral leads Nonspecific T wave abnormality now evident in Inferior leads T wave inversion now evident in Anterolateral leads Confirmed by Ronan Davis ([id number]) on 04/09/2025 6:14:18 AM Referred By: REFERRED SELF Confirmed By: Ronan Davis
--- NOTE | 2025-04-09 06:15 | Electrocardiogram Report ---
Test Reason : Blood Pressure : */* mmHG Vent. Rate : 70 BPM Atrial Rate : 70 BPM P-R Int : 144 ms QRS Dur : 90 ms QT Int : 408 ms P-R-T Axes : -19 5 -21 degrees QTcB Int : 440 ms Normal sinus rhythm Low voltage QRS Nonspecific T wave abnormality When compared with ECG of 06-Apr-2025 21:41, Sinus rhythm has replaced Atrial fibrillation Vent. rate has decreased by [address] no longer depressed in Anterolateral leads T wave inversion no longer evident in Anterolateral leads Confirmed by Ronan Davis ([id number]) on 04/09/2025 6:14:48 AM Referred By: REFERRED SELF Confirmed By: Ronan Davis
[2025-04-09 06:26] LABS: Hematocrit (blood only) 27.7 % (37.0-47.0); Hemoglobin 8.9 g/dl (12.0-16.0); Immature Granulocytes # (auto) 0.03 K/uL (0.01-0.20); Immature Granulocytes % (auto) 0.3 %; Mean Corpuscular Hemoglobin 29.4 pg (25.0-34.0); Mean Corpuscular Volume 91.4 fL (80.0-100.0); Platelet Count 392 K/uL (130-400); RDW Standard Deviation 44.4 fL (36.4-46.3); Red Blood Count 3.03 M/uL (4.20-5.40); White Blood Count 9.66 K/ul (4.8-10.8)
[2025-04-09 06:44] LABS: Anion Gap 5.0 (3-11); Blood Urea Nitrogen 25.0 mg/dl (6-23); Calcium 8.7 mg/dl (8.6-10.3); Carbon Dioxide 30.0 mmol/L (21-32); Chloride 104.0 mmol/L (98-107); Creatinine Clr Calc Pharmacy 36.9 ml/min; Glucose 204.0 mg/dl (70-99(Fasting)); Potassium 4.1 mmol/L (3.5-5.1); Sodium 139.0 mmol/L (136-145)
--- NOTE | 2025-04-09 07:56 | Hospitalist Progress Note ---
Date of Service April 09, 2025 Assessment & Plan (1) Status post coronary artery bypass graft: (2) UTI (urinary tract infection): (3) Hypotension: (4) Atrial fibrillation with rapid ventricular response: (5) CAD (coronary artery disease): Plan 69yo female with history of CAD s/p CABG x 3 on 03/26/2025 presenting with dizziness, palpitations, nausea and vomiting. Found to be in atrial fibrillation with RVR, low blood pressure. #Atrial fibrillation with RVR -no history of prior. Patient has converted to NSR following IV Metoprolol and Amiodarone. Blood pressure has improved. -Admit to PCU, transfer to [facility]-surg -CHADS-VASC score 6 -Previously held anticoagulation due to anemia workup, however will start Eliquis 5mg BID while patient is inpatient and observe for signs of bleeding -Cardiology consultation appreciated: advised Metoprolol 100mg and Amio 200mg daily #Anemia -GI consult appreciated, possible scope most likely outpatient -May be related to recent procedure or lab variation -Hgb 8.8 04/06 --> 7.0 04/07 -1 unit RBCs transfused 04/07, post-transfusion H&H 8.6 -Hgb 8.9 04/09 AM -CT abdomen/pelvis without contrast to evaluate for bleed, unremarkable -Hemoccult stool study ordered and pending -No BM since 3 days ago, ordered Colace BID -Iron studies show elevated TIBC+transferrin, but total iron and %sat WNL -Low suspicion for GI bleed -Per case management, will need at least 2-3 days to re-enter rehab facility, will start Eliquis 5mg BID while patient is inpatient and observe for signs of bleeding #CAD/Elevated troponin - suspect secondary to AF with RVR, low blood pressure -Continue ASA, Atorvastatin, Metoprolol -Trend troponin (125.8, 173, 430, 411), peaked -ECHO shows EF 45-50%, severe L atrial dilation, mild MR #UTI - patient with leukocytosis WBC=16.7 -Follow culture sent from the ER, prelim culture shows +Klebsiella pneumoniae and +Citrobacter freundi complex -Switched from Ceftriaxone to Cefepime on 04/08 -UA 3+LE, >50 WBC, >20 RBC, 4+UB -WBC downtrended to 10.28 on 04/08 #Elevated Cr - -Holding Entresto and Spironolactone -Avoid nephrotoxic agents -Renal dosing where needed -Repeat chemistry in AM #CHF -Hold Entresto and Spironolactone for now -Continue Metoprolol #Hypertension -Continue Metoprolol -Monitor BP #Hyperlipidemia -Continue Atorvastatin #Diabetes -last HgbA1C on 01/14/2025 = 8.1 -Hold Metformin -Lantus 5u BID -Insulin sliding scale Diet: heart healthy, NPO at midnight Code status: full VTE Prophylaxis: compression stockings Dispo: admit Admission and Anticipated Discharge Date Admission Date: April 07, 2025 Supervising Physician Co-Signing Physician Notes I personally examined the patient and verified all guerra points of history and exam, discussed case, and agree with decision making with Dr Camacho no new complaints. feeling about the same. still no noted bloody BM (no BM at all). Vitals noted, in general she is awake and alert pleasant no acute distress does appear fatigued. HEENT normocephalic atraumatic mucous membranes moist. Cardio is now sinus rhythm rate of about 60. Breathing unlabored no ac cessory muscle use good effort. Skin without rashes pallor or icterus. Neuro without focal deficits. Atrial fibrillation with RVRpotentially postoperative A-fib with RVR, complication of care due to recent CABG, but at the same time she has a lot of left atrial enlargement and plenty of reason to have atrial fibrillation just becauseso more than likely the postoperative state and physiologic stress are more the "why now" rather than the true underlying why she had atrial fibrillation to begin with. Continue metoprolol and amiodarone for now, hopefully will be able to maintain rate control just with metoprolol and we can hopefully DC the amiodarone in the near future. clinically no active bleeding; GI does not feel acute scopes warranted. since hemoglobin as a lab value does have a lot of inherent variation/she improved more than would be expected wtih the transfusion/has shown us no active bleeding - i'm getting more and more suspicious that her overall anemia picture relates to CABG/recovery and the "acute drop" may have simply been accentuated lab variation. since no active bleed for days/since we have to "start over" for getting back to SNF with insurance auth that will likely take days - d/w pt risk/benefit and we agreed to start eliquis and follow closely. Anemiastatus post 1 unit transfusion of packed red cellshemodynamically stable hemoglobin has risen quite a bit. The "easy answer" would be related to her recent rather massive surgerysee above, starting to seriously doubt if she ever had true bleeding - follow closely. she agrees w risk/benefits as above otherwise as above Subjective Dinora Ko is a 69yo female with history of DM, HTN, GERD, CAD s/p 3V CABG performed at [facility] on March 26, 2025. Patient denies CP, SOB, N/V, fevers, chills, lightheadedness. Last BM was 3 days ago, denies blood in bowel movement. Expressed some concern regarding situation with daughter. No other acute mary rns. Review of Systems Constitutional: as per Subjective / HPI Physical Exam Constitutional: WD/WN, vitals as above Respiratory: normal respiratory effort, lungs clear to auscultation Cardiovascular: RRR, no murmur, no edema Gastrointestinal (Abdomen): normal bowel sounds, soft, nontender, no hepatosplenomegaly Skin: no rashes, warm and dry Psychiatric: A+Ox3, euthymic affect Results & Data Results & Data Vital Signs (Past 12 Hours) Vital Signs Temp Pulse Pulse Resp BP Pulse Ox O2 Del Method 04/09/25 07:27 60 04/09/25 02:39 37.3 C 60 16 112/52 L 93 Room Air 04/08/25 22:50 37.5 C 61 20 126/53 L 93 Room Air 04/08/25 21:48 62 Resident Activity Tracking Resident Involvement: Resident Care Provided Care Provided: Adult Hospital Medicine (3) Hypotension Hypotension type: unspecified hypotension type Qualified Code(s): I95.9 - Hypotension, unspecified (5) CAD (coronary artery disease) Associated angina: unspecified whether angina present Coronary Disease- Associated Artery/Lesion type: unspecified vessel or lesion type [place] vs. transplanted heart: [place] heart Qualified Code(s): I25.10 - Atherosclerotic heart disease of [place] coronary artery without angina pectoris
[2025-04-09] MEDS: POLYETHYLENE (MIRALAX) 17 GM PACK PO SCH (08:37)
[2025-04-09] MEDS ORDERED: POLYETHYLENE (MIRALAX) 17 GM PACK PO SCH (09:00)
--- NOTE | 2025-04-09 10:11 | Gastroenterology Progress Note ---
Date of Service April 09, 2025 Assessment & Plan (1) Anemia: Plan: 69 year old female w/ history of CAD s/p CABG x 3 on 03/26/2025 presenting with dizziness, palpitations, nausea and vomiting admitted w/ atrial fibrillation with RVR - GI was asked to evaluate for anemia w/o signs of active GI bleeding. Yet to move her stools. No signs of active GI bleeding. HGB 8.9 s/p 1 unit RBCs. Follow Hemoccult. We discussed EGD/Colonoscopy at bedside. Will discuss timing w/ attending. Trend H&H. Monitor and document output. Transfuse PRN per primary team. May continue PPI. I spent a total of 40 minutes on the date of service in review of patient's record, and previously obtained information in person and appropriate medical visit, discussion and education of plan, with patient and/or caregiver, placing orders for tests/referral/procedures as medically necessary and documentation of pertinent clinical information in patient's medical records for their visit today. Admission and Anticipated Discharge Date Admission Date: April 07, 2025 Supervising Physician Co-Signing Physician Notes I saw and examined this patient with our nurse practitioner and agree with her assessment and plan. No signs of GI blood loss. Unable to obtain stool sample for FOBT. Will iron studies and lack of evidence of GI bleeding at this point would recommend outpatient follow-up and evaluation. Once discharged we can arrange for her to follow-up with us in the office. Subjective No BM since admission. No abd pain, nausea/vomiting. Review of Systems Review of Systems: All other findings negative except as noted in HPI. Physical Exam Constitutional: WD/WN, vitals as above Respiratory: normal respiratory effort Cardiovascular: Rate/Rhythm: regular rate Gastrointestinal (Abdomen): Inspection/Auscultation: normal bowel sounds Skin: no rashes, warm and dry Results & Data Results & Data Vital Signs (Past 12 Hours) Vital Signs Temp Pulse Pulse Resp BP Pulse Ox O2 Del Method 04/09/25 09:24 98.1 F 60 18 135/74 95 Room Air 04/09/25 07:27 60 04/09/25 02:39 99.1 F 60 16 112/52 L 93 Room Air 04/08/25 22:50 99.5 F 61 20 126/53 L 93 Room Air Laboratory Results 04/09/25 04/09/25 04/08/25 Range/Units 06:05 05:45 20:24 WBC 9.66 (4.8-10.8) K/ul RBC 3.03 L (4.20-5.40) M/uL Hgb 8.9 L (12.0-16.0) g/dl Hct 27.7 L (37.0-47.0) % MCV 91.4 (80.0-100.0) fL MCH 29.4 (25.0-34.0) pg MCHC 32.1 (32.0-36.0) g/dL RDW Std Deviation 44.4 (36.4-46.3) fL RDW Coeff of Lin[place] 13.4 (11.5-14.5) % Plt Count 392 (130-400) K/uL MPV 9.1 L (9.4-12.4) fL Immature Gran % (Auto) 0.3 % Neut % (Auto) 66.8 % Lymph % (Auto) 20.6 % [place] % (Auto) 9.1 % Eos % (Auto) 2.7 % Baso % (Auto) 0.5 % Neut # (Auto) 6.45 (1.40-6.50) K/uL Lymph # (Auto) 1.99 (1.20-3.40) K/uL [place] # (Auto) 0.88 H (0.11-0.59) K/uL Eos # (Auto) 0.26 (0.00-0.50) K/uL Baso # (Auto) 0.05 (0.00-0.20) K/uL Immature Gran # (Auto) 0.03 (0.01-0.20) K/uL Sodium 139 (136-145) mmol/L Potassium 4.1 (3.5-5.1) mmol/L Chloride 104 (98-107) mmol/L Carbon Dioxide 30 (21-32) mmol/L Anion Gap 5 (3-11) BUN 25 H (6-23) mg/dl Creatinine 1.20 (0.6-1.2) mg/dl Est Cr Clr Drug Dosing 36.9 ml/min eGFR 48.70 BUN/Creatinine Ratio 20.8 H (10-20) Glucose 204 H (70-99(Fasting)) mg/dl POC Glucose 185 H 150 H (70-99) mg/dl Calcium 8.7 (8.6-10.3) mg/dl 04/08/25 04/08/25 Range/Units 16:08 11:36 WBC (4.8-10.8) K/ul RBC (4.20-5.40) M/uL Hgb (12.0-16.0) g/dl Hct (37.0-47.0) % MCV (80.0-100.0) fL MCH (25.0-34.0) pg MCHC (32.0-36.0) g/dL RDW Std Deviation (36.4-46.3) fL RDW Coeff of Linette (11.5-14.5) % Plt Count (130-400) K/uL MPV (9.4-12.4) fL Immature Gran % (Auto) % Neut % (Auto) % Lymph % (Auto) % [place] % (Auto) % Eos % (Auto) % Baso % (Auto) % Neut # (Auto) (1.40-6.50) K/uL Lymph # (Auto) (1.20-3.40) K/uL [place] # (Auto) (0.11-0.59) K/uL Eos # (Auto) (0.00-0.50) K/uL Baso # (Auto) (0.00-0.20) K/uL Immature Gran # (Auto) (0.01-0.20) K/uL Sodium (136-145) mmol/L Potassium (3.5-5.1) mmol/L Chloride (98-107) mmol/L Carbon Dioxide (21-32) mmol/L Anion Gap (3-11) BUN (6-23) mg/dl Creatinine (0.6-1.2) mg/dl Est Cr Clr Drug Dosing ml/min eGFR BUN/Creatinine Ratio (10-20) Glucose (70-99(Fasting)) mg/dl POC Glucose 97 132 H (70-99) mg/dl Calcium (8.6-10.3) mg/dl PG Care Time/CCT Total # of Minutes Spent Total Time Spent with Patient: Total time spent is greater than 50% in coordination of care (as documented) at patient's floor/unit and/or counseling patient: Coding Level of Care Code 15973 SUB INP/OBS CARE MIN Diagnoses Anemia D64.9
[2025-04-09] MEDS: DOCUSATE SODIUM SYRUP 100 MG/10 ML UDC PO STA (10:24)
--- NOTE | 2025-04-09 15:08 | Cardiology Progress Note ---
Date of Service April 09, 2025 Assessment & Plan (1) Paroxysmal atrial fibrillation: (2) CAD (coronary artery disease): (3) Status post coronary artery bypass graft: (4) Cardiomyopathy: (5) HTN (hypertension): (6) Anemia: (7) Dyslipidemia: Plan ASSESSMENT/PLAN: 1. Paroxysmal atrial fibrillation: Mildly symptomatic with palpitations however significantly hypotensive while in A-fib with RVR. Converted after IV amiodarone. Amiodarone 200 mg p.o. daily started on 04/08/2025 after reducing metoprolol succinate from 200 mg to 100 mg daily. Monitor TSH and transaminase levels while on amiodarone. This could still be due to postoperative A-fib from CABG or also related to her acute GI presentation. Would recommend anticoagulation therapy if safe/no contraindication, however she is being evaluated for anemia. 2. CAD s/p CABG x 3: No angina. LV systolic function stable. Continue to follow-up with CT surgery at [facility] [place] postoperatively. Cardiac rehab when able from a CT surgery standpoint. Continue aspirin 81 mg daily if no contraindication. Continue high intensity statin therapy and beta-ilan. 3. Heart failure with mildly reduced EF: She appears euvolemic. Resume Entresto (currently held by hospitalist service in the setting of anemia and acute renal insufficiency) when able. Can start at lower dose and titrate upward as tolerated. Can resume spironolactone in the future, if no contraindication. Has used Lasix 20 mg on an as-needed basis in the outpatient setting and currently euvolemic. Continue metoprolol succinate as above. 4. Cardiomyopathy: Has known ischemic heart disease. Cannot exclude myocarditis with URI weeks before her diagnosis. LV systolic function only mildly reduced. Continue to monitor in the outpatient setting. ICD for primary prevention is not indicated. Continue medical therapy. 5. Dyslipidemia: Continue high intensity statin therapy. 6. Anemia: Received PRBC x 1 on 04/07/2025. GI following. 7. Hypertension: Blood pressure is well-controlled but was hypotensive while in afib with RVR. Continue low-sodium diet. Plan as above. 8. Disposition: Plan of care communicated with Dr. Jackson of the primary hospitalist service. Please call with further questions or concerns. Admission and Anticipated Discharge Date Admission Date: April 07, 2025 Subjective She denies chest pain, shortness of breath, palpitations, syncope, near syncope, or bleeding such as melena, hematochezia, or hematuria. She was unaccompanied. Physical Exam Physical Exam: Gen.: No acute distress. Alert and oriented. HEENT: Anicteric sclera. Neck: No JVD. No hepatojugular reflux. Cardiac: Regular. No ectopy. Normal S1-S2. No murmurs, rubs, or gallops. Pulmonary: Clear to auscultation bilaterally without wheezes, rales, or rhonchi. Abdomen: Soft, nontender, nondistended, with normoactive bowel sounds. No bruits noted. Extremities: Right radial pulse nonpalpable. 2+ left radial pulse. 2+ posterior tibialis pulses bilaterally. No edema or cyanosis. s/p bilateral SVG harvest. Results & Data Vital Signs (Past 12 Hours) Vital Signs Temp Pulse Pulse Resp BP Pulse Ox O2 Del Method 04/09/25 12:56 36.6 C 62 18 129/73 95 Room Air 04/09/25 09:24 36.7 C 60 18 135/74 95 Room Air 04/09/25 07:27 60 Intake & Output 04/07/25 04/08/25 04/09/25 04/10/25 06:59 06:59 06:59 06:59 Intake Total 2250 / 2250 1088 / 1088 741.333 / 741.333 93 / 93 Output Total 50 / 50 1475 / 1475 1650 / 1650 725 / 725 Balance 2200 / 2200 -387 / -387 -908.667 / -908.667 -632 / -632 Weight 146 lb 6.191 oz 145 lb 1.027 oz Laboratory Results Laboratory Results - last 24 hr 04/08/25 04/08/25 04/09/25 16:08 20:24 05:45 WBC RBC Hgb Hct MCV MCH MCHC RDW Std Deviation RDW Coeff of Linette Plt Count MPV Immature Gran % (Auto) Neut % (Auto) Lymph % (Auto) [place] % (Auto) Eos % (Auto) Baso % (Auto) Neut # (Auto) Lymph # (Auto) [place] # (Auto) Eos # (Auto) Baso # (Auto) Immature Gran # (Auto) Sodium Potassium Chloride Carbon Dioxide Anion Gap BUN Creatinine Est Cr Clr Drug Dosing eGFR BUN/Creatinine Ratio Glucose POC Glucose 97 150 H 185 H Calcium 04/09/25 04/09/25 06:05 11:28 WBC 9.66 RBC 3.03 L Hgb 8.9 L Hct 27.7 L MCV 91.4 MCH 29.4 MCHC 32.1 RDW Std Deviation 44.4 RDW Coeff of Linette 13.4 Plt Count 392 MPV 9.1 L Immature Gran % (Auto) 0.3 Neut % (Auto) 66.8 Lymph % (Auto) 20.6 [place] % (Auto) 9.1 Eos % (Auto) 2.7 Baso % (Auto) 0.5 Neut # (Auto) 6.45 Lymph # (Auto) 1.99 [place] # (Auto) 0.88 H Eos # (Auto) 0.26 Baso # (Auto) 0.05 Immature Gran # (Auto) 0.03 Sodium 139 Potassium 4.1 Chloride 104 Carbon Dioxide 30 Anion Gap 5 BUN 25 H Creatinine 1.20 Est Cr Clr Drug Dosing 36.9 eGFR 48.70 BUN/Creatinine Ratio 20.8 H Glucose 204 H POC Glucose 190 H Calcium 8.7 Diagnostic Findings Telemetry personally reviewed: Sinus rhythm. 4 beat ventricular run, but not tachycardic. Chart reviewed. Labs reviewed from 04/09/2025: Improved renal function, normal potassium, relatively stable hemoglobin. Medications Administered Current Inpatient Medications Acetaminophen (Acetaminophen 500 Mg Tab) 1,000 mg PO TID PRN PRN Reason: Pain Stop: 05/07/25 01:48 Last Admin: 04/09/25 11:59 Dose: 1,000 mg Amiodarone HCl ([facility] 200 Mg Tab) [facility] Stop: 05/08/25 08:59 Last Admin: 04/09/25 08:46 Dose: 200 mg Aspirin (Aspirin 81 Mg Ectab) 81 mg PO DAILY [facility] Stop: 05/07/25 08:59 Last Admin: 04/09/25 08:37 Dose: Not Given Atorvastatin Calcium (Atorvastatin 40 Mg Tab) 80 mg PO HS [facility] Stop: 05/07/25 20:59 Last Admin: 04/08/25 20:31 Dose: 80 mg Benzonatate (Benzonatate 100 Mg Capsule) 200 mg PO Q12H PRN PRN Reason: cough Stop: 05/07/25 01:48 Last Admin: 04/08/25 20:30 Dose: 200 mg Dextrose (Dextrose 50% 50 Ml Syringe) 25 - 50 ml IV UD PRN; Protocol PRN Reason: Hypoglycemia Protocol Stop: 05/07/25 01:48 Docusate Sodium (Docusate Sodium 100 Mg Cap) 100 mg PO BID [facility] Stop: 05/09/25 20:59 Glucagon (Glucagon For Inj 1 Mg Vial) 1 mg SQ UD PRN; Protocol PRN Reason: Hypoglycemia Protocol Stop: 05/07/25 01:48 Glucose (Glucose 40% Gel 15 Gm Tube) 15 - 30 gm PO UD PRN; Protocol PRN Reason: Hypoglycemia Protocol Stop: 05/07/25 01:48 Glucose (Glucose 10 Tab/Tube) 4 - 8 tab PO UD PRN; Protocol PRN Reason: Hypoglycemia Protocol Stop: 05/07/25 01:48 Pantoprazole Sodium 40 mg/ (Dextrose) 100 mls @ 20 mls/hr IV Q5H [facility] Stop: 05/07/25 12:29 Last Admin: 04/09/25 10:26 Dose: 8 mg/hr, 20 mls/hr Cefepime HCl (Maxipime 2000mg) 1,000 mg in 10 mls @ 5 mls/min IV Q12H TANYA; Protocol Stop: 04/13/25 16:59 Last Admin: 04/09/25 05:47 Dose: 5 mls/min Insulin Aspart (Insulin Aspart Per Unit Charge) 0 units SC Q6 [facility]ANYA Stop: 05/09/25 05:59 Last Admin: 04/09/25 11:59 Dose: 1 units Insulin Glargine (Lantus Per Unit Charge) 5 units SQ BID [facility] Stop: 05/07/25 08:59 Last Admin: 04/09/25 08:45 Dose: 5 units Lidocaine (Lidocaine 5% 1 Patch) 1 patch TD QAM PRN PRN Reason: lower extremity pain Stop: 05/07/25 08:59 Metoprolol Succinate (Metoprolol Succ 50mg Ext Rel Tab) 100 mg PO QAM [facility] Stop: 05/08/25 08:59 Last Admin: 04/09/25 08:45 Dose: 100 mg Miscellaneous (Carbohydrates For Hypoglycemia ) 15 - 30 gm PO UD PRN PRN Reason: Hypoglycemia Protocol Stop: 05/07/25 01:48 Miscellaneous (Remove Lidoderm Patch) 1 each N/A DAILY@2100 [facility]ANY[facility] Stop: 05/07/25 20:59 Last Admin: 04/08/25 20:33 Dose: 1 each Ondansetron HCl (Ondansetron Inj 2 Mg/Ml 2 Ml Vial) 4 mg IV Q6H PRN PRN Reason: Nausea And Vomiting Stop: 05/07/25 01:48 Last Admin: 04/07/25 09:39 Dose: 4 mg PG Care Time/CCT Total # of Minutes Spent Total Time Spent with Patient: Total time spent is greater than 50% in coordination of care (as documented) at patient's floor/unit and/or counseling patient: Coding Level of Care Code 47659 SUB INP/OBS CARE 3/50MIN Diagnoses Paroxysmal atrial fibrillation I48.0 CAD (coronary artery disease) I25.10 Associated angina: unspecified whether angina present Coronary Disease-Associated Artery/Lesion type: unspecified vessel or lesion type [place] vs. transplanted heart: [place] heart Status post coronary artery bypass graft Z95.1 Cardiomyopathy I42.9 Cardiomyopathy type: unspecified Primary hypertension I10 Hypertension type: primary hypertension Anemia D64.9 Dyslipidemia E78.5 (2) CAD (coronary artery disease) Associated angina: unspecified whether angina present Coronary Disease- Associated Artery/Lesion type: unspecified vessel or lesion type [place] vs. transplanted heart: [place] heart Qualified Code(s): I25.10 - Atherosclerotic heart disease of [place] coronary artery without angina pectoris (4) Cardiomyopathy Cardiomyopathy type: unspecified Qualified Code(s): I42.9 - Cardiomyopathy, unspecified (5) HTN (hypertension) Hypertension type: primary hypertension Qualified Code(s): I10 - Essential (primary) hypertension
--- NOTE | 2025-04-09 17:32 | Billing Data ---
Date of Service April 09, 2025 Coding Level of Care Code 41359 SUB INP/OBS CARE MIN
[2025-04-09] MEDS: DOCUSATE SODIUM 100 MG CAP PO SCH (20:33)
[2025-04-09] MEDS: VALSARTAN/SACUBITRIL 26/24MG TAB PO SCH (20:33)
[2025-04-09] MEDS: APIXABAN 5 MG TABLET PO SCH (20:34)
[2025-04-10 06:21] LABS: Hematocrit (blood only) 29.2 % (37.0-47.0); Hemoglobin 9.8 g/dl (12.0-16.0); Immature Granulocytes # (auto) 0.03 K/uL (0.01-0.20); Immature Granulocytes % (auto) 0.4 %; Mean Corpuscular Hemoglobin 30.6 pg (25.0-34.0); Mean Corpuscular Volume 91.3 fL (80.0-100.0); Platelet Count 416 K/uL (130-400); RDW Standard Deviation 43.1 fL (36.4-46.3); Red Blood Count 3.20 M/uL (4.20-5.40); White Blood Count 8.51 K/ul (4.8-10.8)
[2025-04-10 06:41] LABS: Anion Gap 5.0 (3-11); Blood Urea Nitrogen 21.0 mg/dl (6-23); Calcium 8.7 mg/dl (8.6-10.3); Carbon Dioxide 31.0 mmol/L (21-32); Chloride 104.0 mmol/L (98-107); Creatinine Clr Calc Pharmacy 43.8 ml/min; Glucose 191.0 mg/dl (70-99(Fasting)); Potassium 3.8 mmol/L (3.5-5.1); Sodium 140.0 mmol/L (136-145)
--- NOTE | 2025-04-10 07:08 | Gastroenterology Progress Note ---
Date of Service April 10, 2025 Assessment & Plan (1) Anemia: Plan: Rectal exam revealed Hemoccult negative stool brown. With normal iron studies no overt GI bleeding and Hemoccult negative stool nothing to support GI blood loss. Recommend hematology evaluation to rule out other causes for her anemia. Admission and Anticipated Discharge Date Admission Date: April 07, 2025 Subjective Resting comfortably denies chest pain shortness of breath or abdominal pain. No bowel movements since admission. Physical Exam Physical Exam: No acute distress Respiratory rate regular Cardiac rhythm regular Abdomen soft nontender Rectal exam Brown stool heme-negative Results & Data Results & Data Vital Signs (Past 12 Hours) Vital Signs Temp Pulse Resp BP Pulse Ox O2 Del Method 04/09/25 23:04 Room Air 04/09/25 23:04 36.6 C 62 18 113/64 91 Room Air 04/09/25 20:21 37.3 C 62 18 107/76 93 Room Air PG Care Time/CCT Total # of Minutes Spent Total Time Spent with Patient: Total time spent is greater than 50% in coordination of care (as documented) at patient's floor/unit and/or counseling patient: Coding Level of Care Code 48983 SUB INP/OBS CARE 2/35MIN Diagnoses Anemia D64.9
--- NOTE | 2025-04-10 08:45 | Hospitalist Progress Note ---
Date of Service April 10, 2025 Assessment & Plan (1) Status post coronary artery bypass graft: (2) UTI (urinary tract infection): (3) Hypotension: (4) Atrial fibrillation with rapid ventricular response: (5) CAD (coronary artery disease): Plan 69yo female with history of CAD s/p CABG x 3 on 03/26/2025 presenting with dizziness, palpitations, nausea and vomiting. Found to be in atrial fibrillation with RVR, low blood pressure. #Atrial fibrillation with RVR -no history of prior. Patient has converted to NSR following IV Metoprolol and Amiodarone. Blood pressure has improved. -[facility] -CHADS-VASC score 6 - on Eliquis 5mg BID, will observe for signs of bleeding -Cardiology consultation appreciated: advised Metoprolol 100mg and Amio 200mg daily #Anemia -GI consult appreciated, possible scope most likely outpatient -May be related to recent procedure or lab variation -Hgb 8.8 04/06 --> 7.0 04/07 -1 unit RBCs transfused 04/07, post-transfusion H&H 8.6 -Hgb 9.8 04/10 AM -CT abdomen/pelvis without contrast to evaluate for bleed, unremarkable -GI team TERI Hemooccult test negative -No BM since admission, Colace BID -Iron studies show elevated TIBC+transferrin, but total iron and %sat WNL -Low suspicion for GI bleed -Per case management, will need few days to re-enter rehab facility, will start Eliquis 5mg BID while patient is inpatient and observe for signs of bleeding #CAD/Elevated troponin - suspect secondary to AF with RVR, low blood pressure -Continue ASA, Atorvastatin, Metoprolol -Trend troponin (125.8, 173, 430, 411), peaked -ECHO shows EF 45-50%, severe L atrial dilation, mild MR #UTI - patient with leukocytosis WBC=16.7 -Follow culture sent from the ER, prelim culture shows +Klebsiella pneumoniae and +Citrobacter freundi complex -Switched from Ceftriaxone to Cefepime on 04/08 -UA 3+LE, >50 WBC, >20 RBC, 4+UB -WBC downtrended to 8.51 on 04/08 #Elevated Cr - -Holding Entresto and Spironolactone -Avoid nephrotoxic agents -Renal dosing where needed -Repeat chemistry in AM #CHF -Hold Entresto and Spironolactone for now -Continue Metoprolol #Hypertension -Continue Metoprolol -Monitor BP #Hyperlipidemia -Continue Atorvastatin #Diabetes -last HgbA1C on 01/14/2025 = 8.1 -Hold Metformin -Lantus 5u BID -Insulin sliding scale Diet: heart healthy, NPO at midnight Code status: full VTE Prophylaxis: compression stockings Dispo: admit Admission and Anticipated Discharge Date Admission Date: April 07, 2025 Supervising Physician Co-Signing Physician Notes I personally examined the patient and verified all guerra points of history and exam, discussed case, and agree with decision making with Dr Camacho feeling good overall. getting around better. stool was heme negative. Vitals noted, in general she is awake and alert pleasant no acute distress does appear fatigued. HEENT normocephalic atraumatic mucous membranes moist. Cardio is now sinus rhythm rate of about 60. Breathing unlabored no accessory muscle use good effort. Skin without rashes pallor or icterus. Neuro without focal deficits. Atrial fibrillation with RVRpotentially postoperative A-fib with RVR, complication of care due to recent CABG, but at the same time she has a lot of left atrial enlargement and plenty of reason to have atrial fibrillation just becauseso more than likely the postoperative state and physiologic stress are more the "why now" rather than the true underlying why she had atrial fibrillation to begin with. Continue metoprolol and amiodarone for now, hopefully will be able to maintain rate control just with metoprolol and we can hopefully DC the amiodarone in the near future. clinically no active bleeding; GI does not feel acute scopes warranted. stool heme negative. tolerating eliquis well. Anemiastatus post 1 unit transfusion of packed red cellshemodynamically stable hemoglobin has risen quite a bit. The "easy answer" would be related to her recent rather massive surgery doubt if she ever had true bleeding - follow closely. tolerating eliquis well. otherwise as above Subjective Dinora Ko is a 69yo female with history of DM, HTN, GERD, CAD s/p 3V CABG performed at [facility] [place] on [place] 26, 2025. Patient denies CP, SOB, N/V, fevers, chills, lightheadedness. She has not had a BM since admission. No acute concerns. Review of Systems Constitutional: as per Subjective / HPI Physical Exam Constitutional: WD/WN, vitals as above Respiratory: normal respiratory effort, lungs clear to auscultation Cardiovascular: RRR, no murmur, no edema Gastrointestinal (Abdomen): normal bowel sounds, soft, nontender, no hepa tosplenomegaly Skin: no rashes, warm and dry Psychiatric: A+Ox3, euthymic affect Results & Data Results & Data Vital Signs (Past 12 Hours) Vital Signs Temp Pulse Resp BP Pulse Ox O2 Del Method 04/10/25 07:55 36.6 C 60 15 127/77 95 Room Air 04/09/25 23:04 Room Air 04/09/25 23:04 36.6 C 62 18 113/64 91 Room Air Resident Activity Tracking Resident Involvement: Resident Care Provided Care Provided: Adult Hospital Medicine (3) Hypotension Hypotension type: unspecified hypotension type Qualified Code(s): I95.9 - Hypotension, unspecified (5) CAD (coronary artery disease) Associated angina: unspecified whether angina present Coronary Disease- Associated Artery/Lesion type: unspecified vessel or lesion type [place] vs. transplanted heart: [place] heart Qualified Code(s): I25.10 - Atherosclerotic heart disease of [place] coronary artery without angina pectoris
--- NOTE | 2025-04-10 18:03 | Billing Data ---
Date of Service April 10, 2025 Coding Level of Care Code 21552 SUB INP/OBS CARE MIN
[2025-04-10] MEDS: MELATONIN 3 MG TAB PO PRN (21:55)
[2025-04-11 06:16] LABS: Hematocrit (blood only) 28.7 % (37.0-47.0); Hemoglobin 9.6 g/dl (12.0-16.0); Immature Granulocytes # (auto) 0.03 K/uL (0.01-0.20); Immature Granulocytes % (auto) 0.3 %; Mean Corpuscular Hemoglobin 30.1 pg (25.0-34.0); Mean Corpuscular Volume 90.0 fL (80.0-100.0); Platelet Count 467 K/uL (130-400); RDW Standard Deviation 43.5 fL (36.4-46.3); Red Blood Count 3.19 M/uL (4.20-5.40); White Blood Count 9.25 K/ul (4.8-10.8)
[2025-04-11 06:32] LABS: Anion Gap 5.0 (3-11); Blood Urea Nitrogen 19.0 mg/dl (6-23); Calcium 8.7 mg/dl (8.6-10.3); Carbon Dioxide 29.0 mmol/L (21-32); Chloride 106.0 mmol/L (98-107); Creatinine Clr Calc Pharmacy 51.8 ml/min; Glucose 160.0 mg/dl (70-99(Fasting)); Potassium 3.9 mmol/L (3.5-5.1); Sodium 140.0 mmol/L (136-145)
--- NOTE | 2025-04-11 09:23 | Hospitalist Progress Note ---
Date of Service April 11, 2025 Assessment & Plan (1) Status post coronary artery bypass graft: (2) UTI (urinary tract infection): (3) Hypotension: (4) Atrial fibrillation with rapid ventricular response: (5) CAD (coronary artery disease): Plan 69yo female with history of CAD s/p CABG x 3 on 03/26/2025 presenting with dizziness, palpitations, nausea and vomiting. Found to be in atrial fibrillation with RVR, low blood pressure. #Atrial fibrillation with RVR -no history of prior. Patient has converted to NSR following IV Metoprolol and Amiodarone. Blood pressure has improved. -Admit to PCU, transferred to [facility]-surg -CHADS-VASC score 6 - on Eliquis 5mg BID, will observe for signs of bleeding, tolerating well -Cardiology consultation appreciated: advised Metoprolol 100mg and Amio 200mg daily #Anemia -GI consult appreciated, scope most likely outpatient -May be related to recent procedure or lab variation -Hgb 8.8 04/06 --> 7.0 04/07 -1 unit RBCs transfused 04/07, post-transfusion H&H 8.6 -Hgb 9.8 04/10 AM -CT abdomen/pelvis without contrast to evaluate for bleed, unremarkable -GI team TERI Hemooccult test negative -Iron studies show elevated TIBC+transferrin, but total iron and %sat WNL -Low suspicion for GI bleed -Per case management, will need few days to re-enter rehab facility, will start Eliquis 5mg BID while patient is inpatient and observe for signs of bleeding, tolerating well #Constipation - No bowel movement since admission, patient is comfortable - Colace 100mg PO BID - Senokot 17.2 mg PO QAM #CAD/Elevated troponin - suspect secondary to AF with RVR, low blood pressure -Continue ASA, Atorvastatin, Metoprolol -Trend troponin (125.8, 173, 430, 411), peaked -ECHO shows EF 45-50%, severe L atrial dilation, mild MR #UTI - patient with leukocytosis WBC=16.7 -Follow culture sent from the ER, prelim culture shows +Klebsiella pneumoniae and +Citrobacter freundi complex -Switched from Ceftriaxone to Cefepime on 04/08 -UA 3+LE, >50 WBC, >20 RBC, 4+UB -WBC downtrended to 8.51 on 04/08 - D/c templeton catheter 04/11 #Elevated Cr - -Holding Entresto and Spironolactone -Avoid nephrotoxic agents -Renal dosing where needed -Repeat chemistry in AM #CHF -Hold Entresto and Spironolactone for now -Continue Metoprolol #Hypertension -Continue Metoprolol -Monitor BP #Hyperlipidemia -Continue Atorvastatin #Diabetes -last HgbA1C on 01/14/2025 = 8.1 -Hold Metformin -Lantus 5u BID -Insulin sliding scale Diet: heart healthy Code status: full VTE Prophylaxis: compression stockings Dispo: admit Admission and Anticipated Discharge Date Admission Date: April 07, 2025 Supervising Physician Co-Signing Physician Notes I personally examined the patient and verified all guerra points of history and exam, discussed case, and agree with decision making with Dr Camacho feeling good overall. walked halls some wtih PT. Vitals noted, in general she is awake and alert pleasant no acute distress does appear fatigued. HEENT normocephalic atraumatic mucous membranes moist. Cardio is now sinus rhythm rate of about 60. Breathing unlabored no accessory muscle use good effort. Skin without rashes pallor or icterus. Neuro without focal deficits. Atrial fibrillation with RVRpotentially postoperative A-fib with RVR, complication of care due to recent CABG, but at the same time she has a lot of left atrial enlargement and plenty of reason to have atrial fibrillation just becauseso more than likely the postoperative state and physiologic stress are more the "why now" rather than the true underlying why she had atrial fibrillation to begin with. Continue metoprolol and amiodarone for now, hopefully will be able to maintain rate control just with metoprolol and we can hopefully DC the amiodarone in the near future. clinically no active bleeding; GI does not feel acute scopes warranted. stool heme negative. tolerating eliquis well. continue current care Anemiastatus post 1 unit transfusion of packed red cellshemodynamically stable hemoglobin has risen quite a bit. The "easy answer" would be related to her recent rather massive surgery doubt if she ever had true bleeding - follow closely. tolerating eliquis well. Hgb has been stable otherwise as above Subjective Dinora Ko is a 69yo female with history of DM, HTN, GERD, CAD s/p 3V CABG performed at [facility] [place] [place] on March 26, 2025. Denies SOB, CP, AP. She had some trouble sleeping, but otherwise is doing well. No BM since admission. Review of Systems Constitutional: as per Subjective / HPI Physical Exam Constitutional: WD/WN, vitals as above Respiratory: normal respiratory effort, lungs clear to auscultation Cardiovascular: RRR, no murmur, no edema Gastrointestinal (Abdomen): normal bowel sounds, soft, nontender, no hepatosplenomegaly Skin: no rashes, warm and dry Psychiatric: A+Ox3, euthymic affect Results & Data Results & Data Vital Signs (Past 12 Hours) Vital Signs Temp Pulse Resp BP Pulse Ox O2 Del Method 04/11/25 07:48 36.7 C 62 16 125/70 95 Room Air Resident Activity Tracking Resident Involvement: Resident Care Provided Care Provided: Adult Hospital Medicine (3) Hypotension Hypotension type: unspecified hypotension type Qualified Code(s): I95.9 - Hypotension, unspecified (5) CAD (coronary artery disease) Associated angina: unspecified whether angina present Coronary Disease- Associated Artery/Lesion type: unspecified vessel or lesion type [place] vs. transplanted heart: [place] heart Qualified Code(s): I25.10 - Atherosclerotic heart disease of [place] coronary artery without angina pectoris
--- NOTE | 2025-04-11 12:47 | Billing Data ---
Date of Service April 11, 2025 Coding Level of Care Code 72507 SUB INP/OBS CARE
[2025-04-11] MEDS: SENNA 8.6 MG TAB PO SCH (13:03)
[2025-04-12 06:57] LABS: Hematocrit (blood only) 30.1 % (37.0-47.0); Hemoglobin 10.0 g/dl (12.0-16.0); Immature Granulocytes # (auto) 0.02 K/uL (0.01-0.20); Immature Granulocytes % (auto) 0.3 %; Mean Corpuscular Hemoglobin 30.1 pg (25.0-34.0); Mean Corpuscular Volume 90.7 fL (80.0-100.0); Platelet Count 481 K/uL (130-400); RDW Standard Deviation 43.8 fL (36.4-46.3); Red Blood Count 3.32 M/uL (4.20-5.40); White Blood Count 7.85 K/ul (4.8-10.8)
[2025-04-12 07:17] LABS: Anion Gap 6.0 (3-11); Blood Urea Nitrogen 19.0 mg/dl (6-23); Calcium 8.9 mg/dl (8.6-10.3); Carbon Dioxide 31.0 mmol/L (21-32); Chloride 105.0 mmol/L (98-107); Creatinine Clr Calc Pharmacy 48.4 ml/min; Glucose 140.0 mg/dl (70-99(Fasting)); Potassium 3.9 mmol/L (3.5-5.1); Sodium 142.0 mmol/L (136-145)
[2025-04-12 07:45] VITALS: RESP 16
--- NOTE | 2025-04-12 09:38 | Hospitalist Progress Note ---
Date of Service April 12, 2025 Assessment & Plan (1) Status post coronary artery bypass graft: (2) UTI (urinary tract infection): (3) Hypotension: (4) Atrial fibrillation with rapid ventricular response: (5) CAD (coronary artery disease): Plan 69yo female with history of CAD s/p CABG x 3 on 03/26/2025 presenting with dizziness, palpitations, nausea and vomiting. Found to be in atrial fibrillation with RVR, low blood pressure. #Atrial fibrillation with RVR -no history of prior. Patient has converted to NSR following IV Metoprolol and Amiodarone. Blood pressure has improved. -Admit to PCU, transferred to [facility]-surg -CHADS-VASC score 6 - on Eliquis 5mg BID, will observe for signs of bleeding, tolerating well -Cardiology consultation appreciated: advised Metoprolol 100mg and Amio 200mg daily #Anemia -GI consult appreciated, scope most likely outpatient -May be related to recent procedure or lab variation -Hgb 8.8 04/06 --> 7.0 04/07 -1 unit RBCs transfused 04/07, post-transfusion H&H 8.6 -Hgb 9.8 04/10 AM -CT abdomen/pelvis without contrast to evaluate for bleed, unremarkable -GI team TERI Hemooccult test negative -Iron studies show elevated TIBC+transferrin, but total iron and %sat WNL -Low suspicion for GI bleed -Per case management, will need few days to re-enter rehab facility, will start Eliquis 5mg BID while patient is inpatient and observe for signs of bleeding, tolerating well #Constipation - No bowel movement since admission, patient is comfortable - Colace 100mg PO BID - Senokot 17.2 mg PO QAM #CAD/Elevated troponin - suspect secondary to AF with RVR, low blood pressure -Continue ASA, Atorvastatin, Metoprolol -Trend troponin (125.8, 173, 430, 411), peaked -ECHO shows EF 45-50%, severe L atrial dilation, mild MR #UTI - patient with leukocytosis WBC=16.7 -Follow culture sent from the ER, prelim culture shows +Klebsiella pneumoniae and +Citrobacter freundi complex -Switched from Ceftriaxone to Cefepime on 04/08 -UA 3+LE, >50 WBC, >20 RBC, 4+UB -WBC downtrended to 8.51 on 04/08 - D/c templeton catheter 04/11 #Elevated Cr - -Holding Entresto and Spironolactone -Avoid nephrotoxic agents -Renal dosing where needed -Repeat chemistry in AM #CHF -Hold Entresto and Spironolactone for now -Continue Metoprolol #Hypertension -Continue Metoprolol -Monitor BP #Hyperlipidemia -Continue Atorvastatin #Diabetes -last HgbA1C on 01/14/2025 = 8.1 -Hold Metformin -Lantus 5u BID -Insulin sliding scale Diet: heart healthy Code status: full VTE Prophylaxis: compression stockings Dispo: admit Admission and Anticipated Discharge Date Admission Date: April 07, 2025 Results & Data Results & Data Vital Signs (Past 12 Hours) Vital Signs Temp Pulse Resp BP Pulse Ox O2 Del Method 04/12/25 07:44 36.6 C 60 16 143/76 H 97 Room Air Resident Activity Tracking Resident Involvement: Resident Care Provided Care Provided: Adult Hospital Medicine (3) Hypotension Hypotension type: unspecified hypotension type Qualified Code(s): I95.9 - Hypotension, unspecified (5) CAD (coronary artery disease) Associated angina: unspecified whether angina present Coronary Disease- Associated Artery/Lesion type: unspecified vessel or lesion type [place] vs. transplanted heart: [place] heart Qualified Code(s): I25.10 - Atherosclerotic heart disease of [place] coronary artery without angina pectoris
--- NOTE | 2025-04-12 09:59 | Discharge Summary ---
Date of Service April 12, 2025 Admission HPI Per Admitting Provider Dinora Ko is a 69yo female with history of DM, HTN, GERD, CAD s/p 3V CABG performed at [facility] [place] on March 26, 2025. Surgery was well tolerated with no complications identified. Patient was discharged to [facility] for rehab one week ago on 04/02/25. She reports doing well at rehab until two nights ago when she developed some nausea and constipation. She was given TUMS and a bowel regimen then developed some diarrhea. She reports having a very bad day and restless night that night. This morning she woke and felt better. She ate some dinner around 17:00. Around 19:00 she developed some dizziness and a headache with nausea and vomiting. She had several episodes of nausea and non-bloody/non-bilious vomiting. She was given an anti-emetic but her nausea persisted so she came to the ER. She has occasional sharp chest pain. Was feeling some palpitations tonight. Otherwise no SOB. No fever. In the ER she was found to be in atrial fibrillation with RVR rate of 167bpm and low blood pressure to 70/50's. She was given IV Metoprolol and started on Amiodarone with conversion to NSR and improvement in blood pressure. To patient's knowledge she has no prior history of atrial fibrillation. No arrhythmia around the time of her surgery. ER Course: NSS x 1L Metoprolol 5mg IV Amiodarone 150mg IV then drip Ceftriaxone 2gm Admission Exam Per Admitting Provider Physical Exam: General: patient resting comfortably, NAD, non-toxic in appearance, AA&O x 4 Skin: warm, dry, intact, no rashes or lesions HEENT: NC/AT, PERRL, EOMI, anicteric sclera, conjunctiva without injection, external ear normal to inspection and nontender, nares patent, moist mucus membranes, dentition intact, no oropharyngeal lesions, neck supple, trachea midline, no LAD, no thyromegaly, no JVD Heart: +S1/S2, regular, no m/r/g, sternotomy incision well approximated with no bleeding/drainage/erythema or dehiscence Lungs: equal air entry bilaterally, no rales/rhonchi/wheezes Abd: +BS, soft, NT/ND, no masses/organomegaly/ascites Ext: warm, 2+ pulses in UE/LE bilaterally, no clubbing/cyanosis or edema Neuro: nonfocal, patient AA&O x 4, speech intact, no facial droop, moving all extremities on command with equal strength 5/5 Principal Diagnosis Afib with RVR Discharge Exam Constitutional WD/WN, vitals as above Respiratory normal respiratory effort, lungs clear to auscultation Cardiovascular RRR, no murmur, no edema Gastrointestinal (Abdomen) normal bowel sounds, soft, nontender, no hepatosplenomegaly Skin no rashes, warm and dry Discharge Data Allergies Allergy/AdvReac Type Severity Reaction Status Date / Time azithromycin Allergy Mild Unknown Verified 12/25/24 08:56 morphine Allergy Rash Verified 04/06/25 22:01 Consultations 04/06/25 23:22 ED Decision to Admit Stat 04/07/25 01:49 Consult Cardiology Routine 04/07/25 12:20 Consult Gastroenterology Routine Ordered Studies 04/07/25 12:02 CT Abdomen and Pelvis [CT abd pelvis wo con] Routine Hospital Course (1) Status post coronary artery bypass graft: (2) UTI (urinary tract infection): (3) Hypotension: (4) Atrial fibrillation with rapid ventricular response: (5) CAD (coronary artery disease): Plan 69yo female with history of CAD s/p CABG x 3 on 03/26/2025 presenting with dizziness, palpitations, nausea and vomiting. Found to be in atrial fibrillation with RVR, low blood pressure. #Atrial fibrillation with RVR -no history of prior. Patient has converted to NSR following IV Metoprolol and Amiodarone. Blood pressure has improved. -Admit to PCU, transferred to med-surg -CHADS-VASC score 6 - on Eliquis 5mg BID, will observe for signs of bleeding, tolerating well -Cardiology consultation appreciated: advised Metoprolol 100mg and Amio 200mg daily - stable, plan to d/c on Metoprolol 100mg QAM indefinitely, Amio 200mg QAM for 7 days, and Eliquis 5mg BID indefinitely #Anemia -GI consult appreciated, scope most likely outpatient -May be related to recent procedure or lab variation -Hgb 8.8 04/06 --> 7.0 04/07 -1 unit RBCs transfused 04/07, post-transfusion H&H 8.6 -Hgb 9.8 04/10 AM -CT abdomen/pelvis without contrast to evaluate for bleed, unremarkable -GI team TERI Hemooccult test negative -Iron studies show elevated TIBC+transferrin, but total iron and %sat WNL -Low suspicion for GI bleed -Restarted Eliquis 5mg BID on 04/09, tolerating well -stable, plan to d/c #Constipation - No bowel movement since admission, patient is comfortable - Colace 100mg PO BID - Senokot 17.2 mg PO QAM, patient refused - Patient refused Miralax treatment - Bisacodyl suppository provided on 04/12 #CAD/Elevated troponin - suspect secondary to AF with RVR, low blood pressure -Continue ASA, Atorvastatin, Metoprolol -Trend troponin (125.8, 173, 430, 411), peaked -ECHO shows EF 45-50%, severe L atrial dilation, mild MR #UTI - patient with leukocytosis WBC=16.7 -Follow culture sent from the ER, prelim culture shows +Klebsiella pneumoniae and +Citrobacter freundi complex -Switched from Ceftriaxone to Cefepime on 04/08 -UA 3+LE, >50 WBC, >20 RBC, 4+UB -WBC downtrended to 8.51 on 04/08 - D/c templeton catheter 04/11 - stable, plan to d/c on Cefdinir 200mg BID for 3 days #Elevated Cr - -Holding Entresto and Spironolactone -Avoid nephrotoxic agents -Renal dosing where needed #CHF -Hold Entresto and Spironolactone for now -Continue Metoprolol #Hypertension -Continue Metoprolol -Monitor BP #Hyperlipidemia -Continue Atorvastatin #Diabetes -last HgbA1C on 01/14/2025 = 8.1 -Hold Metformin -Lantus 5u BID -Insulin sliding scale Diet: heart healthy Code status: full VTE Prophylaxis: compression stockings Dispo: discharge to SNF at [facility] Total Time Total Time Spent Total Time Spent (In Minutes): <30 Discharge Plan Discharge Items Patient Disposition: Transfer [facility] Reason For Visit: ATRIAL FIBULATION W/ RVR, S/P CABG Discharge Diagnosis: Afib with RVR Condition on Discharge: Serious Activity: Per Instructions section Non-emergency contact: Primary Care Provider and 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 Upon arrival to the hospital, your blood pressures were low and you were having palpitations. You were given IV Metoprolol and Amiodarone, medications which converted you back to normal sinus rhythm. You have stayed in normal sinus rhythm during your time here. The cardiology team was able to see you and started you on oral Metoprolol and Amiodarone to help control your heart's rhythm and rate. During your time in the hospital, your hemoglobin dropped. We transfused with 1 unit of blood which increased your hemoglobin levels. To rule out a gastrointestinal bleed, the gastroenterology team was consulted. They performed a hemoccult exam with the rectal exam and did not find any signs of bleeding. Your hemoglobin levels have been stable since the transfusion. We think the low hemoglobin levels may be related to your recent CABG procedure or lab variation. However, the gastroenterology team recommended you have an endoscopy and colonoscopy outpatient to further evaluate. Since you were being evaluated for a bleed, we held off on blood thinner medication however once gastroenterology team confirmed likelihood of GI bleed was low as well as labs indicated stable hemoglobin levels, we started you on a blood thinner called Eliquis to help reduce the risk of stroke in the future. You did well on the medication. Additionally, during your time here your white blood cell count was elevated and your urine culture was positive for bacteria, so we started you on an antibiotic called Ceftriaxone. Once we received the culture back, we changed the antibiotic to Cefepime to cover the specific bacteria you were affected with. When leaving, we have started you on 4 different medications. Please continue to take the Eliquis 5mg one tablet twice daily. You will be on this medication indefinitely to prevent risk of future strokes or blood clots. Please continue to take Metoprolol 100mg one tablet daily in the morning. You will also be on this medication indefinitely to help with your heart rate. Please continue to take Amiodarone 200mg one tablet daily in the morning for the next 7 days. You can stop this medication after and continue as per recommendations of your PCP. Please take Cefdinir 300mg one tablet twice daily for the next 3 days for continued treatment of your UTI. Please continue your home medications as indicated. Since you have been at the hospital, it is important that you schedule a follow up with your primary care provider as soon as possible. Please inform him/her of the new medications you were started on, and follow as per his/her recommendations for chronic care. Please visit your nearest emergency room with any worsening symptoms or additional medical needs. Thank you for allowing us to be a part of your care. Pending Studies at Discharge: No Stand-Alone Forms: My [facility] Skilled Items Patient informed of condition?: Yes DNR: No Discharge Level of Care: Skilled Communicable Disease: No Discharge Prognosis: Improving Lines: None Urinary Catheter: No Medications and DC Order Prescriptions: New metoprolol succinate [Toprol XL] 100 mg tablet extended release 24 hr 100 mg PO DAILY Qty: 30 0RF Rx Instructions: Please take one tablet by mouth every morning indefinitely. amiodarone 200 mg tablet 200 mg PO QAM 7 Days Qty: 7 0RF Rx Instructions: Please take one tablet by mouth in morning for 1 week. cefdinir 300 mg capsule 300 mg PO BID 3 Days Qty: 6 0RF Rx Instructions: Please take 1 tablet twice a day for 3 days. Eliquis 5 mg tablet 5 mg PO BID Qty: 30 0RF Rx Instructions: Please take 1 tablet twice a day indefinitely. Continued metformin 500 mg tablet 500 mg PO BID spironolactone 25 mg tablet 25 mg PO QAM Qty: 90 3RF furosemide 20 mg tablet 20 mg PO DAILY PRN (Reason: 2-3 lb weight gain, edema, shortness of breath) Qty: 30 3RF atorvastatin 80 mg tablet 80 mg PO HS Qty: 90 3RF (DME) blood-glucose meter [OneTouch Verio Flex meter] [facility] See Rx Instructions .Route Qty: 2 11RF Rx Instructions: use to check blood sugar 6 times daily Ozempic 0.25 mg or 0.5 mg (2 mg/3 mL) pen injector 0.5 mg subcut Q7D Qty: 3 2RF Rx Instructions: inject once per week on same day each week (DME) OneTouch Verio test strips Strip See Rx Instructions .Route Rx Instructions: As directed (DME) pen needle, diabetic [BD Ultra-Fine Eda Pen Needle] 32 gauge x 5/32" needle See Rx Instructions .Route Qty: 100 0RF Rx Instructions: As directed fluticasone propionate 50 mcg/actuation spray,suspension 1 spray NA PRN (Reason: Nasal Congestion) Entresto 97-103 mg tablet 1 tab PO BID Qty: 180 3RF insulin glargine [Lantus Solostar U-100 Insulin] 100 unit/mL (3 mL) Insulin Pen 10 unit SUBCUT PM acetaminophen 325 mg Tablet 325 mg PO QID PRN (Reason: Pain) benzonatate 200 mg capsule 200 mg PO Q12H esomeprazole magnesium 40 mg capsule,delayed release(DR/EC) 40 mg PO DAILY cyanocobalamin (vitamin B-12) 1,000 mcg tablet 1,000 mcg PO DAILY Qty: 30 3RF aspirin [Children's Aspirin] 81 mg Tablet,Chewable 81 mg PO DAILY Qty: 60 0RF Discontinued metoprolol succinate 200 mg tablet extended release 24 hr 200 mg PO QAM Qty: 90 3RF Discharge Orders: Discharge Order (Routine); Ordered 04/12/25 Ordered By: Dilia Camacho Admission Data Admit Date/Time: 04/07/25 00:22 Attending Provider: Sergo Jackson Admit Provider: Sirisha Webber Primary Care Provider: Shelli العراقي Other Providers: [facility]; Sirisha Webber; Ronan Davis; Master Arias I Supervising Physician Co-Signing Physician Notes I personally examined the patient and verified all guerra points of history and exam, discussed case, and agree with decision making with Dr Camacho feeling good overall. feels up to going to SNF. feeling stronger. Vitals noted, in general she is awake and alert pleasant no acute distress does appear fatigued. HEENT normocephalic atraumatic mucous membranes moist. Cardio is now sinus rhythm rate of about 60. Breathing unlabored no accessory muscle use good effort. Skin without rashes pallor or icterus. Neuro without focal deficits. Atrial fibrillation with RVRpotentially postoperative A-fib with RVR, complication of care due to recent CABG, but at the same time she has a lot of left atrial enlargement and plenty of reason to have atrial fibrillation just b ecauseso more than likely the postoperative state and physiologic stress are more the "why now" rather than the true underlying why she had atrial fibrillation to begin with. Continue metoprolol and amiodarone for now, hopefully will be able to maintain rate control just with metoprolol and we can hopefully DC the amiodarone in the near future. clinically no active bleeding; GI does not feel acute scopes warranted. stool heme negative. tolerating eliquis well. continue current care. updated team at [facility] Anemiastatus post 1 unit transfusion of packed red cellshemodynamically stable hemoglobin has risen quite a bit. The "easy answer" would be related to her recent rather massive surgery doubt if she ever had true bleeding - has done nothing but improve even after starting eliquis. updated team at [facility]. tolerating eliquis well. Hgb has been stable otherwise as above
[2025-04-12 12:48] VITALS: BP 136/74; PULSE 62; TEMP 97.3; O2SAT 98
--- NOTE | 2025-04-12 14:41 | Billing Data ---
Date of Service April 12, 2025 Coding Level of Care Code 58895 IN/OBS DISCH 30 MIN/LESS
--- NOTE | 2025-04-12 14:42 | Billing Data ---
Date of Service April 12, 2025 Coding Level of Care Code 32242 IN/OBS DISCH 30 MIN/LESS
== END 2025-04-12 15:38 | DRG 315 ==
LOC: ED 21:35 → 2E 04-07 00:22 → SUATTDRO 04-07 00:22 → 2E 04-07 01:23 → 3E 04-09 22:24